=== PATIENT | female | born 1980 | race Caucasian/White ===

== ENCOUNTER 2017-06-05 09:07 | Emergency (ER) | payer MEDICAID, SELFPAY ==
[2017-06-05 09:24] LABS: UTC Influenza A Antigen Positive (Negative); UTC Influenza B Antigen Negative (Negative)
--- NOTE | 2017-06-05 09:27 | HMH.EDUTC ---
[facility] [place] Disposition Clinical Impression: Influenza A Disposition: Home, Self-Care Condition on Discharge: Good Instructions: DI for Influenza -- Adult Additional Instructions: Rest, fluids, Tylenol/Motrin as needed for fever. No work at [employer] until fever free X 24 hours. Forms: Work/School Release Time of Disposition: 09:38 Medical Decision Making - Medical Records Medical records reviewed: Yes: I reviewed the patient's medical records. - Lab Data Lab results reviewed: Yes: I reviewed the patient's lab results. Lab Results 06/05/17 09:22: Influenza Type A Ag Positive A, Influenza Type B Ag Negative - Jayden Inquiry Pt receiving controlled substance: No [facility] [place] HPI - General Stated complaint: flu like symptoms Time Seen by Provider: 06/05/17 09:28 - History of Present Illness Provider Complaint: Headache, fever, body aches, chills and sneezing X 1 day. No cough. No vomiting or diarrhea. Does have ear pain. Multiple sick contacts. Onset (ago): day(s) (1) Location: head, chest Associated symptoms: fever/chills, headaches, loss of appetite, malaise Treatments prior to arrival: NSAID - Related Data Home Medications Medication Instructions Recorded Confirmed escitalopram 20 mg tablet 20 mg PO QDAY 05/26/17 estradiol 2 mg tablet 2 mg PO QDAY 05/26/17 pantoprazole 40 mg tablet,delayed 40 mg PO QAM 05/26/17 release Previous Rx's Medication Instructions Recorded prednisone 20 mg tablet 20 mg PO BID #10 tab 05/26/17 Brompheniramine/Pseudoephed/Dm 5 - 10 ml PO Q4HP PRN 10 Days #240 06/05/17 [Bromfed DM Cough Syrup 5mL] syrup Oseltamivir Phosphate [Tamiflu 75 mg PO BID 5 Days #10 cap 06/05/17 75mg Capsule] Allergies Allergy/AdvReac Type Severity Reaction Status Date / Time lamotrigine [From Lamictal] Allergy Intermediate I-RASH Verified 05/26/17 14:15 codeine AdvReac Mild NA-NAUSEA Verified 05/26/17 14:15 [facility] History Medical History: Reports:: Depression, Gastroesophageal Reflux Disease(GERD) Other Surgeries: Yes: Appendectomy, Hysterectomy-Total, Other Amputation: No Fractures: Yes - *Social History Smoking Status: Current every day smoker Tobacco Type: cigarettes # Packs/Day (cigarettes): 1 #Yrs smoked (if former smoker): 20 Alcohol Intake: never Substance Use Type: denies use *Family Hx:: Cancer, Heart Attack, Hypertension, Thyroid Disorder ROS Obtained: Yes All systems reviewed & no additional complaints - Constitutional Constitutional: Reports body ache, Reports chills, Reports fever(s) - ENT Ears, Nose, Mouth, and Throat: Reports otalgia, Reports nasal congestion, Reports nasal discharge, Reports sinus pressure - Musculoskeletal Musculoskeletal: Reports muscle aches Physical Exam - General General appearance: alert - Head Head exam: atraumatic, normocephalic, normal inspection - Eye Eye exam: Present: normal appearance, PERRL, EOMI - ENT ENT exam: Present: normal exam, normal oropharynx, mucous membranes moist, TM's normal bilaterally, normal external ear exam - Expanded ENT Exam TM/Canal exam: Bilateral TM: effusion Nose exam: Present: sinus tenderness - Neck Neck exam: Present: normal inspection, full ROM, trachea midline. Absent: meningismus, lymphadenopathy - Chest Chest inspection: Present: normal inspection, symmetric chest wall rise. Absent: tenderness - Respiratory Respiratory exam: Present: normal lung sounds bilaterally. Absent: respiratory distress - Cardiovascular Cardiovascular exam: Present: regular rate, normal rhythm. Absent: JVD - Abdominal Exam Abdominal exam: Present: soft, normal bowel sounds. Absent: distention, tenderness, guarding - Extremities Exam Extremities exam: Present: normal inspection, full ROM, normal capillary refill. Absent: calf tenderness - Back Exam Back exam: Present: normal inspection. Absent: tenderness - Neurological Exam Neurological exam: Present: alert, oriented X3 - Psych
[2017-06-05 09:28] VITALS: BP 133/87; PULSE 95; RESP 20; TEMP 36.7; O2SAT 96; BMI 36.4
--- NOTE | 2017-06-05 09:31 | ED_ITS ---
[facility] [place]ression: Influenza A Disposition: Home, Self-Care Condition on Discharge: Good Instructions: DI for Influenza -- Adult Additional Instructions: Rest, fluids, Tylenol/Motrin as needed for fever. No work at [employer] until fever free X 24 hours. Forms: Work/School Release Time of Disposition: 09:38 Medical Decision Making - Medical Records Medical records reviewed: Yes: I reviewed the patient's medical records. - Lab Data Lab results reviewed: Yes: I reviewed the patient's lab results. Lab Results 06/05/17 09:22: Influenza Type A Ag Positive A, Influenza Type B Ag Negative - Jayden Inquiry Pt receiving controlled substance: No [facility] [place] - General Stated complaint: flu like symptoms Time Seen by Provider: 06/05/17 09:28 - History of Present Illness Provider Complaint: Headache, fever, body aches, chills and sneezing X 1 day. No cough. No vomiting or diarrhea. Does have ear pain. Multiple sick contacts. Onset (ago): day(s) (1) Location: head, chest Associated symptoms: fever/chills, headaches, loss of appetite, malaise Treatments prior to arrival: NSAID - Related Data Home Medications Medication Instructions Recorded Confirmed escitalopram 20 mg tablet 20 mg PO QDAY 05/26/17 estradiol 2 mg tablet 2 mg PO QDAY 05/26/17 pantoprazole 40 mg tablet,delayed 40 mg PO QAM 05/26/17 release Previous Rx's Medication Instructions Recorded prednisone 20 mg tablet 20 mg PO BID #10 tab 05/26/17 Brompheniramine/Pseudoephed/Dm 5 - 10 ml PO Q4HP PRN 10 Days #240 06/05/17 [Bromfed DM Cough Syrup 5mL] syrup Oseltamivir Phosphate [Tamiflu 75 mg PO BID 5 Days #10 cap 06/05/17 75mg Capsule] Allergies Allergy/AdvReac Type Severity Reaction Status Date / Time lamotrigine [From Lamictal] Allergy Intermediate I-RASH Verified 05/26/17 14:15 codeine AdvReac Mild NA-NAUSEA Verified 05/26/17 14:15 [facility] History Medical History: Reports:: Depression, Gastroesophageal Reflux Disease(GERD) Other Surgeries: Yes: Appendectomy, Hysterectomy-Total, Other Amputation: No Fractures: Yes - *Social History Smoking Status: Current every day smoker Tobacco Type: cigarettes # Packs/Day (cigarettes): 1 #Yrs smoked (if former smoker): 20 Alcohol Intake: never Substance Use Type: denies use *Family Hx:: Cancer, Heart Attack, Hypertension, Thyroid Disorder ROS Obtained: Yes All systems reviewed & no additional complaints - Constitutional Constitutional: Reports body ache, Reports chills, Reports fever(s) - ENT Ears, Nose, Mouth, and Throat: Reports otalgia, Reports nasal congestion, Reports nasal discharge, Reports sinus pressure - Musculoskeletal Musculoskeletal: Reports muscle aches Physical Exam - General General appearance: alert - Head Head exam: atraumatic, normocephalic, normal inspection - Eye Eye exam: Present: normal appearance, PERRL, EOMI - ENT ENT exam: Present: normal exam, normal oropharynx, mucous membranes moist, TM's normal bilaterally, normal external ear exam - Expanded ENT Exam TM/Canal exam: Bilateral TM: effusion Nose exam: Present: sinus tenderness - Neck Neck exam: Present: normal inspection, full ROM, trachea midline. Absent: meningismus, lymphadenopathy - Chest Chest inspection: Present: normal inspection, symmetric chest wall ri
== END 2017-06-05 09:46 | disposition home or self-care (01) ==
LOC: UTC 09:50
PROVIDERS: Emergency Provider Physician Assistant; Family Provider Nurse Practitioner Family; PCP Nurse Practitioner Family
DX: J10.1 Influenza due to other identified influenza virus with other respiratory manifestations (principal); Z79.899 Other long term (current) drug therapy; K21.9 Gastro-esophageal reflux disease without esophagitis; F17.210 Nicotine dependence, cigarettes, uncomplicated
CPT/HCPCS: 87804; 99202

== ENCOUNTER → 2017-07-31 14:45 | Outpatient (CLI) | payer MEDICAID, SELFPAY ==
[2017-07-31 19:26] LABS: Amphetamine/Metha Screen,Urine Negative ng/mL (<1000); Barbiturates Screen,Urine Negative ng/mL (<200); Benzodiazepines Screen,Urine Negative ng/mL (200); Cannabinoid Screen,Urine Negative ng/mL (<50); Cocaine Screen,Urine Negative ng/g (<300); Methadone Screen,Urine Negative ng/mL (<300); Opiate Screen,Urine Negative ng/mL (<300); Phencyclidine Screen,Urine Negative ng/mL (<25)
== END ==
PROVIDERS: Visit Provider Nurse Practitioner Family
DX: R68.89 Other general symptoms and signs (principal); Z79.899 Other long term (current) drug therapy
CPT/HCPCS: 80305

== ENCOUNTER 2017-08-09 10:21 | Emergency (ER) | payer MEDICAID, SELFPAY ==
[2017-08-09 10:32] VITALS: BP 144/91; PULSE 109; RESP 20; TEMP 36.8; O2SAT 98; BMI 35.5
--- NOTE | 2017-08-09 10:49 | HMH.EDUTC ---
[facility] [place] Clinical Impression: Upper respiratory infection Qualifiers: URI type: unspecified URI Qualified Code(s): J06.9 - Acute upper respiratory infection, unspecified Disposition: Home, Self-Care Condition on Discharge: Good Instructions: Cough, Sore Throat, DI for Sinusitis Additional Instructions: * Monitor Temp. Tylenol and/or Ibuprofen as needed. ER if fever is no less than 101 despite alternating Tylenol and Ibuprofen * Encourage fluids, water, Gatorade, powerade, pedialyte if /toddler/or child * Warm salt water gargles for throat irritation *Warm fluids *Sore throat lozenges *Sleep elevated *humidifier or vaporizer Lots of rest Increase fluids, water, Gatorade, powerade *Your throat swab was sent to lab for culture. Those results area typically sent to your primary care physician. Be sure to follow up in 2-3 days if no improvement so they can review those results and treat if necessary If you dont have primary care I recommend you get one, but in the mean time you will have to return to a walk in clinic Follow up IMMEDIATELY for new or worsening of symptoms OR no noticeable improvement over the next 48-72 hours. 911 immediately for any life threatening symptoms such as chest pain or difficulty breathing Prescriptions: Azithromycin [Z-Gold 250mg Tab] 250 mg PO UD DOSE PK #6 tab Dextromethorphan Polistirex [Delsym] 10 ml PO Q12H PRN #350 [email or web address].[email or web address] PRN Reason: Cough predniSONE [Prednisone 20mg Tab] 20 mg PO BID #10 tab Referrals: Gaetano Cai APRN [Primary Care Provider] - Time of Disposition: 11:06 Medical Decision Making - Medical Records Medical records reviewed: Yes: I reviewed the patient's medical records. - Jayden Inquiry Pt receiving controlled substance: No Jayden was queried for this patient: No Vital Signs: 08/09/17 10:32 Temperature 98.2 F Temperature Source Oral Pulse Rate [Right Brachial] 109 H Respiratory Rate 20 Blood Pressure [Right Arm] 144/91 Blood Pressure Mean [Right Arm] 108 Blood Pressure Source [Right Arm] Automatic Cuff Blood Pressure Position [Right Arm] Sitting 02 Sat by Pulse Oximetry 98 Oxygen Delivery Method Room Air - Lab Data Lab results reviewed: Yes: I reviewed the patient's lab results. [facility] [place] - General Stated complaint: sore/swollen throat sneezing cough stuffy nose Time Seen by Provider: 08/09/17 10:45 Mode of Arrival: Family Vehicle Source of Information: Patient Limitations: No Limitations Description of Symptoms (Recalled from Triage Doc. by RN): C/O SORE THROAT,COUGH AND NASAL CONGESTION HEENT Symptoms (Recalled from RN notes): Yes Resp Symptoms (Recalled from RN notes): Yes Skin Symptoms (Recalled from RN notes): No MS Symptoms (Recalled from RN notes): No Functional Status (Recalled from RN notes): N/A - History of Present Illness Provider Complaint: Patient state that she has been having sinus pain and pressure along with sore throat, cough and chills States that she has had the flu already this season and worried that she may have it again State that she feels bad and had a sinus headache - Related Data Home Medications Medication Instructions Recorded Confirmed escitalopram 20 mg tablet 20 mg PO QDAY 05/26/17 08/09/17 estradiol 2 mg tablet 2 mg PO QDAY 05/26/17 08/09/17 pantoprazole 40 mg tablet,delayed 40 mg PO QAM 05/26/17 08/09/17 release Phentermine HCl [Adipex-P] 37.5 mg PO DAILY 08/09/17 08/09/17 Previous Rx's Medication Instructions Recorded Azithromycin [Z-Gold 250mg Tab] 250 mg PO UD DOSE PK #6 tab 08/09/17 Dextromethorphan Polistirex 10 ml PO Q12H PRN #350 estefany.er.12h 08/09/17 [Delsym] predniSONE [Prednisone 20mg 20 mg PO BID #10 tab 08/09/17 Tab] Allergies Allergy/AdvReac Type Severity Reaction Status Date / Time lamotrigine [From Lamictal] Allergy Intermediate I-RASH Verified 07/31/17 09:02 codeine AdvReac Mild NA-NAUSEA Verified 07/31/17 09:02 - Worker's Comp I
--- NOTE | 2017-08-09 11:03 | ED_ITS ---
[facility] – [place] Disposition Clinical Impression: Upper respiratory infection Qualifiers: URI type: unspecified URI Qualified Code(s): J06.9 - Acute upper respiratory infection, unspecified Disposition: Home, Self-Care Condition on Discharge: Good Instructions: Cough, Sore Throat, DI for Sinusitis Additional Instructions: * Monitor Temp. Tylenol and/or Ibuprofen as needed. ER if fever is no less than 101 despite alternating Tylenol and Ibuprofen * Encourage fluids, water, Gatorade, powerade, pedialyte if /toddler/or child * Warm salt water gargles for throat irritation *Warm fluids *Sore throat lozenges *Sleep elevated *humidifier or vaporizer Lots of rest Increase fluids, water, Gatorade, powerade *Your throat swab was sent to lab for culture. Those results area typically sent to your primary care physician. Be sure to follow up in 2-3 days if no improvement so they can review those results and treat if necessary If you don? t have primary care I recommend you get one, but in the mean time you will have to return to a walk in clinic Follow up IMMEDIATELY for new or worsening of symptoms OR no noticeable improvement over the next 48-72 hours. 911 immediately for any life threatening symptoms such as chest pain or difficulty breathing Prescriptions: Azithromycin [Z-Gold 250mg Tab] 250 mg PO UD DOSE PK #6 tab Dextromethorphan Polistirex [Delsym] 10 ml PO Q12H PRN #350 [email or web address].er.12h PRN Reason: Cough predniSONE [Prednisone 20mg Tab] 20 mg PO BID #10 tab Referrals: Gaetano Cai APRN [Primary Care Provider] - Time of Disposition: 11:06 Medical Decision Making - Medical Records Medical records reviewed: Yes: I reviewed the patient's medical records. - Jayden Inquiry Pt receiving controlled substance: No Jayden was queried for this patient: No Vital Signs: 08/09/17 10:32 Temperature 98.2 F Temperature Source Oral Pulse Rate [Right Brachial] 109 H Respiratory Rate 20 Blood Pressure [Right Arm] 144/91 Blood Pressure Mean [Right Arm] 108 Blood Pressure Source [Right Arm] Automatic Cuff Blood Pressure Position [Right Arm] Sitting 02 Sat by Pulse Oximetry 98 Oxygen Delivery Method Room Air - Lab Data Lab results reviewed: Yes: I reviewed the patient's lab results. [facility] [place] HPI - General Stated complaint: sore/swollen throat sneezing cough stuffy nose Time Seen by Provider: 08/09/17 10:45 Mode of Arrival: Family Vehicle Source of Information: Patient Limitations: No Limitations Description of Symptoms (Recalled from Triage Doc. by RN): C/O SORE THROAT, COUGH AND NASAL CONGESTION HEENT Symptoms (Recalled from RN notes): Yes Resp Symptoms (Recalled from RN notes): Yes Skin Symptoms (Recalled from RN notes): No MS Symptoms (Recalled from RN notes): No Functional Status (Recalled from RN notes): N/A - History of Present Illness Provider Complaint: Patient state that she has been having sinus pain and pressure along with sore throat, cough and chills States that she has had the flu already this season and worried that she may have it again State that she feels bad and had a sinus headache - Related Data Home Medications Medication Instructions Recorded Confirmed escitalopram 20 mg tablet 20 mg PO QDAY 05/26/17 08/09/17 estradiol 2 mg tablet 2 mg PO QDAY 05/26/17 08/09/17 pantoprazole 40 mg tablet,delayed 40 mg PO QAM 05/26/17 08/09/17 release Phentermine HCl [Adipex-P] 37.5 mg PO AYANNA
[2017-08-09 11:19] LABS: UTC Influenza A Antigen Negative (Negative); UTC Influenza B Antigen Negative (Negative); UTC Strep Screen (Rapid) Negative (Negative)
[2017-08-09 11:29] VITALS: BP 140/88; PULSE 90; RESP 20; TEMP 36.6; O2SAT 98
== END 2017-08-09 11:32 | disposition home or self-care (01) ==
PROVIDERS: Emergency Provider Nurse Practitioner; Family Provider Nurse Practitioner Family; PCP Nurse Practitioner Family
DX: J10.1 Influenza due to other identified influenza virus with other respiratory manifestations (principal); F17.210 Nicotine dependence, cigarettes, uncomplicated; K21.9 Gastro-esophageal reflux disease without esophagitis; Z88.6 Allergy status to analgesic agent; Z88.8 Allergy status to other drugs, medicaments and biological substances
CPT/HCPCS: 87804; 87880; 99202

== ENCOUNTER → 2018-03-31 20:04 | Outpatient (CLI) | payer MEDICAID, SELFPAY ==
[2018-03-31 21:23] LABS: Amphetamine/Metha Screen,Urine Negative ng/mL (<1000); Barbiturates Screen,Urine Negative ng/mL (<200); Benzodiazepines Screen,Urine Negative ng/mL (<200); Cannabinoid Screen,Urine Negative ng/mL (<50); Cocaine Screen,Urine Negative ng/mL (<300); Methadone Screen,Urine Negative ng/mL (<300); Opiate Screen,Urine Negative ng/mL (<300); Phencyclidine Screen,Urine Negative ng/mL (<25)
== END ==
PROVIDERS: Visit Provider Nurse Practitioner Family
DX: Z79.899 Other long term (current) drug therapy (principal)
CPT/HCPCS: 80305

== ENCOUNTER → 2018-04-23 09:08 | Outpatient (CLI) | payer MEDICAID, SELFPAY ==
--- NOTE | 2018-04-23 09:11 | CA_ITS ---
PROCEDURE: 2-D M-mode and color Doppler study INDICATIONS FOR THE TEST: Chest pain + COPD Heart Murmur Tobacco Smoking Palpitations+ Fatigue Syncope Edema+ Hypertension+Diabetes Mellitus Rheumatic Fever SOB ELIZONDO Obesity+Hyperlipidemia Family History HD Additional History AYDE, adn EKG PATIENT INFORMATION HEIGHT: 68 WEIGHT:208 GENDER: Female B/P:158/100 2-D/M-MODE INTERPRETATION: 2-D MEASUREMENTS OBSERVED VALUES IN CMS Right Ventricular Dimension (RVDd) 1.3 Interventricular Septum (Thickness)(IVsd) 1.1 Left Ventricular Internal Dimensions(LVIDd) 4.7 Left Ventricular Posterior Wall (Thickness)(LVPWd) 1.1 Aortic Root 2.0 Aortic Cusp Separation 2.0 Left Atrial Dimensions (LAD) 3.7 2D 1. Left atrium is normal size, left ventricle is normal size, there is no concentric left ventricular hypertrophy, visually estimated ejection fraction 55% with no regional wall motion abnormality. 2. The right atrium and right ventricle are normal size and contractility. 3. The aortic, mitral and tricuspid valvular grossly normal. 4. The pulmonic valve is poorly visualized. 5. No significant pericardial effusion noted. DOPPLER INTERROGATION: Doppler interrogation of the aortic, mitral and tricuspid valvular presence of mild mitral and tricuspid regurgitation, tricuspid regurgitation jet velocity is inadequate for calculation of the right ventricular systolic pressure, diastolic parameters are within normal range. CONCLUSION: 1. Normal left ventricular size, preserved left ventricular systolic function, visually estimated ejection fraction 55% with no regional wall motion abnormality, diastolic parameters are within normal range. 2. Mild mitral and tricuspid regurgitation. 3. No significant pericardial effusion noted.
== END ==
PROVIDERS: PCP Emergency Medicine; Visit Provider Internal Medicine Cardiovascular Disease
DX: R07.9 Chest pain, unspecified (principal); R94.31 Abnormal electrocardiogram [ECG] [EKG]; I10 Essential (primary) hypertension; E66.9 Obesity, unspecified; F43.9 Reaction to severe stress, unspecified; G47.33 Obstructive sleep apnea (adult) (pediatric); K21.9 Gastro-esophageal reflux disease without esophagitis; R06.83 Snoring; Z72.0 Tobacco use
CPT/HCPCS: 93306

== ENCOUNTER → 2018-04-26 08:24 | Outpatient (CLI) | payer MEDICAID, SELFPAY ==
[2018-04-26 08:52] LABS: Basophils # 0.1 K/mm3 (0-0.2); Basophils % 0.6 % (0.1-2.0); Eosinophils # 0.1 K/mm3 (0.0-0.4); Eosinophils % 1.6 % (0.1-12.0); Hematocrit 38.2 % (37.0-47.0); Hemoglobin 12.5 g/dL (12.2-16.2); Lymphocytes # 3.1 K/mm3 (0.7-4.5); Lymphocytes % 35.7 % (10-50); Mean Corpuscular HGB Conc 32.8 g/dL (31.8-35.4); Mean Corpuscular Hemoglobin 29.3 pg (27.0-31.2); Mean Corpuscular Volume 89.2 fl (81-99); Mean Platelet Volume 8.4 fl (7.4-10.4); Monocytes # 0.4 K/mm3 (0.1-1.0); Monocytes % 4.5 % (1.7-9.3); Neutrophils # 4.9 K/mm3 (1.8-7.8); Neutrophils % 57.5 % (37.0-80.0); Platelet Count 256 K/mm3 (142-424); Red Blood Count 4.28 M/mm3 (4.20-5.40); Red Cell Distribution Width 12.8 % (11.5-17.5); White Blood Count 8.5 K/mm3 (4.8-10.8)
[2018-04-26 10:11] LABS: Alanine Aminotransferase 24 U/L (12-78); Albumin Level 3.1 gm/dL (3.4-5.0); Albumin/Globulin Ratio 0.9 (1.1-1.8); Alkaline Phosphatase 76 U/L (46-116); Anion Gap 11.6 mEq/L (5-15); Aspartate Amino Transferase 13 U/L (15-37); Bilirubin,Total 0.3 mg/dL (0.2-1.0); Blood Urea Nitrogen 9 mg/dL (7-18); Calcium 8.5 mg/dL (8.5-10.1); Carbon Dioxide 28 mmol/L (21.0-32.0); Chloride 106 mmol/L (98-107); Creatinine,Serum 0.64 mg/dL (0.55-1.02); Estimated Glomerular Filt Rate 106 ml/min (>60); GFR (African American) 128 ML/MIN (>60); Globulin 3.6 gm/dl (1.3-3.2); Glucose 105 mg/dL (74-106); Potassium 4.6 mmoL/L (3.5-5.1); Sodium 141 mmol/L (136-145); T4 (Thyroxine) 9.5 ug/dl (4.7-13.3); Thyroid Stimulating Hormone 2.45 uIU/ml (0.358-3.740); Total Protein,Serum 6.7 gm/dL (6.4-8.2)
== END ==
PROVIDERS: Visit Provider Nurse Practitioner Family
DX: I10 Essential (primary) hypertension (principal)
CPT/HCPCS: 36415; 80053; 84436; 84443; 85025

== ENCOUNTER → 2019-06-02 11:25 | Outpatient (CLI) | payer MEDICAID, SELFPAY ==
[2019-06-05 21:50] LABS: Amphetamines IA Negative ng/mL (Cutoff:50); Barbituates IA Negative ug/mL (Cutoff:0.1); Benzodiazepines IA Negative ng/mL (Cutoff:20); Cocaine & Metabolites IA Negative ng/mL (Cutoff:25); Methadone IA Negative ng/mL (Cutoff:25); Opiates IA Negative ng/mL (Cutoff:5); Oxycodone IA Negative ng/mL (Cutoff:5); Phencyclidine IA Negative ng/mL (Cutoff:8); THC (marijauna) metabolite IA Negative ng/mL (Cutoff:5)
[2019-06-08 17:34] LABS: Propoxyphene IA Negative ng/mL (Cutoff:50)
[2019-07-29 19:03] LABS: Buprenorphine NEGATIVE; Norbuprenorphine NEGATIVE
== END ==
PROVIDERS: Visit Provider Nurse Practitioner Psychiatric/Mental Health
DX: F31.81 Bipolar II disorder (principal); F41.1 Generalized anxiety disorder; G47.00 Insomnia, unspecified
CPT/HCPCS: 36415; 80307; 80348

== ENCOUNTER → 2020-05-14 14:11 | Outpatient (CLI) | payer MEDICAID, SELFPAY ==
--- NOTE | 2020-05-14 14:14 | XR_ITS ---
PROCEDURE: XR CERVICAL SPINE 4V CLINICAL INDICATION: neck pain COMPARISON: No exams were available for comparison FINDINGS: There is normal curvature and alignment. C1 through C7 appear intact. Disc spaces are normal throughout. Oblique films show normal neural foramina bilaterally. The prevertebral soft tissues are normal. The odontoid view shows the tip of the odontoid to be partially obscured by the simple skull but it appears grossly normal on the oblique views. IMPRESSION: Unremarkable cervical spine Dictated by: Dr. Shemar Zaidi MD 05/14/2020 14:33 Dr. Shemar Zaidi MD in [place] 05/14/2020 14:33
== END ==
PROVIDERS: PCP Emergency Medicine; Visit Provider Physician Assistant
DX: M54.2 Cervicalgia (principal)
CPT/HCPCS: 72050

== ENCOUNTER 2020-06-21 10:19 | Emergency (ER) | payer MEDICAID, SELFPAY ==
[2020-06-21 10:20] VITALS: BP 153/103; PULSE 74; RESP 20; TEMP 36.6; O2SAT 99; BMI 39.1
--- NOTE | 2020-06-21 10:25 | HMH.EDUTC ---
[facility] – [place] Disposition Clinical Impression: Gastroenteritis, Viral syndrome Disposition: Home, Self-Care Condition on Discharge: Good Instructions: DI for Viral Gastroenteritis -- Adult Additional Instructions: Drink plenty of fluids. Take tylenol for pain or fever. Take the zofran for nausea. Follow up with your regular doctor. GO TO THE ER FOR ANY WORSENING SYMPTOMS Prescriptions: Ondansetron [Zofran 4mg ODT] 4 mg PO Q8HP PRN #20 tab.rapdis PRN Reason: Nausea Transmission Status: Received by [facility] Referrals: Daniel Khalil MD [Primary Care Provider] - Forms: Work/School Release Time of Disposition: 10:45 Medical Decision Making - Medical Records Medical records reviewed: No: I reviewed the patient's medical records. - Jayden Inquiry Pt receiving controlled substance: No Vital Signs: 06/21/20 10:20 06/21/20 10:48 Temperature 97.8 F 97.8 F Temperature Source Oral Pulse Rate 74 Pulse Rate [Right Brachial] 74 Respiratory Rate 20 20 Blood Pressure 153/103 H Blood Pressure [Right Arm] 153/103 H Blood Pressure Mean [Right Arm] 119 Blood Pressure Source [Right Arm] Automatic Cuff Blood Pressure Position [Right Arm] Sitting 02 Sat by Pulse Oximetry 99 Oxygen Delivery Method Room Air [facility] [place] HPI - General Stated complaint: vomiting,diarrhea Time Seen by Provider: 06/21/20 10:25 - History of Present Illness Provider Complaint: She states that since yesterday evening around 1800 she has had nausea and diarrhea. She has not vomited, but she has felt like she is going to. She denies any abdominal pain. She states that she has had her appendix and gall bladder removed removed in the past. She denies any exposure to covid-19. She refuses a covid test today. - Related Data Previous Rx's Medication Instructions Recorded pantoprazole 40 mg tablet,delayed 40 mg PO DAILY #90 tab 12/11/19 release loratadine 10 mg tablet See Rx Instructions .ROUTE 03/29/20 .COMPLEX #90 tab phentermine 37.5 mg tablet 37.5 mg PO DAILY #30 tab 04/04/20 methylprednisolone 4 mg tablets in 4 mg PO PER PKG DIR 6 Days #21 tab 05/14/20 a dose pack aripiprazole 20 mg tablet 20 mg PO DAILY #30 tab 06/19/20 doxepin 25 mg capsule 25 mg PO QHS #30 cap 06/19/20 escitalopram oxalate 20 mg tablet 20 mg PO DAILY 30 Days #30 tab 06/19/20 hydroxyzine pamoate 25 mg capsule 25 mg PO TID PRN #90 cap 06/19/20 Ondansetron [Zofran 4mg ODT] 4 mg PO Q8HP PRN #20 tab.rapdis 06/21/20 Allergies Allergy/AdvReac Type Severity Reaction Status Date / Time lamotrigine [From Lamictal] Allergy Intermediate I-RASH Verified 05/14/20 10:23 codeine AdvReac Mild NA-NAUSEA Verified 05/14/20 10:23 [facility] History - Hepatitis A Screen Attestation statement:: This patient has been screened for Hepatitis A risk factors. I have reviewed the patient's past medical history: Yes Medical History: Reports:: Anxiety, Depression, Gastroesophageal Reflux Disease(GERD), Hypertension, Migraine Denies:: Atherosclerotic Heart Disease, Atrial Fibrillation, Cardiomyopathy, Congestive Heart Failure, Congenital Heart Disease, Coronary Artery Disease, Diabetes Mellitus Type 1, Diabetes Mellitus Type 2, Internal Pacemaker, Myocardial Infarction, Supraventricular Tachycardia, Valvular Heart Disease Other Surgeries: Yes: Appendectomy, Hysterectomy-Total, Other. No: Pacemaker Amputation: No Fractures: Yes (LEG) Comment: rt leg - Social History Smoking Status: Current every day smoker Tobacco Type: cigarettes # Packs/Day (cigarettes): 1 #Yrs smoked (if former smoker): 22 Alcohol Intake: never Substance Use Type: denies use, methamphetamine, crack/cocaine, marijuana Occupational Status: other - Psychiatric History Pschychiatric History:: Reports:: Anxiety, Depression Family Hx:: Cancer, Heart Attack, Hypertension, Thyroid Disorder Comment: Maternal Grandmother- of [place] at 63. Mother-AFIB ROS Obtained: Yes All syste
[2020-06-21 10:48] VITALS: BP 153/103; PULSE 74; RESP 20; TEMP 36.6; O2SAT 99
== END 2020-06-21 10:49 | disposition home or self-care (01) ==
PROVIDERS: Emergency Provider Nurse Practitioner Family; PCP Emergency Medicine
DX: K52.9 Noninfective gastroenteritis and colitis, unspecified (principal); B34.9 Viral infection, unspecified; F41.8 Other specified anxiety disorders; K21.9 Gastro-esophageal reflux disease without esophagitis; G43.709 Chronic migraine without aura, not intractable, without status migrainosus; Z88.5 Allergy status to narcotic agent; F17.210 Nicotine dependence, cigarettes, uncomplicated; Z79.899 Other long term (current) drug therapy
CPT/HCPCS: 99202; G0463

== ENCOUNTER 2020-08-11 17:18 | Emergency (ER) | payer MEDICAID, SELFPAY ==
[2020-08-11 17:25] VITALS: BP 168/90; PULSE 96; RESP 14; TEMP 36.9; O2SAT 98; BMI 39.3
--- NOTE | 2020-08-11 17:34 | HMH.EDUTC ---
[facility] [place] Clinical Impression: Contact dermatitis Qualifiers: Contact dermatitis type: allergic Contact dermatitis trigger: unspecified trigger Qualified Code(s): L23.9 - Allergic contact dermatitis, unspecified cause Disposition: Home, Self-Care Condition on Discharge: Good Instructions: DI for Contact Dermatitis, Contact Dermatitis Additional Instructions: apply cream if worsen return benadryl as needed for itching Prescriptions: Triamcinolone Acetonide 15 gm TP BID 7 Days #1 cream..g. Prescription Printed Referrals: Daniel Khalil MD [Primary Care Provider] - Time of Disposition: 17:46 Medical Decision Making - Jayden Inquiry Pt receiving controlled substance: No Vital Signs: 08/11/20 17:25 Temperature 98.5 F Temperature Source Oral Pulse Rate [Right] 96 H Respiratory Rate 14 Blood Pressure [Right Arm] 168/90 H Blood Pressure Mean [Right Arm] 116 Blood Pressure Source [Right Arm] Automatic Cuff Blood Pressure Position [Right Arm] Sitting 02 Sat by Pulse Oximetry 98 Oxygen Delivery Method Room Air [facility] [place] - General Chief complaint: [facility] Stated complaint: rash on hands Time Seen by Provider: 08/11/20 17:34 Mode of Arrival: Ambulatory Source of Information: Patient Limitations: No Limitations Description of Symptoms (Recalled from Triage Doc. by RN): pt has a rashe on both hands, both thumbs and pointing fingers. states shes been outdoors fishing. HEENT Symptoms (Recalled from RN notes): No Resp Symptoms (Recalled from RN notes): No Skin Symptoms (Recalled from RN notes): Yes (rash on hands) MS Symptoms (Recalled from RN notes): No Functional Status (Recalled from RN notes): na - History of Present Illness Provider Complaint: 39 yr old female presents with rash on both hands, both thumbs and pointing fingers. states shes been outdoors fishing. - Related Data Previous Rx's Medication Instructions Recorded pantoprazole 40 mg tablet,delayed 40 mg PO DAILY #90 tab 12/11/19 release phentermine 37.5 mg tablet 37.5 mg PO DAILY #30 tab 04/04/20 methylprednisolone 4 mg tablets in 4 mg PO PER PKG DIR 6 Days #21 tab 05/14/20 a dose pack doxepin 25 mg capsule 25 mg PO QHS #30 cap 06/19/20 escitalopram oxalate 20 mg tablet 20 mg PO DAILY 30 Days #30 tab 06/19/20 Ondansetron [Zofran 4mg ODT] 4 mg PO Q8HP PRN #20 tab.rapdis 06/21/20 meloxicam 7.5 mg tablet 7.5 mg PO DAILY 30 Days #30 tab 06/26/20 methylprednisolone 4 mg tablets in 4 mg PO PER PKG DIR 7 Days #7 tab 06/26/20 a dose pack aripiprazole 20 mg tablet 20 mg PO DAILY #30 tab 07/13/20 hydroxyzine pamoate 25 mg capsule 25 mg PO TID PRN #90 cap 07/13/20 loratadine 10 mg tablet See Rx Instructions .ROUTE 07/16/20 .COMPLEX #90 tab Triamcinolone Acetonide 15 gm TP BID 7 Days #1 cream..g. 08/11/20 Allergies Allergy/AdvReac Type Severity Reaction Status Date / Time lamotrigine [From Lamictal] Allergy Intermediate I-RASH Verified 06/26/20 13:42 codeine AdvReac Mild NA-NAUSEA Verified 06/26/20 13:42 - Worker's Comp Is this a Worker's Comp case?: No [facility] History - Hepatitis A Screen Drug use history?: No High risk sexual behaviors?: No History of sexually transmitted infection?: No Currently employed?: No Childcare worker?: No Do you have indoor plumbing?: Yes Do you have electricity?: Yes Attestation statement:: This patient has been screened for Hepatitis A risk factors. I have reviewed the patient's past medical history: Yes Medical History: Reports:: Anxiety, Depression, Gastroesophageal Reflux Disease(GERD), Hypertension, Migraine Denies:: Atherosclerotic Heart Disease, Atrial Fibrillation, Cardiomyopathy, Congestive Heart Failure, Congenital Heart Disease, Coronary Artery Disease, Diabetes Mellitus Type 1, Diabetes Mellitus Type 2, Internal Pacemaker, Myocardial Infarction, Supraventricular Tachycardia, Valvular Heart Disease Other Surgeries: Yes: Appendectomy, Hysterectomy-Total, Other
[2020-08-11 17:40] VITALS: BP 152/82; PULSE 93; RESP 16; TEMP 36.6
== END 2020-08-11 17:48 | disposition home or self-care (01) ==
PROVIDERS: Emergency Provider Nurse Practitioner Family; PCP Emergency Medicine
DX: L23.9 Allergic contact dermatitis, unspecified cause (principal); F41.8 Other specified anxiety disorders; K21.9 Gastro-esophageal reflux disease without esophagitis; I10 Essential (primary) hypertension; F17.210 Nicotine dependence, cigarettes, uncomplicated; Z88.5 Allergy status to narcotic agent; Z79.899 Other long term (current) drug therapy
CPT/HCPCS: 96372; 99202; G0463

== ENCOUNTER 2020-09-06 20:12 | Observation (INO) | payer MEDICAID, SELFPAY ==
[2020-09-06 20:13] VITALS: BMI 39.6
--- NOTE | 2020-09-06 20:14 | XR_ITS ---
PROCEDURE: XR CHEST PORTABLE CLINICAL HISTORY: Chest Pain COMPARISON: CT CTAC CTA-CHEST from 04/01/2017 CR CXR2V XR chest 2V from 04/17/2018 CR CXR2V XR chest 2V from 04/25/2018 CR CXR2V XR chest 2V from 10/03/2018 FINDINGS: The cardiomediastinal silhouette and pulmonary vascularity are within normal limits. The lungs are clear without infiltrates, suspicious nodules, or pleural effusions. No acute bony abnormalities. IMPRESSION: No acute findings. Dictated by: Cristian Garcia MD 09/07/2020 05:59 Cristian Garcia MD in [place] 09/07/2020 05:59
[2020-09-06 20:16] VITALS: BP 154/85; PULSE 78; RESP 18; TEMP 36.5; O2SAT 97; BMI 29.8
--- NOTE | 2020-09-06 20:20 | ECG_ITS ---
APPROVED REPORT Exam: Resting ECG HR:89 bpm ECG Measurements Heart Rate 89 AXES NJ 124 P 28 QRSd 76 QRS 57 QT 358 T 62 QTc 435 Conclusion Sinus rhythm with marked sinus arrhythmia ST abnormality, possible digitalis effect Abnormal ECG Electronically signed by : Parker Johnson, 09/07/2020 19:08:16
[2020-09-06 20:22] LABS: Basophils # 0.2 K/mm3 (0-0.2); Eosinophils # 0.2 K/mm3 (0.0-0.4); Eosinophils % 1.3 % (0.1-12.0); Hematocrit 44.7 % (37.0-47.0); Hemoglobin 14.9 g/dL (12.2-16.2); Lymphocytes # 5.3 K/mm3 (0.7-4.5); Mean Corpuscular HGB Conc 33.4 g/dL (31.8-35.4); Mean Corpuscular Hemoglobin 29.6 pg (27.0-31.2); Mean Corpuscular Volume 88.7 fl (81-99); Mean Platelet Volume 7.6 fl (7.4-10.4); Monocytes # 0.7 K/mm3 (0.1-1.0); Monocytes % 4.3 % (1.7-9.3); Neutrophils # 9.3 K/mm3 (1.8-7.8); Neutrophils % 59.4 % (37.0-80.0); Platelet Count 345 K/mm3 (142-424); Red Blood Count 5.04 M/mm3 (4.20-5.40); Red Cell Distribution Width 13.3 % (11.5-17.5); White Blood Count 15.6 K/mm3 (4.8-10.8)
[2020-09-06 20:25] LABS: Chloride 105 mmol/L (98-107); Sodium 141 mmol/L (136-145)
[2020-09-06 20:26] LABS: Potassium 3.6 mmoL/L (3.5-5.1)
[2020-09-06 20:28] LABS: Blood Urea Nitrogen 8 mg/dl (7-17); Estimated Glomerular Filt Rate 139 ml/min (>60); GFR (African American) 168 ML/MIN (>60)
[2020-09-06 20:29] LABS: Anion Gap 11.6 mEq/L (5-15); Carbon Dioxide 28 mmol/L (22.0-30.0); Glucose 120 mg/dl (74-100)
[2020-09-06 20:32] LABS: MANUAL DIFFERENTIAL MANUAL DIFFERENTIAL (MANUAL DIFF)
--- NOTE | 2020-09-06 20:41 | CT_ITS ---
PROCEDURE: CT ANGIO CHEST CLINCIAL INDICATION: chest pain Sudden onset of chest pain COMPARISON: CT CTAC CTA-CHEST from 04/01/2017 TECHNIQUE: IV Contrast: 70ML Isovue 370 Axial images obtained with sagittal and coronal reformats. All CT scans at the facility use one or more dose reduction, viz: automated exposure control, ma/kV adjustment per patient size (including targeted exams where dose is matched to indication, i.e. head), or iterative reconstruction technique. FINDINGS: HEART AND MEDIASTINAL STRUCTURES: 9 mm hypodense nodule in the left lobe of the thyroid gland. No evidence of pulmonary embolus, aortic aneurysm, or aortic dissection. There is some increased density in the anterior mediastinum and may be related to residual thymic tissue. LUNGS AND PLEURAL SPACES: Unremarkable. BONY STRUCTURES: No acute bony abnormalities apparent. UPPER ABDOMEN: Moderate amount of the ingested material within the stomach. ADDITIONAL FINDINGS: Scattered small axillary nodes IMPRESSION: 1. No acute finding 2. Other nonacute findings as described above. Dictated by: Cristian Garcia MD 09/07/2020 06:47 Cristian Garcia MD in [place] 09/07/2020 06:47
[2020-09-06 20:42] LABS: Creatinine Clearance Estimated 204 mL/min (50-200); Troponin I < 0.01 ng/ml (0.00-0.034)
[2020-09-06 20:56] LABS: Eosinophils % 3 % (0-3); Lymphocytes % 31 % (10-50); Monocytes % 2 % (2-9); Neutrophils % 62 % (42-76); Total Cells Counted 100
[2020-09-06 20:57] LABS: Platelet Estimate Normal; RBC Morphology Normal
--- NOTE | 2020-09-06 21:23 | HMH.EDCP ---
ED Disposition Clinical Impression: Obesity (BMI 30.0-34.9), Tobacco abuse Chest pain Qualifiers: Chest pain type: precordial pain Qualified Code(s): R07.2 - Precordial pain Hypertension Qualifiers: Hypertension type: essential hypertension Qualified Code(s): I10 - Essential (primary) hypertension Disposition: Admitted as Observation Condition on Discharge: Good - Critical Care Critical Care Time: No Attestation: On 09/06/20, the high probability of a clinically significant, sudden or life threatening deterioration of the following system(s) required my full and direct attention, intervention and personal management. The time I documented below is in addition to time spent performing reported procedures but includes the following listed in this critical care notation. Medical Decision Making - Medical Records Medical records reviewed: Yes: I reviewed the patient's medical records. - Jayden Inquiry Pt receiving controlled substance: No Vital Signs: 09/06/20 20:16 Temperature 97.7 F Temperature Source Oral Pulse Rate [Right Brachial] 78 Respiratory Rate 18 Blood Pressure [Right Arm] 154/85 H Blood Pressure Mean [Right Arm] 108 Blood Pressure Source [Right Arm] Automatic Cuff Blood Pressure Position [Right Arm] Sitting 02 Sat by Pulse Oximetry 97 Oxygen Delivery Method Room Air - Lab Data Lab results reviewed: Yes: I reviewed the patient's lab results. Lab Results 09/06/20 20:10: WBC 15.6 H, RBC 5.04, Hgb 14.9, Hct 44.7, MCV 88.7, MCH 29.6, MCHC 33.4, RDW 13.3, Plt Count 345, MPV 7.6, Neut % (Auto) 59.4, Lymph % (Auto) 34.0, Randolph % (Auto) 4.3, Eos % (Auto) 1.3, Baso % (Auto) 1.0, Neut # (Auto) 9.3 H, Lymph # (Auto) 5.3 H, Randolph # (Auto) 0.7, Eos # (Auto) 0.2, Baso # (Auto) 0.2, Total Counted 100, Neutrophils % (Manual) 62, Band Neutrophils % 2.0, Lymphocytes % (Manual) 31, Monocytes % (Manual) 2, Eosinophils % (Manual) 3, Platelet Estimate Normal, RBC Morphology Normal 09/06/20 20:10: Sodium 141, Potassium 3.6, Chloride 105, Carbon Dioxide 28, Anion Gap 11.6, BUN 8, Creatinine 0.50 L, Estimated Creat Clear 204, Estimated GFR 139, Est GFR ( Amer) 168, Glucose 120 H, Calcium 10.0, Troponin I < 0.01 Result diagrams: 09/06/20 20:10 09/06/20 20:10 Orders (Tests/Meds): ED MEDICATIONS Generic Name Dose Route Start Last Admin Trade Name Freq PRN Reason Stop Dose Admin Nitroglycerin 0.4 mg 09/06/20 20:57 09/06/20 20:57 Nitroglycerin 0.4mg Sl Tablet SL 10/06/20 20:56 0.4 mg Q5MINP PRN Administration Chest Pain Discontinued Medications Generic Name Dose Route Start Last Admin Trade Name Freq PRN Reason Stop Dose Admin Iopamidol 70 ml 09/06/20 21:14 09/06/20 21:16 Iopamidol-370 (76%);100ml Bottle IV 09/06/20 21:15 70 ml ONCE ONE Administration Nitroglycerin 1 gm 09/06/20 20:41 09/06/20 20:44 Nitroglycerin 1 Gm Ointment TD 09/06/20 20:42 1 gm ONCE ONE Administration Sodium Chloride 40 ml 09/06/20 21:14 09/06/20 21:15 0.9 % Sodium Chloride 50 Ml Vial IV 09/06/20 21:15 40 ml ONCE ONE Administration Sodium Chloride 10 ml 09/06/20 21:14 09/06/20 21:15 Sodium Chloride 0.9% 10ml Syr (Rad Only) IV 09/06/20 21:15 10 ml ONCE ONE Administration ORDERS Category Date Time Status CT angio chest Stat Cat Scan 09/06/20 20:41 Taken XR chest portable Stat Exams 09/06/20 20:14 Taken Full Resp Panel w/COVID ([facility]) Routine Lab 09/06/20 21:30 Received Troponin I Q3H Lab 09/06/20 23:15 Ordered Troponin I Q3H Lab 09/06/20 23:45 Ordered Troponin I Q3H Lab 09/07/20 02:15 Ordered Troponin I Q3H Lab 09/07/20 02:45 Ordered - Radiology Data #1 Image(s): Chest Image Reviewed: Yes I reviewed the patient's radiology image Preliminary Findings: Normal/NAD - CT Data CT Scan: Chest Time Received: 22:[address] Reviewed: Yes: I have viewed the radiologist's interpretation Preliminary Findings: Normal/NAD - ECG Data Tracing
[2020-09-06 21:34] LABS: Adenovirus,PCR Not Detected (NotDetected); Bordetella Pertussis Not Detected (NotDetected); Chlamydophila Pneumoniae, PCR Not Detected (NotDetected); Coronavirus 19, PCR Not Detected (NotDetected); Coronavirus 229E Not Detected (NotDetected); Coronavirus NL63 Not Detected (NotDetected); Coronavirus OC43 Not Detected (NotDetected); Coronovirus HKU1,PCR Not Detected (NotDetected); Human Metapneumovirus Not Detected (NotDetected); Influenza A, PCR Not Detected (NotDetected); Influenza AH1, 2009 Not Detected (NotDetected); Influenza AH1, PCR Not Detected (NotDetected); Influenza AH3,PCR Not Detected (NotDetected); Influenza B, PCR Not Detected (NotDetected); Mycoplasma Pneumoniae, PCR Not Detected (NotDetected); Parainfluenza 1, PCR Not Detected (NotDetected); Parainfluenza 2, PCR Not Detected (NotDetected); Parainfluenza 3, PCR Not Detected (NotDetected); Parainfluenza 4, PCR Not Detected (NotDetected); Respiratory Syncytial Virus Not Detected (NotDetected); Rhinovirus/Enterovirus Not Detected (NotDetected)
[2020-09-06 22:00] VITALS: BP 157/81; PULSE 85; RESP 18; TEMP 36.7; O2SAT 95; BMI 40.3
[2020-09-06 22:37] VITALS: BP 133/74; PULSE 72; RESP 17; TEMP 36.7; O2SAT 98
--- NOTE | 2020-09-06 22:44 | PC.NURSE ---
patient up to floor via wheelchair.
[2020-09-07] VITALS: PULSE 80
[2020-09-07 00:50] LABS: Troponin I < 0.01 ng/ml (0.00-0.034)
--- NOTE | 2020-09-07 03:26 | PC.NURSE ---
A&OX4. PT UP IN THE ROOM INDEPENDENTLY. PT HAS HAD NO C/O CHEST PAIN, SOB/NA/VO T/O SHIFT THUS FAR. PT HAS BEEN SLEEPING MAJORITY OF SHIFT. PT DID SHOWER, HAD SNACK BEFORE MIDNIGHT AND HAS TOLERATED NPO DIET WELL. PT NSR ON TELE. NO C/O THUS FAR, VSS WILL CONTINUE TO MONITOR.
[2020-09-07 03:28] LABS: Troponin I 0.02 ng/ml (0.00-0.034)
[2020-09-07 03:54] VITALS: BP 130/60; PULSE 82; RESP 19; TEMP 36.7; O2SAT 96
[2020-09-07 04:00] VITALS: PULSE 80
[2020-09-07 04:49] VITALS: BMI 40.4
--- NOTE | 2020-09-07 07:15 | HMH.PHAVTE ---
[facility] Pharmacy VTE Monitoring - Patient Demographics Admission date: 09/06/20 Report Date: 09/07/20 Time: 07:15 Allergies/Adverse Reactions: Patient Allergies lamotrigine [From Lamictal] Allergy (Intermediate, Verified 06/26/20 13:42) I-RASH codeine Adverse Reaction (Mild, Verified 06/26/20 13:42) NA-NAUSEA Height: 1.7 m Weight: 116.8 kg Patient Problems: Current Active Problems Chest pain (Acute) Tobacco abuse (Acute) Hypertension (Acute) Obesity (BMI 30.0-34.9) (Chronic) - VTE Risk Labs: VTE Related Lab Results Hgb 14.9 g/dL (12.2-16.2) 09/06/20 20:10 Hct 44.7 % (37.0-47.0) 09/06/20 20:10 Plt Count 345 K/mm3 (142-424) 09/06/20 20:10 BUN 8 mg/dl (7-17) 09/06/20 20:10 Creatinine 0.50 mg/dl (0.52-1.04) L 09/06/20 20:10 Estimated Creat Clear 204 mL/min (50-200) 09/06/20 20:10 - Prophylaxis VTE Prophylaxis Ordered?: Yes Types of VTE Prophylaxis: TEDS Knee High Location of Applied Device: Bilateral Lower Extremeties
[2020-09-07 07:28] LABS: Chloride 108 mmol/L (98-107)
[2020-09-07 07:29] LABS: Potassium 4.3 mmoL/L (3.5-5.1); Sodium 139 mmol/L (136-145)
[2020-09-07 07:31] LABS: Anion Gap 11.3 mEq/L (5-15); Blood Urea Nitrogen 10 mg/dl (7-17); Carbon Dioxide 24 mmol/L (22.0-30.0); Creatinine Clearance Estimated 144 mL/min (50-200); Estimated Glomerular Filt Rate 139 ml/min (>60); GFR (African American) 168 ML/MIN (>60)
[2020-09-07 07:32] LABS: Calcium 9.2 mg/dl (8.4-10.2); Chol/HDL Ratio 5.8 (1-3.5); Cholesterol 207 mg/dl (140-200); Glucose 119 mg/dl (74-100); HDL Cholesterol 36 mg/dl (40-60); Magnesium 1.8 mg/dl (1.6-2.3); Triglycerides 139 mg/dl (30-150); VLDL Cholesterol 28 mg/dL (0-40)
[2020-09-07 07:34] LABS: Basophils # 0.1 K/mm3 (0-0.2); Basophils % 0.8 % (0.1-2.0); Eosinophils # 0.2 K/mm3 (0.0-0.4); Eosinophils % 1.7 % (0.1-12.0); Hematocrit 42.7 % (37.0-47.0); Hemoglobin 13.5 g/dL (12.2-16.2); Lymphocytes # 4.2 K/mm3 (0.7-4.5); Mean Corpuscular HGB Conc 31.6 g/dL (31.8-35.4); Mean Corpuscular Hemoglobin 28.6 pg (27.0-31.2); Mean Corpuscular Volume 90.4 fl (81-99); Mean Platelet Volume 7.6 fl (7.4-10.4); Monocytes # 0.5 K/mm3 (0.1-1.0); Neutrophils # 5.8 K/mm3 (1.8-7.8); Neutrophils % 53.5 % (37.0-80.0); Platelet Count 309 K/mm3 (142-424); Red Blood Count 4.72 M/mm3 (4.20-5.40); Red Cell Distribution Width 13.2 % (11.5-17.5); White Blood Count 10.8 K/mm3 (4.8-10.8)
--- NOTE | 2020-09-07 07:37 | HMH.PHAINT ---
MEDICATION RECONCILIATION COMPLETED USING EXTERNAL FILL HISTORY
[2020-09-07 07:39] VITALS: BP 147/73; PULSE 82; RESP 20; TEMP 36.8; O2SAT 97
[2020-09-07 07:43] LABS: Direct LDL Cholesterol 133.57 mg/dL (100-129)
[2020-09-07 08:00] VITALS: PULSE 70
--- NOTE | 2020-09-07 08:00 | CA_ITS ---
APPROVED REPORT EXAM: Comprehensive 2D, Doppler, and color-flow Echocardiogram Catheterization Laboratory Technician: Jessica Walker CRT Ht: 5 ft 6 in Wt: 185lbs BSA: 1.93 BP: 154/84 mmHg Indications: Obesity, Peripheral Edema, Hypertension/HDD, AYDE, GERD, smoker 2D Dimensions LVOT 1.91 cm (M/F) 1.5-2.5 LA Volume 38.30 mL LA Volume Index 19.80 mL/m2 (M/F) 16-34 M-Mode Dimensions RVDd 2.07 cm (0.9-2.6) LA Diam 3.78 cm (1.9-4.0) LVDd 4.26 cm (3.5-5.7) Ao Diam 2.95 cm (2.0-3.7) LVDs 2.25 cm (3.5-5.7) IVSd 1.31 cm (0.6-1.1) PWd 0.81 cm (0.6-1.1) EF (Teich) 79.00% FS 47.20% EDV (Teich) 81.30 mL TAPSE 2.56 (<1.7) ESV (Teich) 17.10 mL LV Diastology E Decel Time 150.00 (160-240 msec) E/A Ratio 1.16 MED E' 9.50 (< 7 cm/sec) MED A' 7.30 cm/s E'/MED E' Ratio 8.19 (>14) LAT E' 11.30 (<10 cm/sec) LAT A' 9.20 cm/s E/LAT E' Ratio 6.88 (>14) Aortic Valve AO Peak GR. 10.30 mmHg Mitral Valve MV E Max Matthew. 78.00 (40-130 cm/s) MV A Velocity 67.00 (40-130 cm/s) E/A Ratio 1.16 MV Decel. Time 150.00 (160-240 ms) MV PHT 44.00 ms Pulmonary Valve PV Peak Velocity 71.00 (50-150 cm/s) Tricuspid Valve TR P. Velocity 224.00 cm/s RAP Estimate 10.00 mmHg RVSP 30.10 mmHg Left Ventricle Left atrium is normal size, left ventricle is normal size, there is no concentric left ventricular hypertrophy, visually estimated ejection fraction 55% with no regional wall motion abnormality, diastolic parameters are within normal range. Right Ventricle Right atrium and right ventricle are normal size and contractility. Aortic Valve Aortic valve is grossly normal, there is no aortic stenosis or aortic insufficiency. Mitral Valve Mitral valve grossly normal, there is trace mitral regurgitation. Tricuspid Valve Tricuspid grossly normal, there is trace tricuspid regurgitation, tricuspid regurgitation jet velocity is inadequate for calculation of the right ventricular systolic pressure. Pulmonic Valve Pulmonic valve is poorly visualized. Great Vessels Aortic root is normal size. Pericardium No significant pericardial effusion noted. Conclusion 1. Normal left ventricular size, preserved left ventricular systolic function, visually estimated ejection fraction 55% with no regional wall motion abnormality, diastolic parameters are within normal range. 2. Trace mitral and tricuspid regurgitation. 3. No significant pericardial effusion noted. Electronically signed by : Sudeep Triana, 09/07/2020 10:48:03
--- NOTE | 2020-09-07 08:36 | HMH.CNCARD ---
History of Present Illness Consult date: 09/07/20 Requesting physician: Daniel Khalil Consult reason: chest pain Chief complaint: chest pain Additional Medical History:: 1. Hypertension 2. Tobacco use 3. Noncompliance with medication 4. Obesity 5. History of normal routine stress test in 2016 6. GERD 7. Anxiety/depression History of present illness: 39-year-old white female with history of hypertension presented to the emergency department for evaluation of substernal chest pain with radiation to the left arm associated with headache. Patient was noted to be hypertensive in the ER and was given nitroglycerin for the chest pain which improved the blood pressure and the chest discomfort. Nitroglycerin paste was placed and patient was admitted for observation overnight. Troponins have returned normal overnight and EKG is sinus rhythm with nonspecific ST-T abnormalities consistent with prior EKGs. No acute ST segment changes noted. Preliminary echocardiogram this morning shows normal ejection fraction with only mild valvular insufficiencies. Patient relates noncompliance with her blood pressure medicine over the last 2 years, increasing headaches with accompanying high blood pressure and has gained about 30 pounds in the last year. She has a diet that is high in salt intake and has had an increase in her stress over the last week which may be contributing to all of her symptoms. Cardiology consulted for evaluation recommendations. [facility] History Medical History: Reports:: Anxiety, Depression, Gastroesophageal Reflux Disease(GERD), Hypertension, Migraine Denies:: Atherosclerotic Heart Disease, Atrial Fibrillation, Cardiomyopathy, Congestive Heart Failure, Congenital Heart Disease, Coronary Artery Disease, Diabetes Mellitus Type 1, Diabetes Mellitus Type 2, Internal Pacemaker, Myocardial Infarction, Supraventricular Tachycardia, Valvular Heart Disease *Have you ever received a pneumonia vaccine?: No *Have you received a flu vaccine this season?: No Other Surgeries: Yes: Appendectomy, Cholecystectomy, Dilation and Curettage, Hysterectomy-Total, Other. No: Pacemaker Amputation: No Fractures: Yes (LEG) - *Social History Smoking Status: Current every day smoker Tobacco Type: cigarettes # Packs/Day (cigarettes): 1 #Yrs smoked (if former smoker): 22 Alcohol Intake: never Substance Use Type: denies use, methamphetamine, crack/cocaine, marijuana *Occupational Status:: unemployed *Travel in the last 8 weeks: None - Psychiatric History Pschychiatric History:: Reports:: Anxiety, Depression Family Hx:: Cancer, Heart Attack, Hypertension, Thyroid Disorder Meds Home Medications Medication Instructions Recorded Confirmed Type pantoprazole 40 mg tablet,delayed 40 mg PO DAILY #90 tab 12/11/19 09/06/20 Rx release meloxicam 7.5 mg tablet 7.5 mg PO DAILY 30 Days #30 tab 06/26/20 09/06/20 Rx aripiprazole 20 mg tablet 20 mg PO DAILY #30 tab 08/14/20 09/06/20 Rx escitalopram oxalate 20 mg tablet 20 mg PO DAILY 30 Days #30 tab 08/14/20 09/06/20 Rx hydroxyzine pamoate 25 mg capsule 25 mg PO TID PRN #90 cap 08/14/20 09/06/20 Rx Doxepin HCl [Sinequan 25mg capsule] 25 mg PO HS 09/06/20 09/07/20 History Loratadine [Allergy] 10 mg PO DAILY 09/07/20 09/07/20 History Allergies Allergy/AdvReac Type Severity Reaction Status Date / Time lamotrigine [From Lamictal] Allergy Intermediate I-RASH Verified 06/26/20 13:42 codeine AdvReac Mild NA-NAUSEA Verified 06/26/20 13:42 Exam Vital signs and Labs for Last 24 Hours: Temp Pulse Resp BP Pulse Ox 98.2 F 82 20 147/73 H 97 09/07/20 07:39 09/07/20 07:39 09/07/20 07:39 09/07/20 07:39 09/07/20 07:39 Laboratory Results - last 24 hr 09/06/20 20:10: WBC 15.6 H, RBC 5.04, Hgb 14.9, Hct 44.7, MCV 88.7, MCH 29.6, MCHC 33.4, RDW 13.3, Plt Count 345, MPV 7.6, Neut % (Auto) 59.4, Lymph % (Auto) 34.0, Petroleum % (Auto) 4.3, Eos % (Auto) 1.3, Baso % (Auto) 1.0, Neut # (Auto) 9.3 H, Lymph # (Auto)
--- NOTE | 2020-09-07 10:15 | HMH.HPDC ---
General - General Admission date:: 09/06/20 Discharge date: 09/07/20 *Admission Date: 09/06/20 *Chief complaint: chest pain *History of present illness: this patient presented to the ed with new onset of lt sided chest pain which was new and has several risk factors for heart disease- pt with relief with asa and ntg in the ed and was admitted for eval and treatment - [facility] History I have reviewed the patient's past medical history: Yes Medical History: Reports:: Anxiety, Depression, Gastroesophageal Reflux Disease(GERD), Hypertension, Migraine Denies:: Atherosclerotic Heart Disease, Atrial Fibrillation, Cardiomyopathy, Congestive Heart Failure, Congenital Heart Disease, Coronary Artery Disease, Diabetes Mellitus Type 1, Diabetes Mellitus Type 2, Internal Pacemaker, Myocardial Infarction, Supraventricular Tachycardia, Valvular Heart Disease *Have you ever received a pneumonia vaccine?: No *Have you received a flu vaccine this season?: No Other Surgeries: Yes: Appendectomy, Cholecystectomy, Dilation and Curettage, Hysterectomy-Total, Other. No: Pacemaker Amputation: No Fractures: Yes (LEG) - *Social History Smoking Status: Current every day smoker Tobacco Type: cigarettes # Packs/Day (cigarettes): 1 #Yrs smoked (if former smoker): 22 Alcohol Intake: never Substance Use Type: denies use, methamphetamine, crack/cocaine, marijuana *Occupational Status:: unemployed *Travel in the last 8 weeks: None - Psychiatric History Pschychiatric History:: Reports:: Anxiety, Depression Family Hx:: Cancer, Heart Attack, Hypertension, Thyroid Disorder Review of Systems - Review of Systems Review of systems:: pertinent systems reviewed and negative unless documented below - Constitutional Denies fever(s) - Eyes Denies blurry vision - ENT Denies sore throat - *Cardiovascular Reports chest pain, Reports chest pain at rest, Denies shortness of breath - *Respiratory Denies cough - *Gastrointestinal Denies abdominal pain - *Genitourinary Denies heavy periods - *Musculoskeletal Denies joint pain, Denies joint swelling - Integumentary/Breasts Denies lesions - *Neurologic Reports headache(s), Denies localized weakness - Psychiatric Denies confusion Exam Vital signs and Labs for Last 24 Hours: Temp Pulse Resp BP Pulse Ox 98.2 F 70 20 147/73 H 97 09/07/20 07:39 09/07/20 08:00 09/07/20 07:39 09/07/20 07:39 09/07/20 07:39 Laboratory Results - last 24 hr 09/06/20 20:10: WBC 15.6 H, RBC 5.04, Hgb 14.9, Hct 44.7, MCV 88.7, MCH 29.6, MCHC 33.4, RDW 13.3, Plt Count 345, MPV 7.6, Neut % (Auto) 59.4, Lymph % (Auto) 34.0, Dickenson % (Auto) 4.3, Eos % (Auto) 1.3, Baso % (Auto) 1.0, Neut # (Auto) 9.3 H, Lymph # (Auto) 5.3 H, Dickenson # (Auto) 0.7, Eos # (Auto) 0.2, Baso # (Auto) 0.2, Total Counted 100, Neutrophils % (Manual) 62, Band Neutrophils % 2.0, Lymphocytes % (Manual) 31, Monocytes % (Manual) 2, Eosinophils % (Manual) 3, Platelet Estimate Normal, RBC Morphology Normal 09/06/20 20:10: Sodium 141, Potassium 3.6, Chloride 105, Carbon Dioxide 28, Anion Gap 11.6, BUN 8, Creatinine 0.50 L, Estimated Creat Clear 204, Estimated GFR 139, Est GFR ( Amer) 168, Glucose 120 H, Calcium 10.0, Troponin I < 0.01 09/06/20 21:30: Chlamy pneumoniae PCR Not detected, Adenovirus (PCR) Not detected, B. pertussis DNA (PCR) Not detected, Coronavirus OC43 (PCR) Not detected, Coronavirus HKU1 (PCR) Not detected, Coronavirus 229E (PCR) Not detected, SARS-CoV-2 (PCR) Not detected, Coronavirus NL63 (PCR) Not detected, Human Metapneumovir PCR Not detected, Influenza A (H1) PCR Not detected, Influ A (H1N1/09) PCR Not detected, Influenza A (H3) PCR Not detected, Influenza Type A (PCR) Not detected, Influenza Type B (PCR) Not detected, M. pneumoniae (PCR) Not detected, Parainfluenza 1 (PCR) Not detected, Parainfluenza 2 (PCR) Not detected, Parainfluenza 3 (PCR) Not detected, Parainfluenza 4 (PCR) Not detected, RSV (PCR) Not detected, Entero/Rhino (PCR) Not
== END 2020-09-07 11:11 | disposition home or self-care (01) ==
LOC: ER 20:26 → 2ND 21:59
PROVIDERS: Admitting Provider Emergency Medicine; Emergency Provider Emergency Medicine; PCP Nurse Practitioner Family; Visit Provider Emergency Medicine
DX: R07.9 Chest pain, unspecified (principal); I10 Essential (primary) hypertension; Z79.899 Other long term (current) drug therapy; K21.9 Gastro-esophageal reflux disease without esophagitis; Z91.19 Patient's noncompliance with other medical treatment and regimen; G43.909 Migraine, unspecified, not intractable, without status migrainosus
CPT/HCPCS: 36415; 71045; 71275; 80048; 80061; 83735; 84484; 85007; 85025; 87581; 87633; 87798; 93005; 93306; 99282; G0378; Q9967

== ENCOUNTER 2020-09-26 18:58 | Emergency (ER) | payer MEDICAID, SELFPAY ==
[2020-09-26 19:10] VITALS: BP 124/82; PULSE 86; RESP 19; TEMP 36.8; O2SAT 98; BMI 40.8
[2020-09-26 19:15] VITALS: BP 124/82; PULSE 86; RESP 19; TEMP 36.8; O2SAT 98
--- NOTE | 2020-09-26 19:25 | HMH.EDUTC ---
[facility] [place] Disposition Clinical Impression: Low back pain with radiation Sciatica Qualifiers: Laterality: left Qualified Code(s): M54.32 - Sciatica, left side Disposition: Home, Self-Care Condition on Discharge: Good Instructions: DI for Low Back Pain Additional Instructions: Go home and rest. No heavy lifting. No twisting. Take the oral medications as directed. The muscle relaxer (robaxin) will make you drowsy, so don't drive or operate heavy machinery after taking it. Don't start the oral steroids (medrol dose pack) until tomorrow, since you had the shots in here today. Follow up with your regular doctor. GO TO THE ER FOR ANY WORSENING SYMPTOMS OR CONCERN, ESPECIALLY BOWEL OR BLADDER ISSUES, SADDLE AREA NUMBNESS, FEVER, ETC Prescriptions: methylPREDNISolone [Medrol] 4 mg PO DIRECTED 6 Days #21 tab.ds.pk Transmission Status: Received by [facility] methocarbamoL [Methocarbamol] 750 mg PO BIDP PRN #30 tab PRN Reason: Muscle Spasm Transmission Status: Received by [facility] Referrals: Gaetano Cai APRN [Primary Care Provider] - Forms: Work/School Release Time of Disposition: 19:50 Medical Decision Making - Medical Records Medical records reviewed: No: I reviewed the patient's medical records. - Jayden Inquiry Pt receiving controlled substance: No Vital Signs: 09/26/20 19:10 09/26/20 19:15 Temperature 98.2 F 98.2 F Temperature Source Oral Pulse Rate 86 Pulse Rate [Left] 86 Respiratory Rate 19 19 Blood Pressure 124/82 Blood Pressure [Right Arm] 124/82 Blood Pressure Mean [Right Arm] 96 02 Sat by Pulse Oximetry 98 Orders (Tests/Meds): ED MEDICATIONS Discontinued Medications Generic Name Dose Route Start Last Admin Trade Name Freq PRN Reason Stop Dose Admin Ketorolac Tromethamine 60 mg 09/26/20 19:31 09/26/20 19:50 Ketorolac 60mg/2ml Vial IM 09/26/20 19:32 60 mg ONCE ONE Administration Methylprednisolone Sodium Succinate 125 mg 09/26/20 19:31 09/26/20 19:52 Methylprednisolone Sod Succ 125mg Vial IM 09/26/20 19:32 125 mg ONCE ONE Administration [facility] [place] HPI - General Stated complaint: back pain, numbness L Leg Time Seen by Provider: 09/26/20 19:25 Mode of Arrival: Ambulatory Source of Information: Patient Limitations: No Limitations Description of Symptoms (Recalled from Triage Doc. by RN): Lower back that radiates into the left leg and causing numbness HEENT Symptoms (Recalled from RN notes): No Resp Symptoms (Recalled from RN notes): No Skin Symptoms (Recalled from RN notes): No MS Symptoms (Recalled from RN notes): Yes Functional Status (Recalled from RN notes): wnl - History of Present Illness Provider Complaint: She c/o low back pain that radiates down her left leg. She states that her symptoms have been slowly getting worse for the past week. She denies any recent falls or injuries. - Related Data Home Medications Medication Instructions Recorded Confirmed Loratadine [Allergy] 10 mg PO DAILY 09/07/20 09/17/20 Previous Rx's Medication Instructions Recorded aripiprazole 20 mg tablet 20 mg PO DAILY #30 tab 08/14/20 escitalopram oxalate 20 mg tablet 20 mg PO DAILY 30 Days #30 tab 08/14/20 hydroxyzine pamoate 25 mg capsule 25 mg PO TID PRN #90 cap 08/14/20 Amlodipine Besylate [Norvasc 5mg 5 mg PO DAILY #30 tab 09/07/20 tablet] Atorvastatin Calcium [Lipitor 40mg 40 mg PO HS #30 tab 09/07/20 Tablet*] Nicotine [Nicotine Patch 21 mg TD DAILY #30 patch 09/07/20 21mg/24hrs] Pantoprazole Sodium [Protonix 40mg 40 mg PO HS #30 tablet. 09/07/20 tablet] lisinopriL [Zestril 10mg Tab] 10 mg PO DAILY #30 tab 09/07/20 ondansetron 8 mg disintegrating 8 mg PO Q8H PRN #20 tab 09/17/20 tablet methocarbamoL [Methocarbamol] 750 mg PO BIDP PRN #30 tab 09/26/20 methylPREDNISolone [Medrol] 4 mg PO DIRECTED 6 Days #21 09/26/20 tab.ds.pk Allergies Allergy/AdvReac Type Severity Re
== END 2020-09-26 20:03 | disposition home or self-care (01) ==
PROVIDERS: Emergency Provider Nurse Practitioner Family; PCP Nurse Practitioner Family
DX: M54.42 Lumbago with sciatica, left side (principal); F41.8 Other specified anxiety disorders; K21.9 Gastro-esophageal reflux disease without esophagitis; I10 Essential (primary) hypertension; F17.210 Nicotine dependence, cigarettes, uncomplicated
CPT/HCPCS: 96372; 99202; G0463

== ENCOUNTER 2021-02-03 14:28 | Emergency (ER) | payer MEDICAID, SELFPAY ==
[2021-02-03 17:36] VITALS: BP 144/89; PULSE 91; RESP 18; TEMP 36.7; O2SAT 99; BMI 38.5
--- NOTE | 2021-02-03 17:55 | HMH.EDUTC ---
[facility] [place] Clinical Impression: Encounter for laboratory testing for COVID-19 virus Disposition: Home, Self-Care Condition on Discharge: Good Instructions: DI for COVID-19 (Suspected or Confirmed ), Preventing the Spread of Coronavirus Discharge Instructions Additional Instructions: *Monitor Temp, Over the counter Motrin or Tylenol as directed/as needed Tylenol every 4 hours and Motrin every 6 hours (as long as your family doctor has told you that you can take it) for fever or pain. and straight to ER if unable to lower temp less than 101.0 after medication given Follow up IMMEDIATELY for new or worsening symptoms or no Noticeable improvement over the next 48-72 hours. 911 for difficulty breathing or swallowing You were tested for today for COVID19 your test result should be back in the next 24-48 hours, You was given handout for instructions to [facility] to view your result if you are unable to log on you may call You was given a handout with instructions for Self Quarantine and Self isolation for while you wait on test results and what to do if they are positive If you are positive the Health Dept will be contacting you also Make sure to take your Vitamins Vit. C Vit D and Zinc if you can take them Referrals: Daniel Khalil MD [Primary Care Provider] - As needed Forms: Work/School Release Medical Decision Making - Jayden Inquiry Pt receiving controlled substance: No Jayden was queried for this patient: No Vital Signs: 02/03/21 17:36 Temperature 98.1 F Temperature Source Oral Pulse Rate [Right Brachial] 91 H Respiratory Rate 18 Blood Pressure [Right Arm] 144/89 H Blood Pressure Mean [Right Arm] 107 Blood Pressure Source [Right Arm] Automatic Cuff Blood Pressure Position [Right Arm] Sitting 02 Sat by Pulse Oximetry 99 Oxygen Delivery Method Room Air Orders (Tests/Meds): ORDERS Category Date Time Status Covid-19 Nasal PCR ([facility]) Routine Lab 02/03/21 17:36 Received [facility] [place] HPI - General Stated complaint: covid test Time Seen by Provider: 02/03/21 17:56 Mode of Arrival: Ambulatory Source of Information: Patient Description of Symptoms (Recalled from Triage Doc. by RN): covid kraig HEENT Symptoms (Recalled from RN notes): No Resp Symptoms (Recalled from RN notes): No Skin Symptoms (Recalled from RN notes): No MS Symptoms (Recalled from RN notes): No Functional Status (Recalled from RN notes): yes - History of Present Illness Provider Complaint: Patient states that daughter recently tested positive for COVID and she needed to come in and get tested States that she is not having any symptoms but has been around her - Related Data Home Medications Medication Instructions Recorded Confirmed escitalopram oxalate 20 mg tablet 20 mg PO DAILY tab 01/31/21 Previous Rx's Medication Instructions Recorded loratadine 10 mg tablet See Rx Instructions .ROUTE 10/22/20 .COMPLEX #90 tablet aripiprazole 20 mg tablet 20 mg PO DAILY #30 tab 01/07/21 atorvastatin 40 mg tablet See Rx Instructions .ROUTE 01/07/21 .COMPLEX #90 tab pantoprazole 40 mg tablet,delayed See Rx Instructions .ROUTE 01/07/21 release .COMPLEX #90 tablet losartan 50 mg-hydrochlorothiazide 1 tab PO DAILY #30 tab 01/31/21 12.5 mg tablet Allergies Allergy/AdvReac Type Severity Reaction Status Date / Time lamotrigine [From Lamictal] Allergy Intermediate I-RASH Verified 02/03/21 17:35 codeine AdvReac Mild NA-NAUSEA Verified 02/03/21 17:35 - Worker's Comp Is this a Worker's Comp case?: No Is this an [facility] Worker's Comp?: No Is this a [facility] Worker's Comp?: No H History - Hepatitis A Screen Drug use history?: No High risk sexual behaviors?: No History of sexually transmitted infection?: No Currently employed?: No Childcare worker?: No Do you have indoor plumbing?: Yes Do you have electricity?: Yes Attestation statement:: This patient has been screened for Hepatitis A risk factors.
[2021-02-03 18:11] VITALS: BP 144/89; PULSE 91; RESP 18; TEMP 36.7; O2SAT 99
== END 2021-02-03 18:11 | disposition home or self-care (01) ==
PROVIDERS: Emergency Provider Nurse Practitioner; PCP Emergency Medicine
DX: U07.1 COVID-19 (principal); K21.9 Gastro-esophageal reflux disease without esophagitis; G43.709 Chronic migraine without aura, not intractable, without status migrainosus; I10 Essential (primary) hypertension; F41.8 Other specified anxiety disorders; F17.210 Nicotine dependence, cigarettes, uncomplicated
CPT/HCPCS: 99202; C9803; G0463; U0003; U0005

== ENCOUNTER 2021-02-13 15:54 | Emergency (ER) | payer MEDICAID, SELFPAY ==
--- NOTE | 2021-02-13 16:00 | XR_ITS ---
PROCEDURE INFORMATION: Exam: XR Right Foot Exam date and time: 02/13/2021 4:00 PM Age: 40 years old Clinical indication: Injury or trauma; Fall; Blunt trauma; Toes; Patient HX: Patient fell walking up stairs. Right great toe bruised. ; Additional info: Tripped over dog TECHNIQUE: Imaging protocol: XR Right foot. Views: 3 or more views. COMPARISON: CR FTR3 FOOT-RT-3 VIEWS 09/16/2014 9:58 PM FINDINGS: Bones/joints: Acute intra-articular fracture base distal phalanx of the great toe with 2 mm offset. Soft tissues: Soft tissue swelling. IMPRESSION: Acute small intra-articular fracture base distal phalanx of the great toe with 2 mm offset.
[2021-02-13 16:08] VITALS: BP 126/86; PULSE 82; RESP 16; TEMP 36.6; O2SAT 98; BMI 40.7
--- NOTE | 2021-02-13 16:38 | HMH.EDUTC ---
[facility] [place] Disposition Clinical Impression: Fracture of left great toe Qualifiers: Encounter type: initial encounter Fracture type: closed Phalanx: distal Fracture alignment: nondisplaced Qualified Code(s): S92.425A - Nondisplaced fracture of distal phalanx of left great toe, initial encounter for closed fracture Disposition: Home, Self-Care Condition on Discharge: Good Instructions: DI for Toe Fracture, Toe Fracture, How to Use Crutches Additional Instructions: Rest the extremity, apply ice for 15 minutes as tolerated three or four times per day, Elevate the extremity as tolerated while you are resting. Take ibuprofen for pain. I sent in a prescription to your pharmacy. Follow up with Dr. Barnett (podiatry). I put in a referral but you need to call her office and schedule an appointment. Wear the hard shoe and use the crutches for ambulation until you are seen by Dr. Barnett. Follow her instructions from there. Follow up with your regular doctor. GO TO THE ER FOR ANY WORSENING SYMPTOMS Prescriptions: Ibuprofen [Ibuprofen 800mg Tablet] 800 mg PO Q8HP PRN #30 tab PRN Reason: Moderate Pain Transmission Status: Pending to [facility] Referrals: Daniel Khalil MD [Primary Care Provider] - Denisa Barnett DPM [Staff Physician] - Time of Disposition: 16:52 Medical Decision Making - Medical Records Medical records reviewed: No: I reviewed the patient's medical records. - Jayden Inquiry Pt receiving controlled substance: No Vital Signs: 02/13/21 16:08 Temperature 98 F Temperature Source Oral Pulse Rate [Radial] 82 Respiratory Rate 16 Blood Pressure [Right Arm] 126/86 Blood Pressure Mean [Right Arm] 99 Blood Pressure Position [Right Arm] Sitting 02 Sat by Pulse Oximetry 98 Oxygen Delivery Method Room Air - Radiology Data #1 Image(s): Foot/Toes Image Reviewed: Yes I reviewed the patient's radiology image, Yes I have reviewed radiologist's interpretation Preliminary Findings: Abnormal PROCEDURE INFORMATION: Exam: XR Right Foot Exam date and time: 02/13/2021 4:00 PM Age: 40 years old Clinical indication: Injury or trauma; Fall; Blunt trauma; Toes; Patient HX: Patient fell walking up stairs. Right great toe bruised. ; Additional info: Tripped over dog TECHNIQUE: Imaging protocol: XR Right foot. Views: 3 or more views. COMPARISON: CR FTR3 FOOT-RT-3 VIEWS 09/16/2014 9:58 PM FINDINGS: Bones/joints: Acute intra-articular fracture base distal phalanx of the great toe with 2 mm offset. Soft tissues: Soft tissue swelling. IMPRESSION: Acute small intra-articular fracture base distal phalanx of the great toe with 2 mm offset. [facility] [place] HPI - General Stated complaint: AO 02/12@home injuredR foot big toe Time Seen by Provider: 02/13/21 16:38 Mode of Arrival: Ambulatory Source of Information: Patient Limitations: No Limitations Description of Symptoms (Recalled from Triage Doc. by RN): to [facility] with c/o rt great toe pain states walking up stairs yesterday and jammed toe munira step HEENT Symptoms (Recalled from RN notes): No Resp Symptoms (Recalled from RN notes): No Skin Symptoms (Recalled from RN notes): No MS Symptoms (Recalled from RN notes): Yes Functional Status (Recalled from RN notes): na - History of Present Illness Provider Complaint: She states that she was walking up some steps last night when her dog tripped her. She stubbed her left great toe directly into the side of the steps as she fell forward. She denies any additional injury. Since this happened, she has had bruising and pain of her left great toe. - Related Data Home Medications Medication Instructions Recorded Confirmed escitalopram oxalate 20 mg tablet 20 mg PO DAILY tab 01/31/21 Previous Rx's Medication Instructions Recorded loratadine 10 mg tablet See Rx Instructions .ROUTE 10/22/20
[2021-02-13 17:01] VITALS: BP 132/65; PULSE 74; RESP 16; TEMP 36.6; O2SAT 98
== END 2021-02-13 17:03 | disposition home or self-care (01) ==
PROVIDERS: Emergency Provider Nurse Practitioner Family; PCP Emergency Medicine
DX: S92.425A Nondisplaced fracture of distal phalanx of left great toe, initial encounter for closed fracture (principal); W23.1XXA Caught, crushed, jammed, or pinched between stationary objects, initial encounter
CPT/HCPCS: 73630; 99202; G0463

== ENCOUNTER 2021-02-19 18:15 | Emergency (ER) | payer MEDICAID, SELFPAY ==
[2021-02-19 18:30] VITALS: BP 157/103; PULSE 91; RESP 16; TEMP 36.8; O2SAT 100; BMI 40.7
--- NOTE | 2021-02-19 19:07 | HMH.EDUTC ---
[facility] [place] Clinical Impression: UTI (urinary tract infection) Qualifiers: Urinary tract infection type: site unspecified Hematuria presence: with hematuria Qualified Code(s): N39.0 - Urinary tract infection, site not specified; R31.9 - Hematuria, unspecified Disposition: Home, Self-Care Condition on Discharge: Good Instructions: Urinary Tract Infection, DI for Urinary Tract Infection (UTI), Phenazopyridine Additional Instructions: Drink plenty of fluids. Take tylenol or ibuprofen for pain or fever. Take the medications as directed. Follow up with your regular doctor. GO TO THE ER FOR ANY WORSENING SYMPTOMS The pyridium will make your urine turn orange, this is an expected side effect. It will stain your clothes if it comes into contact with them. Prescriptions: Ciprofloxacin HCl [Cipro 500mg Tab] 500 mg PO BID 7 Days #14 tab Transmission Status: Pending to [facility] Phenazopyridine HCl [Pyridium 200mg Tablet] 200 pow PO TID #6 tab Transmission Status: Pending to [facility] Referrals: Daniel Khalil MD [Primary Care Provider] - Forms: Work/School Release Time of Disposition: 19:28 Medical Decision Making - Medical Records Medical records reviewed: No: I reviewed the patient's medical records. - Jayden Inquiry Pt receiving controlled substance: No Vital Signs: 02/19/21 18:30 Temperature 98.2 F Temperature Source Oral Pulse Rate [Apical] 91 H Respiratory Rate 16 Blood Pressure [Right Arm] 157/103 H Blood Pressure Mean [Right Arm] 121 Blood Pressure Source [Right Arm] Automatic Cuff Blood Pressure Position [Right Arm] Sitting 02 Sat by Pulse Oximetry 100 Oxygen Delivery Method Room Air - Lab Data Lab results reviewed: Yes: I reviewed the patient's lab results. Orders (Tests/Meds): ED MEDICATIONS Discontinued Medications Generic Name Dose Route Start Last Admin Trade Name Freq PRN Reason Stop Dose Admin Ceftriaxone Sodium 1 gm 02/19/21 19:11 02/19/21 19:23 Ceftriaxone 1gm Vial IM 02/19/21 19:12 1 gm ONCE ONE Administration Lidocaine HCl 0 ml 02/19/21 19:11 02/19/21 19:23 Lidocaine 1% 5ml Pf Vial IM 02/19/21 19:12 2.1 ml ONCE ONE Administration Ondansetron HCl 4 mg 02/19/21 19:12 02/19/21 19:23 Ondansetron 4mg Odt SL 02/19/21 19:13 4 mg ONCE ONE Administration Phenazopyridine HCl 200 mg 02/19/21 19:12 02/19/21 19:23 Phenazopyridine 200mg Tablet PO 02/19/21 19:13 200 mg ONCE ONE Administration ORDERS Category Date Time Status UA [Urinalysis and Microscopic] Stat Lab 02/19/21 19:02 Ordered Urine Culture Routine Micro 02/19/21 18:25 Received [facility] [place] HPI - General Stated complaint: Possible UTI Time Seen by Provider: 02/19/21 19:11 Mode of Arrival: Ambulatory Source of Information: Patient Limitations: No Limitations Description of Symptoms (Recalled from Triage Doc. by RN): bladder pain HEENT Symptoms (Recalled from RN notes): No Resp Symptoms (Recalled from RN notes): No Skin Symptoms (Recalled from RN notes): No MS Symptoms (Recalled from RN notes): No Functional Status (Recalled from RN notes): na - History of Present Illness Provider Complaint: She states that for the past 4 days she has had worsening burning and pressure when urinating. She has also had urinary frequency and urgency. She does get uti's occasionally and she thinks that is what she has going on right now. - Related Data Home Medications Medication Instructions Recorded Confirmed escitalopram oxalate 20 mg tablet 20 mg PO DAILY tab 01/31/21 Previous Rx's Medication Instructions Recorded loratadine 10 mg tablet See Rx Instructions .ROUTE 10/22/20 .COMPLEX #90 tablet aripiprazole 20 mg tablet 20 mg PO DAILY #30 tab 01/07/21 atorvastatin 40 mg tablet See Rx Instructions .ROUTE 01/07/21 .COMPLEX #90 tab pantoprazole 40 mg tablet,delayed See Rx Instructions .ROUTE 01/07
[2021-02-19 19:37] VITALS: BP 157/103; PULSE 91; RESP 16; TEMP 36.8; O2SAT 100
[2021-02-20 11:03] LABS: Apearance,Urine Clear (Clear); Bilirubin,Urine Negative (Negative); Blood, Urine Trace (Negative); Color,Urine Yellow (Yellow); Glucose,Urine (UA) Negative (Negative); Ketones,Urine Negative (Negative); PH,Urine 7.5 (5.0-8.5); Protein,Urine Negative (Negative); Specific Gravity, Urine 1.025 (1.005-1.030); UTC Leukocyte Esterase,Urine 1+ (Negative); UTC Nitrate,Urine Negative (Negative); Urobilinogen,Urine 0.2 EU/dl (0.2)
== END 2021-02-19 19:39 | disposition home or self-care (01) ==
PROVIDERS: Emergency Provider Nurse Practitioner Family; PCP Emergency Medicine
DX: N39.0 Urinary tract infection, site not specified (principal)
CPT/HCPCS: 81003; 87086; 87088; 87186; 99202; G0463

== ENCOUNTER → 2021-03-27 14:16 | Outpatient (CLI) | payer MEDICAID, SELFPAY | PROVIDERS: PCP Emergency Medicine; Visit Provider Internal Medicine Cardiovascular Disease | DX: R06.83 Snoring (principal); R40.0 Somnolence ==

== ENCOUNTER 2021-03-31 09:14 | Emergency (ER) | payer MEDICAID, SELFPAY ==
[2021-03-31 09:15] VITALS: BP 123/94; PULSE 104; RESP 22; TEMP 36.6; O2SAT 97; BMI 40.7
--- NOTE | 2021-03-31 09:42 | HMH.EDUTC ---
[facility] [place] Disposition Clinical Impression: Cough Disposition: Home, Self-Care Condition on Discharge: Good Instructions: Cough, Fluticasone Nasal [place] Additional Instructions: Make sure to take your Prescribed medications as they are prescribed Follow up with your Family Doctor if no improvement or any worsening of symptoms Return if needed Straight to ER if any life threatening symptoms If you are having issues with Acid Reflux this can cause you to have irritated throat and cough make sure that you are taking your medication Prescriptions: Benzonatate [Benzonatate 100mg cap] 100 mg PO TID PRN #30 cap PRN Reason: Cough Transmission Status: Pending to [facility] Fluticasone Propionate [Flonase 50mcg nasal spray 16gm] 1 spr NS DAILY #1 each Transmission Status: Pending to [facility] Referrals: Daniel Khalil MD [Primary Care Provider] - As needed Forms: Work/School Release Time of Disposition: 09:56 Medical Decision Making - Jayden Inquiry Pt receiving controlled substance: No Jayden was queried for this patient: No Vital Signs: 03/31/21 09:15 Temperature 97.9 F Temperature Source Oral Pulse Rate [Right Brachial] 104 H Respiratory Rate 22 Blood Pressure [Right Arm] 123/94 H Blood Pressure Mean [Right Arm] 103 Blood Pressure Source [Right Arm] Automatic Cuff Blood Pressure Position [Right Arm] Sitting 02 Sat by Pulse Oximetry 97 Oxygen Delivery Method Room Air - Lab Data Lab results reviewed: Yes: I reviewed the patient's lab results. Medical Decision Narrative: Patient states that cough is worse when she lays down States that she has not been taking her daily prescribed medications States that her schedule at work has been crazy and she has just not been able to take it for the last couple of weeks States that she plans to start her medication back shortly Patient educated that she is on several medications and one being for GERD could be the reason for the cough since cough is worse when she lays down and started after she stopped taking her medication Patient verbalized understanding Patient educated to follow up with PCP sherwin [facility] [place] HPI - General Stated complaint: dry cough Time Seen by Provider: 03/31/21 09:42 Mode of Arrival: Ambulatory Source of Information: Patient Limitations: No Limitations Description of Symptoms (Recalled from Triage Doc. by RN): PATIENT C/O DRY COUGH WITH SORE CHEST X 3 DAYS HEENT Symptoms (Recalled from RN notes): No Resp Symptoms (Recalled from RN notes): Yes Skin Symptoms (Recalled from RN notes): No MS Symptoms (Recalled from RN notes): No Functional Status (Recalled from RN notes): WNL - History of Present Illness Provider Complaint: Patient states that she has been having sore throat and dry cough for about 3-4 days State that she had COVID last month States that she hasnt been coughing anything up but felt sore in her throat and chest area from coughing so much - Related Data Previous Rx's Medication Instructions Recorded Benzonatate [Benzonatate 100mg 100 mg PO TID PRN #30 cap 03/31/21 cap] Fluticasone Propionate [Flonase 1 spr NS DAILY #1 each 03/31/21 50mcg nasal spray 16gm] Allergies Allergy/AdvReac Type Severity Reaction Status Date / Time lamotrigine [From Lamictal] Allergy Intermediate I-RASH Verified 02/25/21 13:30 codeine AdvReac Mild NA-NAUSEA Verified 02/25/21 13:30 - Worker's Comp Is this a Worker's Comp case?: No [facility] History - Hepatitis A Screen Drug use history?: No High risk sexual behaviors?: No History of sexually transmitted infection?: No Currently employed?: No Childcare worker?: No Do you have indoor plumbing?: Yes Do you have electricity?: Yes Attestation statement:: This patient has been screened for Hepatitis A risk factors. I have reviewed the patient's past medical history: Yes Medical History: Reports:: Anxiety, Depression, Gastroesophageal Reflux Disease(NETTA
[2021-03-31 09:51] LABS: UTC Strep Screen (Rapid) Negative (Negative)
[2021-03-31 10:03] VITALS: BP 123/94; PULSE 104; RESP 22; TEMP 36.6; O2SAT 97
== END 2021-03-31 10:06 | disposition home or self-care (01) ==
PROVIDERS: Emergency Provider Nurse Practitioner; PCP Emergency Medicine
DX: R07.9 Chest pain, unspecified (principal); R05.1 Acute cough; F41.8 Other specified anxiety disorders; K21.9 Gastro-esophageal reflux disease without esophagitis; I10 Essential (primary) hypertension; F17.210 Nicotine dependence, cigarettes, uncomplicated
CPT/HCPCS: 87880; 99202; G0463

== ENCOUNTER 2021-04-10 16:54 | Emergency (ER) | payer MEDICAID, SELFPAY ==
[2021-04-10 17:49] VITALS: BP 147/88; PULSE 93; RESP 20; TEMP 36.8; O2SAT 96; BMI 37.5
[2021-04-10 18:02] LABS: Adenovirus,PCR Not Detected (NotDetected); Bordetella Pertussis Not Detected (NotDetected); Chlamydophila Pneumoniae, PCR Not Detected (NotDetected); Coronavirus 19, PCR Not Detected (NotDetected); Coronavirus 229E Not Detected (NotDetected); Coronavirus NL63 Not Detected (NotDetected); Coronavirus OC43 Not Detected (NotDetected); Coronovirus HKU1,PCR Not Detected (NotDetected); Human Metapneumovirus Not Detected (NotDetected); Influenza A, PCR Not Detected (NotDetected); Influenza AH1, 2009 Not Detected (NotDetected); Influenza AH1, PCR Not Detected (NotDetected); Influenza AH3,PCR Not Detected (NotDetected); Influenza B, PCR Not Detected (NotDetected); Mycoplasma Pneumoniae, PCR Not Detected (NotDetected); Parainfluenza 1, PCR Not Detected (NotDetected); Parainfluenza 2, PCR Not Detected (NotDetected); Parainfluenza 3, PCR Not Detected (NotDetected); Parainfluenza 4, PCR Not Detected (NotDetected); Respiratory Syncytial Virus Not Detected (NotDetected); Rhinovirus/Enterovirus Not Detected (NotDetected)
--- NOTE | 2021-04-10 18:25 | HMH.EDUTC ---
[facility] [place] Disposition Clinical Impression: Strep throat, Bronchitis, RSV exposure Disposition: Home, Self-Care Condition on Discharge: Good Instructions: Strep Throat, DI for Strep Throat Additional Instructions: Drink plenty of fluids. Take tylenol or ibuprofen for pain or fever. Take the medications as directed. Follow up with your regular doctor. GO TO THE ER FOR ANY WORSENING SYMPTOMS Throw your tooth brush away and get a new one. Don't start the oral steroids until tomorrow, since you had the shot here today. Prescriptions: Albuterol Sulfate [Albuterol Sulfate Hfa] 2 puffs IH Q6HP PRN 30 Days #1 each PRN Reason: Shortness Of Breath Transmission Status: Received by [facility] Amoxicillin/Potassium Clav [Augmentin 875-125 Tablet] 1 tab PO Q12H 10 Days #20 tab Transmission Status: Received by [facility] methylPREDNISolone [Medrol] 4 mg PO DIRECTED 6 Days #21 packet Transmission Status: Received by [facility] Referrals: Daniel Khalil MD [Primary Care Provider] - Forms: Work/School Release Time of Disposition: 19:13 Medical Decision Making - Medical Records Medical records reviewed: No: I reviewed the patient's medical records. - Jayden Inquiry Pt receiving controlled substance: No Vital Signs: 04/10/21 17:49 Temperature 98.2 F Temperature Source Oral Pulse Rate [Left] 93 H Respiratory Rate 20 Blood Pressure [Right Arm] 147/88 H Blood Pressure Mean [Right Arm] 107 02 Sat by Pulse Oximetry 96 - Lab Data Lab results reviewed: Yes: I reviewed the patient's lab results. Lab Results 04/10/21 18:30: Strep Scn [facility] Positive A Orders (Tests/Meds): ED MEDICATIONS Discontinued Medications Generic Name Dose Route Start Last Admin Trade Name Freq PRN Reason Stop Dose Admin Ceftriaxone Sodium 1 gm 04/10/21 18:46 Ceftriaxone 1gm Vial IM 04/10/21 18:47 ONCE ONE Lidocaine HCl 0 ml 04/10/21 18:46 Lidocaine 1% 5ml Pf Vial IM 04/10/21 18:47 ONCE ONE Methylprednisolone Sodium Succinate 125 mg 04/10/21 18:46 Methylprednisolone Sod Succ 125mg Vial IM 04/10/21 18:47 ONCE ONE ORDERS Category Date Time Status Full Resp Panel w/COVID ([facility]) Routine Lab 04/10/21 17:56 Received [facility] [place] HPI - General Stated complaint: cough and congestion sob Time Seen by Provider: 04/10/21 18:25 Mode of Arrival: Ambulatory Source of Information: Patient Limitations: No Limitations Description of Symptoms (Recalled from Triage Doc. by RN): pt c/o cough, soa, and burning in her lungs with breathing. HEENT Symptoms (Recalled from RN notes): No Resp Symptoms (Recalled from RN notes): Yes (cough, soa and burning with breathing) Skin Symptoms (Recalled from RN notes): No MS Symptoms (Recalled from RN notes): No Functional Status (Recalled from RN notes): wnl - History of Present Illness Provider Complaint: She c/o cough, chest congestion, and feeling bad for the past 1 day. She has ran a fever up to 101. She denies any shortness of breath. - Related Data Previous Rx's Medication Instructions Recorded Benzonatate [Benzonatate 100mg 100 mg PO TID PRN #30 cap 03/31/21 cap] Fluticasone Propionate [Flonase 1 spr NS DAILY #1 each 03/31/21 50mcg nasal spray 16gm] Albuterol Sulfate [Albuterol 2 puffs IH Q6HP PRN 30 Days #1 each 04/10/21 Sulfate Hfa] Amoxicillin/Potassium Clav 1 tab PO Q12H 10 Days #20 tab 04/10/21 [Augmentin 875-125 Tablet] methylPREDNISolone [Medrol] 4 mg PO DIRECTED 6 Days #21 04/10/21 packet Allergies Allergy/AdvReac Type Severity Reaction Status Date / Time lamotrigine [From Lamictal] Allergy Intermediate I-RASH Verified 02/25/21 13:30 codeine AdvReac Mild NA-NAUSEA Verified 02/25/21 13:30 - Worker's Comp Is this a Worker's Comp case?: No [facility] History - Hepatitis A Screen Drug use history?: No High risk sexual behaviors?: No History of
[2021-04-10 18:36] LABS: UTC Strep Screen (Rapid) Positive (Negative)
[2021-04-10 19:27] VITALS: BP 147/88; PULSE 93; RESP 20; TEMP 36.8
== END 2021-04-10 19:28 | disposition home or self-care (01) ==
PROVIDERS: Emergency Provider Nurse Practitioner Family; PCP Emergency Medicine
DX: J02.0 Streptococcal pharyngitis (principal); J20.9 Acute bronchitis, unspecified; F41.8 Other specified anxiety disorders; K21.9 Gastro-esophageal reflux disease without esophagitis; I10 Essential (primary) hypertension; F17.210 Nicotine dependence, cigarettes, uncomplicated
CPT/HCPCS: 87581; 87632; 87798; 87880; 96372; 99202; C9803; G0463; U0003; U0005

== ENCOUNTER → 2021-05-23 09:57 | Outpatient (CLI) | payer MEDICAID, SELFPAY ==
[2021-05-23 10:52] LABS: Basophils # 0.2 K/mm3 (0-0.2); Basophils % 1.8 % (0.1-2.0); Eosinophils # 0.1 K/mm3 (0.0-0.4); Hematocrit 44.4 % (37.0-47.0); Hemoglobin 14.2 g/dL (12.2-16.2); Lymphocytes # 3.3 K/mm3 (0.7-4.5); Lymphocytes % 31.6 % (10-50); Mean Corpuscular Hemoglobin 28.9 pg (27.0-31.2); Mean Corpuscular Volume 90.2 fl (81-99); Mean Platelet Volume 8.1 fl (7.4-10.4); Monocytes # 0.4 K/mm3 (0.1-1.0); Monocytes % 4.3 % (1.7-9.3); Neutrophils # 6.4 K/mm3 (1.8-7.8); Neutrophils % 61.5 % (37.0-80.0); Platelet Count 363 K/mm3 (142-424); Red Blood Count 4.92 M/mm3 (4.20-5.40); Red Cell Distribution Width 13.8 % (11.5-17.5); White Blood Count 10.4 K/mm3 (4.8-10.8)
[2021-05-23 11:51] LABS: Chloride 105 mmol/L (98-107)
[2021-05-23 11:52] LABS: Potassium 4.4 mmoL/L (3.5-5.1); Sodium 139 mmol/L (136-145)
[2021-05-23 11:54] LABS: Alanine Aminotransferase 32 U/L (12-78); Anion Gap 10.4 mEq/L (5-15); Aspartate Amino Transferase 31 U/L (14-36); Bilirubin,Unconjugated 0.3 mg/dL (0.0-1.1); Blood Urea Nitrogen 7 mg/dl (7-17); Carbon Dioxide 28 mmol/L (22.0-30.0); Estimated Glomerular Filt Rate 112 ml/min (>60); GFR (African American) 135 ML/MIN (>60)
[2021-05-23 11:55] LABS: Albumin Level 4.1 g/dl (3.5-5.0); Alkaline Phosphatase 110 U/L (38-126); Bilirubin,Direct 0.3 mg/dl (0.0-0.4); Bilirubin,Indirect 0.3 mg/dL (0.0-0.9); Bilirubin,Total 0.6 mg/dl (0.2-1.3); Calcium 9.6 mg/dl (8.4-10.2); Cholesterol 189 mg/dl (140-200); Glucose 104 mg/dl (74-100); HDL Cholesterol 38 mg/dl (40-60); Total Protein,Serum 7.2 g/dl (6.3-8.2); Triglycerides 91 mg/dl (30-150); VLDL Cholesterol 18 mg/dL (0-40)
[2021-05-23 12:06] LABS: Direct LDL Cholesterol 124.68 mg/dL (100-129)
[2021-05-23 12:12] LABS: Free T4 (Free Thyroxine) 1.11 ng/dl (0.78-2.19)
[2021-05-23 12:25] LABS: Thyroid Stimulating Hormone 2.65 uIU/mL (0.465-4.68)
== END ==
PROVIDERS: PCP Emergency Medicine; Visit Provider Physician Assistant
DX: R00.2 Palpitations (principal); I10 Essential (primary) hypertension; E78.2 Mixed hyperlipidemia; Z72.0 Tobacco use
CPT/HCPCS: 36415; 80048; 80061; 80076; 84439; 84443; 85025; 93270

== ENCOUNTER → 2021-07-20 15:16 | Outpatient (CLI) | payer MEDICAID, SELFPAY | PROVIDERS: PCP Emergency Medicine; Visit Provider Nurse Practitioner Family | DX: Z20.822 Contact with and (suspected) exposure to COVID-19 (principal) | CPT/HCPCS: 87275; 87276; C9803; U0003; U0005 ==

== ENCOUNTER 2021-08-21 15:45 | Emergency (ER) | payer MEDICAID, SELFPAY ==
[2021-08-21 16:00] VITALS: BP 152/94; PULSE 89; RESP 19; TEMP 36.8; O2SAT 100; BMI 41.3
[2021-08-21 16:06] LABS: Apearance,Urine Clear (Clear); Bilirubin,Urine Negative (Negative); Blood, Urine Trace (Negative); Color,Urine Yellow (Yellow); Glucose,Urine (UA) Negative (Negative); Ketones,Urine Negative (Negative); PH,Urine 7.5 (5.0-8.5); Protein,Urine Negative (Negative); UTC Leukocyte Esterase,Urine Negative (Negative); UTC Nitrate,Urine Negative (Negative); Urobilinogen,Urine 4 EU/dl (0.2)
--- NOTE | 2021-08-21 16:35 | HMH.EDUTC ---
[facility] [place] Impression: Low back pain Qualifiers: Chronicity: unspecified Back pain laterality: midline Sciatica presence: with sciatica Sciatica laterality: sciatica of left side Qualified Code(s): M54.42 - Lumbago with sciatica, left side Disposition: Home, Self-Care Condition on Discharge: Good Instructions: DI for Chronic Pain -- Adult, DI for Low Back Pain, DI for Sciatica, DI for Back Pain With Sciatica Additional Instructions: *Ibuprofen reji 6 hours with meal as needed for pain/inflammation *Not additional anti-inflammatory like motrin, aleve, advil with the above amount of ibuprofen. You can still take Tylenol every 4 hours as needed if you need something else for pain *Ice 20 minutes every 2 hours for the first 48 hours after the initial injury followed by moist heat every 20 minutes 3-4 times a day to affected area *Muscle relaxer every 8 hours as needed for muscle spasms but remember, it WILL cause drowsiness You cannot take it and drive, operate machinery or care for small children. *Keep this area active, no movement leads to more stiffness, However take it easy and avoid heavy lifting pushing or pulling *Follow up with you family doctor if no improvement for further treatment Prescriptions: Cyclobenzaprine HCl [Flexeril 10mg tablet] 10 mg PO Q8HP PRN #12 tab PRN Reason: Muscle Spasm Transmission Status: Pending to [facility] Ibuprofen [Ibuprofen 800mg Tablet] 800 mg PO Q8HP PRN #20 tab PRN Reason: Moderate Pain Transmission Status: Pending to [facility] methylPREDNISolone [Medrol 4mg tab] 4 mg PO DIRECTED #21 tab Transmission Status: Pending to [facility] Referrals: Daniel Khalil MD [Primary Care Provider] - As needed Forms: Work/School Release Time of Disposition: 16:43 Medical Decision Making - Jayden Inquiry Pt receiving controlled substance: No Jayden was queried for this patient: No Vital Signs: 08/21/21 16:00 Temperature 98.3 F Temperature Source Oral Pulse Rate [Right Brachial] 89 Respiratory Rate 19 Blood Pressure [Right Arm] 152/94 H Blood Pressure Mean [Right Arm] 113 Blood Pressure Source [Right Arm] Automatic Cuff Blood Pressure Position [Right Arm] Sitting 02 Sat by Pulse Oximetry 100 Oxygen Delivery Method Room Air - Lab Data Lab results reviewed: Yes: I reviewed the patient's lab results. Lab Results 08/21/21 16:05: Urine Color Yellow, Urine Appearance Clear, Urine pH 7.5, Ur Specific Lynn 1.020, Urine Protein Negative, Urine Glucose (UA) Negative, Urine Ketones Negative, Urine Blood Trace, Urine Nitrate Negative, Urine Bilirubin Negative, Urine Urobilinogen 4, Ur Leukocyte Esterase Negative Orders (Tests/Meds): ORDERS Category Date Time Status Covid-19 Nasal PCR ([facility]) Routine Lab 08/21/21 16:20 Ordered [facility] [place] - General Stated complaint: back pain Time Seen by Provider: 08/21/21 16:35 Mode of Arrival: Ambulatory Source of Information: Patient Limitations: No Limitations Description of Symptoms (Recalled from Triage Doc. by RN): PATIENT C/O LOWER BACK PAIN, COUGH, AND HEADACHE X 2 WEEKS HEENT Symptoms (Recalled from RN notes): Yes Resp Symptoms (Recalled from RN notes): Yes Skin Symptoms (Recalled from RN notes): No MS Symptoms (Recalled from RN notes): Yes Functional Status (Recalled from RN notes): WNL - History of Present Illness Provider Complaint: Patient states that she has been having pain in her lower back for about 2 weeks States that pain in lower back area is going into her buttock and left upper leg States that she has been working alot lately and not sure if she may have over did it States that also she has had a cough and headache last couple of days and wanted to get checked because her daughter had flu last week denies loss of control of bowel and bladder - Related Data Home Medications Medication Instructions Recorded Confirmed losartan 50 mg
[2021-08-21 16:41] VITALS: BP 152/94; PULSE 89; RESP 19; TEMP 36.8; O2SAT 100
[2021-08-21 16:41] LABS: UTC Influenza A Antigen Negative (Negative); UTC Influenza B Antigen Negative (Negative)
== END 2021-08-21 16:53 | disposition home or self-care (01) ==
PROVIDERS: Emergency Provider Nurse Practitioner; PCP Emergency Medicine
DX: M54.16 Radiculopathy, lumbar region (principal); I10 Essential (primary) hypertension; K21.9 Gastro-esophageal reflux disease without esophagitis; G43.909 Migraine, unspecified, not intractable, without status migrainosus; E66.9 Obesity, unspecified; F32.A Depression, unspecified; F41.9 Anxiety disorder, unspecified; F17.210 Nicotine dependence, cigarettes, uncomplicated; Z79.51 Long term (current) use of inhaled steroids; Z88.5 Allergy status to narcotic agent; Z88.8 Allergy status to other drugs, medicaments and biological substances; Z68.30 Body mass index [BMI] 30.0-30.9, adult; Z82.49 Family history of ischemic heart disease and other diseases of the circulatory system; Z80.9 Family history of malignant neoplasm, unspecified; Z83.49 Family history of other endocrine, nutritional and metabolic diseases
CPT/HCPCS: 81003; 87804; 99213; G0463

== ENCOUNTER 2021-08-25 11:34 | Emergency (ER) | payer MEDICAID, SELFPAY ==
[2021-08-25 12:32] VITALS: BP 152/102; PULSE 81; RESP 19; TEMP 36.9; O2SAT 97; BMI 40.1
--- NOTE | 2021-08-25 12:48 | HMH.EDUTC ---
[facility] [place]ression: Influenza A Disposition: Home, Self-Care Condition on Discharge: Good Instructions: Influenza, DI for Influenza -- Adult Additional Instructions: Drink plenty of fluids. Take tylenol or ibuprofen for pain or fever. Take the medications as directed. Follow up with your regular doctor. GO TO THE ER FOR ANY WORSENING SYMPTOMS The cough medication (promethazine dm) will make you drowsy, so don't drive or operate heavy machinery after taking it. Prescriptions: Promethazine/Dextromethorphan [Promethazine-Dm Syrup] 5 ml PO Q6HP PRN #240 ml PRN Reason: Cough Transmission Status: Pending to [facility] Ondansetron [Zofran 4mg ODT] 4 mg PO Q8HP PRN #20 tab PRN Reason: Nausea Transmission Status: Pending to [facility] Oseltamivir Phosphate [Tamiflu 75mg Capsule] 75 mg PO BID #10 cap Transmission Status: Pending to [facility] Azithromycin [Z-Gold 250mg Tab*] 250 mg PO UD DOSE PK #6 tab Transmission Status: Pending to [facility] Referrals: Gaetano Cai APRN [Primary Care Provider] - Forms: Work/School Release Time of Disposition: 13:20 Medical Decision Making - Medical Records Medical records reviewed: No: I reviewed the patient's medical records. - Jayden Inquiry Pt receiving controlled substance: No Vital Signs: 08/25/21 12:32 Temperature 98.5 F Temperature Source Oral Pulse Rate [Left] 81 Respiratory Rate 19 Blood Pressure [Right Arm] 152/102 H Blood Pressure Mean [Right Arm] 118 02 Sat by Pulse Oximetry 97 - Lab Data Lab results reviewed: Yes: I reviewed the patient's lab results. Lab Results 08/25/21 12:38: Influenza Type A Ag Positive A, Influenza Type B Ag Negative [facility] [place] - General Stated complaint: covid test Time Seen by Provider: 08/25/21 12:48 Mode of Arrival: Ambulatory Source of Information: Patient Limitations: No Limitations Description of Symptoms (Recalled from Triage Doc. by RN): pt c/o nasal drainage/congestion, sneezing, coughing, SMITH and body aches since yesterday. exposed to the flu. HEENT Symptoms (Recalled from RN notes): Yes Resp Symptoms (Recalled from RN notes): Yes Skin Symptoms (Recalled from RN notes): No MS Symptoms (Recalled from RN notes): No Functional Status (Recalled from RN notes): wnl - History of Present Illness Provider Complaint: She states that for the past 2 days she has had worsening chills, body aches, cough, sore throat and fever. - Related Data Home Medications Medication Instructions Recorded Confirmed losartan 50 mg-hydrochlorothiazide 1 tab PO DAILY tab 05/23/21 06/13/21 12.5 mg tablet pantoprazole 40 mg tablet,delayed 40 mg PO DAILY tab 05/23/21 06/13/21 release Previous Rx's Medication Instructions Recorded Albuterol Sulfate [Albuterol 2 puffs IH Q6HP PRN 30 Days #1 each 04/10/21 Sulfate Hfa] aripiprazole 5 mg tablet 5 mg PO QHS #30 tab 04/29/21 escitalopram oxalate 10 mg tablet 10 mg PO DAILY #30 tab 04/29/21 Cyclobenzaprine HCl [Flexeril 10mg 10 mg PO Q8HP PRN #12 tab 08/21/21 tablet] Ibuprofen [Ibuprofen 800mg 800 mg PO Q8HP PRN #20 tab 08/21/21 Tablet] methylPREDNISolone [Medrol 4mg 4 mg PO DIRECTED #21 tab 08/21/21 tab] Azithromycin [Z-Gold 250mg Tab*] 250 mg PO UD DOSE PK #6 tab 08/25/21 Ondansetron [Zofran 4mg ODT] 4 mg PO Q8HP PRN #20 tab 08/25/21 Oseltamivir Phosphate [Tamiflu 75 mg PO BID #10 cap 08/25/21 75mg Capsule] Promethazine/Dextromethorphan 5 ml PO Q6HP PRN #240 ml 08/25/21 [Promethazine-Dm Syrup] Allergies Allergy/AdvReac Type Severity Reaction Status Date / Time lamotrigine [From Lamictal] Allergy Intermediate I-RASH Verified 06/13/21 10:04 codeine AdvReac Mild NA-NAUSEA Verified 06/13/21 10:04 - Worker's Comp Is this a Worker's Comp case?: No [facility] History - Hepatitis A Screen Drug use history?: No High risk s
[2021-08-25 12:52] LABS: UTC Influenza A Antigen Positive (Negative)
[2021-08-25 12:53] LABS: UTC Influenza B Antigen Negative (Negative)
[2021-08-25 13:30] VITALS: BP 152/102; PULSE 81; RESP 19; TEMP 36.9
== END 2021-08-25 13:31 | disposition home or self-care (01) ==
PROVIDERS: Emergency Provider Nurse Practitioner Family; PCP Nurse Practitioner Family
DX: J10.1 Influenza due to other identified influenza virus with other respiratory manifestations (principal); R00.0 Tachycardia, unspecified; I35.9 Nonrheumatic aortic valve disorder, unspecified; K21.9 Gastro-esophageal reflux disease without esophagitis; G43.909 Migraine, unspecified, not intractable, without status migrainosus; F32.A Depression, unspecified; F41.9 Anxiety disorder, unspecified; F17.210 Nicotine dependence, cigarettes, uncomplicated; Z88.5 Allergy status to narcotic agent; Z88.8 Allergy status to other drugs, medicaments and biological substances; Z82.49 Family history of ischemic heart disease and other diseases of the circulatory system; Z83.49 Family history of other endocrine, nutritional and metabolic diseases
CPT/HCPCS: 87804; 99213; G0463

== ENCOUNTER 2021-10-27 16:08 | Emergency (ER) | payer MEDICAID, SELFPAY ==
--- NOTE | 2021-10-27 16:11 | XR_ITS ---
PROCEDURE INFORMATION: Exam: XR Left Ribs Exam date and time: 10/27/2021 4:08 PM Age: 40 years old Clinical indication: Injury or trauma; Fall; Rib area, left side; Blunt trauma; Injury date: 10/27/21; Additional info: Fall on left rib TECHNIQUE: Imaging protocol: XR Left ribs. Views: 2 views. COMPARISON: CR XR CHEST PORTABLE 09/06/2020 8:45 PM FINDINGS: Bones/joints: There are mild degenerative changes of the acromioclavicular joint. There is no evidence of acutely displaced skeletal fractures. There is no evidence of joint dislocation. No aggressive osseous lesions. Soft tissues: Visualized chest is unremarkable. There is no significant soft tissue swelling. IMPRESSION: No acute skeletal pathology.
[2021-10-27 16:20] VITALS: BP 165/101; PULSE 109; RESP 22; O2SAT 98; BMI 40.3
--- NOTE | 2021-10-27 16:36 | HMH.EDUTC ---
[facility] [place] Disposition Clinical Impression: Rib pain on left side Disposition: Home, Self-Care Condition on Discharge: Good Instructions: DI for Rib Contusion Additional Instructions: Over the counter Motrin and/or Tylenol as directed on package for pain Ice to the area 20 min every couple hours Over the counter Lidocaine patches may help with rib pain Return if needed Straight to ER if any life threatening symptoms Referrals: Gaetano Cai APRN [Primary Care Provider] - As needed Time of Disposition: 17:01 Medical Decision Making - Jayden Inquiry Pt receiving controlled substance: No Jayden was queried for this patient: No Vital Signs: 10/27/21 16:20 Pulse Rate [Right Brachial] 109 H Respiratory Rate 22 Blood Pressure [Right Arm] 165/101 H Blood Pressure Mean [Right Arm] 122 Blood Pressure Source [Right Arm] Automatic Cuff Blood Pressure Position [Right Arm] Sitting 02 Sat by Pulse Oximetry 98 Oxygen Delivery Method Room Air - Radiology Data #1 Image(s): Other (left rib) Image Reviewed: Yes I have reviewed radiologist's interpretation IMPRESSION: No acute skeletal pathology. [facility] [place] HPI - General Stated complaint: possible broken rib Time Seen by Provider: 10/27/21 16:36 Mode of Arrival: Ambulatory Source of Information: Patient Limitations: No Limitations Description of Symptoms (Recalled from Triage Doc. by RN): PATIENT C/O LEFT RIB PAIN. SHE STATES SHE WAS CHASING HER CAT WHEN SHE FELT HER RIB CRACK TODAY HEENT Symptoms (Recalled from RN notes): No Resp Symptoms (Recalled from RN notes): No Skin Symptoms (Recalled from RN notes): No MS Symptoms (Recalled from RN notes): Yes Functional Status (Recalled from RN notes): WNL - History of Present Illness Provider Complaint: Patient state that she was chasing her cat and it ran across the table over her lap top and she was trying to reach and catch everything when leaned over the arm of the chair and she felt a crack in her left ribs States that she has been having pain in left ribs ever since - Related Data Previous Rx's Medication Instructions Recorded fluconazole 100 mg tablet 100 mg PO DAILY #1 tab 08/28/21 Allergies Allergy/AdvReac Type Severity Reaction Status Date / Time lamotrigine [From Lamictal] Allergy Intermediate I-RASH Verified 08/28/21 15:41 codeine AdvReac Mild NA-NAUSEA Verified 08/28/21 15:41 - Worker's Comp Is this a Worker's Comp case?: No [facility] History - Hepatitis A Screen Attestation statement:: This patient has been screened for Hepatitis A risk factors. I have reviewed the patient's past medical history: Yes Medical History: Reports:: Anxiety, Depression, Gastroesophageal Reflux Disease(GERD), Hypertension, Migraine Denies:: Atherosclerotic Heart Disease, Atrial Fibrillation, Cardiomyopathy, Congestive Heart Failure, Congenital Heart Disease, Coronary Artery Disease, Diabetes Mellitus Type 1, Diabetes Mellitus Type 2, Internal Pacemaker, Myocardial Infarction, Supraventricular Tachycardia, Valvular Heart Disease Other Surgeries: Yes: Appendectomy, Cholecystectomy, Dilation and Curettage, Hysterectomy-Total, Other. No: Pacemaker Amputation: No Fractures: Yes (LEG) Comment: rt leg. Ovary drained - Social History Smoking Status: Current every day smoker Tobacco Type: cigarettes # Packs/Day (cigarettes): 1 #Yrs smoked (if former smoker): 22 Alcohol Intake: never Substance Use Type: denies use, methamphetamine, crack/cocaine, marijuana Occupational Status: other - Psychiatric History Pschychiatric History:: Reports:: Anxiety, Depression Family Hx:: Cancer, Heart Attack, Hypertension, Thyroid Disorder Comment: Maternal Grandmother- of [place] at 63. Mother-AFIB ROS Obtained: Yes All systems reviewed & no additional complaints, Yes Systems reviewed as appropriate & no additional complaints - Constitutional Constitutional: Reports system reviewed and no additional complaints, except as docu,
[2021-10-27 17:02] VITALS: BP 165/101; PULSE 109; RESP 22; TEMP 36.7; O2SAT 98
== END 2021-10-27 17:05 | disposition home or self-care (01) ==
PROVIDERS: Emergency Provider Nurse Practitioner; PCP Nurse Practitioner Family
DX: R07.81 Pleurodynia (principal); F17.210 Nicotine dependence, cigarettes, uncomplicated
CPT/HCPCS: 71100; 99212; G0463

== ENCOUNTER 2022-03-11 23:25 | Emergency (ER) | payer MEDICAID, SELFPAY ==
[2022-03-11 23:43] VITALS: BP 148/90; PULSE 73; RESP 18; TEMP 36.6; O2SAT 99
--- NOTE | 2022-03-11 23:44 | PC.NURSE ---
Patient came into the ER with a cough, runny nose and body aches. Patient stated during triage that she just wants a flu test , states that she doesn't want to be seen by the ER doctor but just wants swabbed. I advised of the patient concerns. Outpatient order for rapid flu with covid order given to patient.
== END 2022-03-11 23:44 | disposition left against medical advice (07) ==
LOC: ER 23:37
PROVIDERS: Emergency Provider Emergency Medicine; PCP Emergency Medicine
DX: Z53.21 Procedure and treatment not carried out due to patient leaving prior to being seen by health care provider (principal)

== ENCOUNTER → 2022-03-11 23:38 | Outpatient (CLI) | payer MEDICAID, SELFPAY ==
[2022-03-11 23:44] LABS: Coronavirus 19, PCR Not Detected (NotDetected); Influenza A, PCR Not Detected (NotDetected); Influenza B, PCR Not Detected (NotDetected)
== END ==
PROVIDERS: PCP Emergency Medicine; Visit Provider Emergency Medicine
DX: Z20.822 Contact with and (suspected) exposure to COVID-19 (principal); J06.9 Acute upper respiratory infection, unspecified
CPT/HCPCS: C9803; U0003; U0005

== ENCOUNTER 2022-06-10 08:36 | Emergency (ER) | payer MEDICAID, SELFPAY ==
--- NOTE | 2022-06-10 08:59 | EXP.UTC ---
Discharge Plan Disposition Patient Disposition: Home, Self-Care Condition: Good Prescriptions Prescriptions: New azithromycin [Zithromax] 250 mg tablet 250 mg PO UD DOSE PK Qty: 6 0RF Rx Instructions: Take two (2) tablets today, then one (1) tablet days #2 thru #5 benzonatate [benzonatate] 100 mg capsule 100 mg PO TIDP PRN (Reason: Cough) Qty: 30 0RF methylprednisolone 4 mg Tablets,Dose Pack 4 mg PO DIRECTED Qty: 21 0RF Referrals Follow up/Referrals: Daniel Khalil MD [Primary Care Provider] - See instructions Activity Restrictions/Add. Instructions Additional Instructions/Restrictions: Drink plenty of fluids. Take tylenol or ibuprofen for pain or fever. Take the medications as directed. Follow up with your regular doctor. GO TO THE ER FOR ANY WORSENING SYMPTOMS Clinical Impressions Clinical Impression: Viral syndrome, Pharyngitis Stand Alone Forms Stand Alone Forms: Work/School Release Instructions Patient Instructions: DI for Pharyngitis/Tonsillopharyngitis -- Adult, DI for Viral Syndrome Discharge ED Provider: Nate Yusuf [facility] General Stated complaint: Congestion drainage sore throat cough headache Time Seen by Provider: 06/10/22 08:59 History of Present Illness Provider Complaint: She states that for the past 2 days she has had sore throat, fever, chills, and malaise. Related Data Previous Rx's Medication Instructions Recorded azithromycin 250 mg tablet 250 mg PO UD DOSE PK #6 tabs 06/10/22 (Zithromax) benzonatate 100 mg capsule 100 mg PO TIDP PRN Cough #30 caps 06/10/22 methylprednisolone 4 mg tablets in 4 mg PO DIRECTED #21 tabs 06/10/22 a dose pack Allergies Allergy/AdvReac Type Severity Reaction Status Date / Time lamotrigine [From Lamictal] Allergy Intermediate I-RASH Verified 06/10/22 09:10 codeine AdvReac Mild NA-NAUSEA Verified 06/10/22 09:10 [facility] Disclaimer: The information contained in this section may have been updated after the patient was seen, as this information can be updated by other users. Medical History Chronic migraine Cough GERD (gastroesophageal reflux disease) Hyperlipidemia Hypertension Insomnia Obesity (BMI 30.0-34.9) Pain, foot, right, chronic Somnolence Tobacco abuse disorder Wheezing Family History Other Cancer Heart attack Hypertension Thyroid disorder Social History Smoking Status: Current every day smoker tobacco type: cigarettes packs per day: 1 second hand exposure: No alcohol intake: never substance use type: denies use, marijuana, crack/cocaine and methamphetamine current occupational status: other Travel in the last 8 weeks: [place] the [place] number of children: 2 ROS Obtained: Yes All systems reviewed & no additional complaints except as documented Constitutional Constitutional: Reports chills and Reports fever(s) Eyes Eyes: Denies eye discharge ENT Ears, Nose, Mouth, and Throat: Reports as per HPI Cardiovascular Cardiovascular: Denies chest pain Respiratory Respiratory: Denies chest congestion and Reports cough Gastrointestinal Gastrointestingal: Reports nausea; Denies abdominal pain, constipation, cramping, diarrhea or vomiting Musculoskeletal Musculoskeletal: Denies arthralgias Integumentary/Breasts Skin/Breast: Denies rash Neurologic Neurologic: Denies paresthesias Physical Exam General General appearance: alert and in no apparent distress Head Head exam: atraumatic, normocephalic and normal inspection Eye Eye exam: Present normal appearance, PERRL and EOMI ENT ENT exam: Present mucous membranes moist and normal external ear exam Expanded ENT Exam TM/Canal exam: Bilateral TM: erythema and bulging Nose exam: Absent sinus tenderness Mouth exam: Present normal external inspection;
[2022-06-10 09:00] VITALS: BP 149/96; PULSE 87; RESP 20; TEMP 36.6; O2SAT 98; BMI 38.7
[2022-06-10 09:13] LABS: UTC Strep Screen (Rapid) Negative (Negative)
[2022-06-10 09:50] VITALS: BP 149/96; PULSE 87; RESP 20; TEMP 36.6; O2SAT 98
== END 2022-06-10 09:50 | disposition home or self-care (01) ==
PROVIDERS: Emergency Provider Nurse Practitioner Family; PCP Emergency Medicine
DX: J02.9 Acute pharyngitis, unspecified (principal); B34.9 Viral infection, unspecified
CPT/HCPCS: 87880; 99212; 99213; C9803; G0463; U0003; U0005

== ENCOUNTER 2022-08-30 23:43 | Emergency (ER) | payer MEDICAID, SELFPAY ==
[2022-08-30 23:43] VITALS: BP 191/82; PULSE 92; RESP 16; TEMP 36.6; O2SAT 97; BMI 38.0
--- NOTE | 2022-08-30 23:44 | HMH.EDCP ---
Discharge Plan Disposition Patient Disposition: Home, Self-Care Prescriptions Prescriptions: No Action azithromycin [Zithromax] 250 mg tablet 250 mg PO UD DOSE PK Qty: 6 0RF Rx Instructions: Take two (2) tablets today, then one (1) tablet days #2 thru #5 benzonatate [benzonatate] 100 mg capsule 100 mg PO TIDP PRN (Reason: Cough) Qty: 30 0RF methylprednisolone 4 mg Tablets,Dose Pack 4 mg PO DIRECTED Qty: 21 0RF Activity Restrictions/Add. 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 Do this even if you feel well. Your work-up today in the emergency department did not reveal any life-threatening or dangerous causes for your chest pain. Your blood test for heart attack was undetectable. Your chest x-ray did not show pneumonia or dropped lung. Your risk for heart attack and or blood clot in the lungs is extremely low at this point. Nevertheless, it is important that you follow-up to have your heart checked out in more detail than I can do in the emergency department today. I believe that your symptoms are secondary to something called pleurisy. This usually resolves on its own. You can take Tylenol and/or Motrin for this. Please return to the emergency department immediately if you feel worse in any way. Clinical Impressions Clinical Impression: Chest pain, atypical, Acute pleurisy without pleural effusion Instructions Patient Instructions: DI for Atypical Chest Pain Discharge ED Provider: Diann Lisa Chest Pain HPI General Chief Complaint: Chest Pain Stated Complaint: Chest Pain Time Seen by Provider: 08/30/22 23:45 Mode of Arrival: Family Vehicle History of Present Illness HPI narrative: The patient presents to the emergency department complaining of pleuritic chest pain in the left lower chest since 2 PM. The pain has been constant. It is not exacerbated with exertion or movement. MD complaint: chest pain Pain location: left chest Quality: sharp SERINA Score for Non-Stemi Age of Patient: 30-39 years old Heart Rate: 70-89 bpm Systolic Blood Pressure: 160-199 mmHg Serum Creatinine: 0.40-0.79 mg/dl CHF [place] Class: I-No CHF Other Risk Factors: None Non-Stemi Risk Score: 31 Related Data Previous Rx's Medication Instructions Recorded azithromycin 250 mg tablet 250 mg PO UD DOSE PK #6 tabs 06/10/22 (Zithromax) benzonatate 100 mg capsule 100 mg PO TIDP PRN Cough #30 caps 06/10/22 methylprednisolone 4 mg tablets in 4 mg PO DIRECTED #21 tabs 06/10/22 a dose pack Allergies Allergy/AdvReac Type Severity Reaction Status Date / Time lamotrigine [From Lamictal] Allergy Intermediate I-RASH Verified 06/10/22 09:10 codeine AdvReac Mild NA-NAUSEA [facility]22 [facility] Disclaimer: The information contained in this section may have been updated after the patient was seen, as this information can be updated by other users. Medical History Chronic migraine Cough GERD (gastroesophageal reflux disease) Hyperlipidemia Hypertension Insomnia Obesity (BMI 30.0-34.9) Pain, foot, right, chronic Somnolence Tobacco abuse disorder Wheezing Family History Other Cancer Heart attack Hypertension Thyroid disorder Social History Smoking Status: Current every day smoker tobacco type: cigarettes packs per day: 1 second hand exposure: No alcohol intake: never substance use type: denies use, marijuana, crack/cocaine and methamphetamine current occupational status: other Travel in the last 8 weeks: Inside the [place] number of children: 2 ROS Obtained: Yes All systems reviewed & no additional complaints except as documented Physical Exam General General appearance: alert Head Head exam: atraumatic Eye Eye exam:
--- NOTE | 2022-08-30 23:45 | ECG_ITS ---
APPROVED REPORT Exam: Resting ECG HR:81 bpm ECG Measurements Heart Rate 81 AXES MO 139 P 5 QRSd 84 QRS 55 QT 372 T 53 QTc 410 Conclusion SINUS RHYTHM WITH OCCASIONAL SUPRAVENTRICULAR PREMATURE COMPLEXES UNCONFIRMED REPORT Electronically signed by : Parker Johnson MD 08/31/2022 09:04:56
--- NOTE | 2022-08-30 23:49 | XR_ITS ---
PROCEDURE INFORMATION: Exam: XR Chest Exam date and time: 08/30/2022 11:46 PM Age: 41 years old Clinical indication: Chest wall pain; Additional info: Cp TECHNIQUE: Imaging protocol: Radiologic exam of the chest. Views: 2 views. COMPARISON: CR XR CHEST PORTABLE 09/06/2020 8:45 PM FINDINGS: Lungs: The lungs appear clear. No focal areas of consolidation. Pleural spaces: No pleural effusions. Negative for pneumothorax. Heart/Mediastinum: Cardiac silhouette and pulmonary vasculature are within range of normal. Bones/joints: There is no evidence of acute fracture. IMPRESSION: Negative for an acute cardiopulmonary abnormality.
[2022-08-31 00:01] LABS: Basophils # 0.1 K/mm3 (0-0.2); Basophils % 0.8 % (0.1-2.0); Eosinophils # 0.3 K/mm3 (0.0-0.4); Eosinophils % 2.3 % (0.1-12.0); Hematocrit 43.5 % (37.0-47.0); Hemoglobin 14.6 g/dL (12.2-16.2); Lymphocytes # 4.9 K/mm3 (0.7-4.5); Lymphocytes % 36.1 % (10-50); Mean Corpuscular HGB Conc 33.5 g/dL (31.8-35.4); Mean Corpuscular Hemoglobin 29.5 pg (27.0-31.2); Mean Corpuscular Volume 88.3 fl (81-99); Mean Platelet Volume 8.2 fl (7.4-10.4); Monocytes # 0.6 K/mm3 (0.1-1.0); Monocytes % 4.3 % (1.7-9.3); Neutrophils # 7.7 K/mm3 (1.8-7.8); Neutrophils % 56.6 % (37.0-80.0); Platelet Count 298 K/mm3 (142-424); Red Blood Count 4.93 M/mm3 (4.20-5.40); Red Cell Distribution Width 13.3 % (11.5-17.5); White Blood Count 13.6 K/mm3 (4.8-10.8)
[2022-08-31 00:09] LABS: Anion Gap 10.8 mEq/L (5-15); Blood Urea Nitrogen 16 mg/dl (7-17); Calcium 9.1 mg/dl (8.4-10.2); Carbon Dioxide 26 mmol/L (22.0-30.0); Chloride 103 mmol/L (98-107); Creatinine Clearance Estimated 329 mL/min (50-200); Estimated Glomerular Filt Rate 178 ml/min (>60); GFR (African American) 215 ML/MIN (>60); Glucose 95 mg/dl (74-100); Potassium 4.8 mmoL/L (3.5-5.1); Sodium 135 mmol/L (136-145)
[2022-08-31 00:22] LABS: Troponin I < 0.01 ng/ml (0.00-0.034)
--- NOTE | 2022-08-31 00:31 | PC.NURSE ---
Dr. Lisa at
[2022-08-31 00:49] VITALS: BP 140/73; PULSE 76; RESP 19; TEMP 36.9; O2SAT 96
== END 2022-08-31 00:52 | disposition home or self-care (01) ==
PROVIDERS: Emergency Provider Emergency Medicine; PCP Emergency Medicine
DX: R07.89 Other chest pain (principal); R09.1 Pleurisy; F17.210 Nicotine dependence, cigarettes, uncomplicated
CPT/HCPCS: 71046; 80048; 84484; 85025; 93005; 96372; 96374; 99285

== ENCOUNTER 2022-10-15 13:00 | Emergency (ER) | payer MEDICAID, SELFPAY ==
[2022-10-15 13:01] VITALS: BP 143/83; PULSE 83; RESP 16; TEMP 36.9; O2SAT 99; BMI 42.7
--- NOTE | 2022-10-15 13:16 | EXP.UTC ---
Discharge Plan Disposition Patient Disposition: Home, Self-Care Condition: Good Prescriptions Prescriptions: New ketoconazole 2 % cream 1 applic topical DAILY 21 Days Qty: 60 0RF Rx Instructions: apply as directed for 3wks or until rash clears No Action losartan 25 mg tablet 25 mg PO DAILY Qty: 30 2RF Referrals Follow up/Referrals: Dot Pedroza MD [Referring] - See instructions (call for appointment) Daniel Khalil MD [Primary Care Provider] - See instructions Activity Restrictions/Add. Instructions Additional Instructions/Restrictions: Make sure to follow up in the next 72 hours to have your TB skin test read Use topical cream as prescribed Follow up with your Family Doctor or Dermatology for further evaluation if no improvement in rash Return if needed Straight to ER if any life threatening symptoms Clinical Impressions Clinical Impression: Skin problem Instructions Patient Instructions: Ketoconazole Topical Discharge ED Provider: Vivian Rivera [facility] [place], [place] HPI General Stated complaint: Red splotches on body Mode of Arrival: Ambulatory Source of Information: Patient Limitations: No Limitations Time Seen by Provider: 10/15/22 13:16 Description of Symptoms (Recalled from Triage Doc. by RN): Patient comlains of red splotches all over her body for 1 month now. HEENT Symptoms (Recalled from RN notes): No Resp Symptoms (Recalled from RN notes): No Skin Symptoms (Recalled from RN notes): Yes MS Symptoms (Recalled from RN notes): No Functional Status (Recalled from RN notes): wnl History of Present Illness Provider Complaint: Patient states that she has been having red dry spots on her upper legs front and back for about a month and on her buttock area States that area does not itchy or anything but hasnt got any better so today she came in to get it checked out states that also she is wanting a TB skin test due to recently was around sister and brother that was dx with latent TB Related Data Previous Rx's Medication Instructions Recorded losartan 25 mg tablet 25 mg PO DAILY #30 tabs 09/24/22 ketoconazole 2 % topical cream 1 applic topical DAILY 3 weeks #60 10/15/22 grams Allergies Allergy/AdvReac Type Severity Reaction Status Date / Time lamotrigine [From Lamictal] Allergy Intermediate I-RASH Verified 09/24/22 09:10 codeine AdvReac Mild NA-NAUSEA Verified 09/24/22 09:10 Worker's Comp Is this a Worker's Comp case?: No [facility] Disclaimer: The information contained in this section may have been updated after the patient was seen, as this information can be updated by other users. Medical History Chronic migraine Cough GERD (gastroesophageal reflux disease) Hyperlipidemia Hypertension Insomnia Obesity (BMI 30.0-34.9) Pain, foot, right, chronic Somnolence Tobacco abuse disorder Wheezing Family History Other Cancer Heart attack Hypertension Thyroid disorder Social History Smoking Status: Current every day smoker tobacco type: cigarettes packs per day: 1 second hand exposure: No alcohol intake: never substance use type: denies use, marijuana, crack/cocaine and methamphetamine current occupational status: other Travel in the last 8 weeks: Inside the [place] number of children: 2 ROS Obtained: Yes All systems reviewed & no additional complaints except as documented and Yes Systems reviewed as appropriate & no additional complaints except as documented ENT Ears, Nose, Mouth, and Throat: Reports system reviewed and no additional complaints, except as documented and Reports as per HPI Cardiovascular Cardiovascular: Reports system reviewed and no additional complaints, except as documented and Reports as per HPI Respiratory Respiratory: Reports system reviewed and no additional complaints, except as
[2022-10-15 13:44] VITALS: BP 143/83; PULSE 83; RESP 16; TEMP 36.9; O2SAT 99
== END 2022-10-15 13:46 | disposition home or self-care (01) ==
PROVIDERS: Emergency Provider Nurse Practitioner; PCP Emergency Medicine
DX: L98.9 Disorder of the skin and subcutaneous tissue, unspecified (principal); F17.210 Nicotine dependence, cigarettes, uncomplicated; K21.9 Gastro-esophageal reflux disease without esophagitis; E78.5 Hyperlipidemia, unspecified; I10 Essential (primary) hypertension; E66.9 Obesity, unspecified; Z11.1 Encounter for screening for respiratory tuberculosis
CPT/HCPCS: 86580; 99212; 99214; G0463

== ENCOUNTER → 2022-12-31 21:15 | Outpatient (CLI) | payer MEDICAID, SELFPAY | PROVIDERS: PCP Emergency Medicine; Visit Provider Nurse Practitioner Family | DX: J02.9 Acute pharyngitis, unspecified (principal) | CPT/HCPCS: 87070 ==

== ENCOUNTER 2023-01-15 06:34 | Emergency (ER) | payer MEDICAID, SELFPAY ==
[2023-01-15 06:36] VITALS: BP 166/129; PULSE 97; RESP 20; TEMP 36.6; O2SAT 99; BMI 42.6
[2023-01-15 07:05] VITALS: PULSE 74; O2SAT 99
--- NOTE | 2023-01-15 07:07 | PC.NURSE ---
DR NELSON AT BEDSIDE
--- NOTE | 2023-01-15 07:11 | XR_ITS ---
FINAL REPORT CLINICAL HISTORY: fell on L ankle, dorsal/lateral foot/ankle pain COMPARISON: 03/17/2018 FINDINGS: LEFT FOOT Three views of the left foot demonstrate no acute fracture or dislocation. The visualized joint spaces are normally aligned. There is a small plantar spur. The soft tissues are unremarkable. IMPRESSION: No acute bony abnormality. Reviewed, Interpreted and Dictated by Jerome Olivares MD Transcribed by Lisa Ramos Authenticated and [facility]
--- NOTE | 2023-01-15 07:11 | XR_ITS ---
FINAL REPORT CLINICAL HISTORY: fell on L ankle, dorsal/lateral foot/ankle pain COMPARISON: None FINDINGS: LEFT ANKLE Three views demonstrate no acute fracture or dislocation. The visualized joint spaces are normally aligned. Small plantar spur is noted. The soft tissues are unremarkable. IMPRESSION: No acute bony abnormality. Reviewed, Interpreted and Dictated by Jerome Olivares MD Transcribed by Lisa Ramos Authenticated and [facility]
--- NOTE | 2023-01-15 07:15 | HMH.EDGENADL ---
Discharge Plan Disposition Patient Disposition: Home, Self-Care Chief Complaint: Fall Prescriptions Prescriptions: No Action losartan 25 mg tablet 25 mg PO DAILY Qty: 30 2RF ketoconazole 2 % cream 1 applic topical DAILY 21 Days Qty: 60 0RF Rx Instructions: apply as directed for 3wks or until rash clears Referrals Follow up/Referrals: Daniel Khalil MD [Primary Care Provider] - See instructions Clinical Impressions Clinical Impression: Sprain of ankle, left Discharge ED Provider: Naseem Pathak General Adult HPI General Chief complaint: Fall Stated complaint: ao 01/15 06:15 injury left ankle Time Seen by Provider: 01/15/23 06:54 Mode of Arrival: Wheelchair Source of Information: Patient Limitations: No Limitations Description of Symptoms (Recalled from ER Triage Doc. by RN): pt stated she tripped over a gas pump line fell and c\o a twisted ankle pain 12/25 History of Present Illness HPI narrative: Is a 42-year-old female with history of hypertension, hyperlipidemia, type 2 diabetes, obesity, anxiety, bipolar 2 disorder presenting with left ankle pain. Patient states that just prior to arrival, she was at a gas station. She went to fill up her tank and tried to step over the gas hose, tripping on it. Stepped with her right foot first, tripped and landed on her left ankle. Had immediate pain and top of her left foot/lateral ankle so came to the ED for further evaluation. Denies numbness, weakness, tingling, any other trauma, or any other complaints at this time. Able to bear weight, but with significant difficulty/pain Related Data Previous Rx's Medication Instructions Recorded losartan 25 mg tablet 25 mg PO DAILY #30 tabs 09/24/22 ketoconazole 2 % topical cream 1 applic topical DAILY 3 weeks #60 10/15/22 grams Allergies Allergy/AdvReac Type Severity Reaction Status Date / Time lamotrigine [From Lamictal] Allergy Intermediate I-RASH Verified 12/31/22 15:53 codeine AdvReac Mild NA-NAUSEA Verified 12/31/22 15:53 [facility] Disclaimer: The information contained in this section may have been updated after the patient was seen, as this information can be updated by other users. Medical History (Updated 01/15/23 @ 09:35 by Naseem Pathak MD) Bronchitis Chest pain Chest pain, atypical Chronic migraine Contact dermatitis Cough Cough Encounter for laboratory testing for COVID-19 virus Fracture of left great toe Gastroenteritis GERD (gastroesophageal reflux disease) Headache Heel pain, bilateral Heel spur Hyperlipidemia Hypertension Influenza A Insomnia Low back pain Low back pain with radiation Obesity (BMI 30.0-34.9) Pain, foot, right, chronic Palpitations Patient left without being seen Pharyngitis Rib pain on left side RSV exposure Sciatica Skin problem Somnolence Strep throat Thyroid nodule Tobacco abuse disorder UTI (urinary tract infection) Viral syndrome Wheezing Family History Other Cancer Heart attack Hypertension Thyroid disorder Social History Smoking Status: Current every day smoker tobacco type: cigarettes packs per day: 1 second hand exposure: No alcohol intake: never substance use type: denies use, marijuana, crack/cocaine and methamphetamine current occupational status: other Travel in the last 8 weeks: Inside the [place] number of children: 2 ROS Obtained: Yes All systems reviewed & no additional complaints except as documented Physical Exam General General appearance: alert, in no apparent distress and other ( ) Head Head exam: atraumatic and normocephalic Eye Eye exam: Present normal appearance, PERRL and EOMI ENT ENT exam: Present mucous membranes moist Neck Neck exam: Present normal inspection, full ROM and trachea midline Respiratory Respiratory exam: Absent respiratory distress, wheezes, stri
--- NOTE | 2023-01-15 07:26 | PC.NURSE ---
PT TO XR
--- NOTE | 2023-01-15 07:38 | PC.NURSE ---
RETURNED FROM XR
--- NOTE | 2023-01-15 09:15 | PC.NURSE ---
PT UPDATED AT THIS TIME, NO NEEDS VOICED
[2023-01-15 09:44] VITALS: BP 136/69; PULSE 68; RESP 18; TEMP 36.7; O2SAT 100
== END 2023-01-15 09:46 | disposition home or self-care (01) ==
PROVIDERS: Emergency Provider Emergency Medicine; PCP Emergency Medicine
DX: S93.402A Sprain of unspecified ligament of left ankle, initial encounter (principal); K21.9 Gastro-esophageal reflux disease without esophagitis; W01.0XXA Fall on same level from slipping, tripping and stumbling without subsequent striking against object, initial encounter; I10 Essential (primary) hypertension; E04.1 Nontoxic single thyroid nodule; E78.5 Hyperlipidemia, unspecified; F17.210 Nicotine dependence, cigarettes, uncomplicated
CPT/HCPCS: 73610; 73630; 99284

== ENCOUNTER 2023-03-23 18:21 | Emergency (ER) | payer MEDICAID, SELFPAY ==
--- NOTE | 2023-03-23 18:25 | XR_ITS ---
PROCEDURE INFORMATION: Exam: XR Right Knee Exam date and time: 03/23/2023 6:24 PM Age: 42 years old Clinical indication: Injury or trauma; Fall; Blunt trauma; Knee; Right; Prior surgery; Surgery date: 6+ months; Surgery type: Tibfib broke in 2014, taiwo placed. ; Additional info: Pain from fall TECHNIQUE: Imaging protocol: Radiologic exam of the right knee. Views: 3 views. COMPARISON: CR XR FOOT RT MIN 3V 02/13/2021 4:04 PM FINDINGS: Bones/joints: No acute fracture or malalignment. Patellar enthesopathy. Partially visualized intramedullary taiwo fixation hardware within the proximal tibia without acute complication. Moderate joint effusion. Soft tissues: Normal. IMPRESSION: Moderate joint effusion. No acute osseous findings.
[2023-03-23 18:40] VITALS: BP 140/83; PULSE 83; RESP 19; TEMP 36.8; O2SAT 98; BMI 41.4
--- NOTE | 2023-03-23 18:54 | EXP.UTC ---
Discharge Plan Disposition Patient Disposition: Home, Self-Care Condition: Good Prescriptions Prescriptions: New ibuprofen 600 mg tablet 600 mg PO Q6HP PRN (Reason: Moderate Pain) Qty: 20 0RF No Action losartan 25 mg tablet 25 mg PO DAILY Qty: 30 2RF ketoconazole 2 % cream 1 applic topical DAILY 21 Days Qty: 60 0RF Rx Instructions: apply as directed for 3wks or until rash clears Referrals Follow up/Referrals: Manohar Carpio DO [Staff Physician] - See instructions (Call office for appointment) Daniel Khalil MD [Primary Care Provider] - See instructions Activity Restrictions/Add. Instructions Additional Instructions/Restrictions: *weight bearing as tolerated use crutches to get around *RICE, Rest the extremity, Ice 15-20 minutes 3-4 times daily, Compress- wear the eduar wrap as discussed as much as possible to help reduce swelling and pain, Elevate the extremity when at rest *Knee immobilizer is for support and help control swelling, use it except in the shower. Be sure that is not to tight but not to loose either *Elevate when resting? *Ibuprofen 600mg every 6-8 hours as needed for pain an inflammation. If need something more can take Tylenol in between doses of Ibuprofen to help Follow up with Orthopedics call office for appointment Clinical Impressions Clinical Impression: Effusion of knee joint Qualifiers: Laterality: right Qualified Code(s): M25.461 - Effusion, right knee Stand Alone Forms Stand Alone Forms: Work/School Release Instructions Patient Instructions: How To Perform RICE (Rest, Ice, Compress, Elevate), DI for Knee Effusion Discharge ED Provider[place] [facility] [place] General Stated complaint: pain in Rt knee, no accident Mode of Arrival: Ambulatory Source of Information: Patient Limitations: No Limitations Time Seen by Provider: 03/23/23 18:54 Description of Symptoms (Recalled from Triage Doc. by RN): PATIENT C/O RIGHT KNEE PAIN THAT STARTED AFTER SHE WAS RUNNING 3 DAYS AGO HEENT Symptoms (Recalled from RN notes): No Resp Symptoms (Recalled from RN notes): No Skin Symptoms (Recalled from RN notes): No MS Symptoms (Recalled from RN notes): Yes Functional Status (Recalled from RN notes): WNL History of Present Illness Provider Complaint: Patient states that her son was in an accident last week and she was running to the scene of the accident and not sure if she twisted her right knee or what but she has been having pain in her right knee ever since so tonight when her knee was still hurting she came in to get it checked Related Data Previous Rx's Medication Instructions Recorded losartan 25 mg tablet 25 mg PO DAILY #30 tabs 09/24/22 ketoconazole 2 % topical cream 1 applic topical DAILY 3 weeks #60 10/15/22 grams ibuprofen 600 mg tablet 600 mg PO Q6HP PRN Moderate Pain 03/23/23 #20 tabs Allergies Allergy/AdvReac Type Severity Reaction Status Date / Time lamotrigine [From Lamictal] Allergy Intermediate I-RASH Verified 12/31/22 15:53 codeine AdvReac Mild NA-NAUSEA Verified 12/31/22 15:53 Worker's Comp Is this a Worker's Comp case?: No [facility] Disclaimer: The information contained in this section may have been updated after the patient was seen, as this information can be updated by other users. Medical History (Updated 03/23/23 @ 19:04 by Vivian Rivera APRN) Bronchitis Chest pain Chest pain, atypical Chronic migraine Contact dermatitis Cough Cough Encounter for laboratory testing for COVID-19 virus Fracture of left great toe Gastroenteritis GERD (gastroesophageal reflux disease) Headache Heel pain, bilateral Heel spur Hyperlipidemia Hypertension Influenza A Insomnia Low back pain Low back pain with radiation Obesity (BMI 30.0-34.9) Pain, foot, right, chronic Palpitations Patient left without being seen Pharyngitis Rib pain on left side RSV exposure Sciatica Skin problem Somnolence Strep throat Thyroid nodule
[2023-03-23 19:25] VITALS: BP 140/83; PULSE 83; RESP 18; TEMP 36.8; O2SAT 98
== END 2023-03-23 19:25 | disposition home or self-care (01) ==
PROVIDERS: Emergency Provider Nurse Practitioner; PCP Emergency Medicine
DX: M25.461 Effusion, right knee (principal); F17.210 Nicotine dependence, cigarettes, uncomplicated; K21.9 Gastro-esophageal reflux disease without esophagitis; I10 Essential (primary) hypertension; E78.5 Hyperlipidemia, unspecified
CPT/HCPCS: 73562; 99212; 99214; G0463

== ENCOUNTER → 2023-04-16 07:54 | Outpatient (CLI) | payer MEDICAID, SELFPAY ==
--- NOTE | 2023-04-16 07:55 | CA_ITS ---
FINAL REPORT TECHNIQUE: Grayscale, color Doppler and duplex Doppler ultrasound of the kidneys, aorta and renal arteries was performed. Multiple velocities were measured. CLINICAL HISTORY: HTN,SMOKER COMPARISON: None FINDINGS: Aorta velocity: 107 cm/sec Right kidney: 12.4 cm. No evidence of hydronephrosis or mass. Right intrarenal RI: 0.63-0.69 Right renal artery velocity: 171 cm/sec. Right RAR (Renal artery-Aortic Ratio): 1.6 Left Kidney: 12.2 cm. No evidence of hydronephrosis or mass. Left intrarenal RI: 0.69-0.73 Left renal artery velocity: 156 cm/sec. Left RAR (Renal Artery-Aortic Ratio): 1.5 IMPRESSION: No evidence of significant renal artery stenosis. CT angiogram or postcontrast MR angiogram would be more sensitive for evaluation of possible renal artery stenosis. Reviewed, Interpreted and Dictated by Jerome Olivares MD Transcribed by Lisa Ramos Authenticated and [facility]
== END ==
PROVIDERS: PCP Emergency Medicine; Visit Provider Emergency Medicine
DX: I10 Essential (primary) hypertension (principal); Z72.0 Tobacco use
CPT/HCPCS: 93976

== ENCOUNTER → 2023-04-29 15:55 | Outpatient (CLI) | payer MEDICAID, SELFPAY ==
--- NOTE | 2023-04-29 15:55 | MR_ITS ---
FINAL REPORT CLINICAL HISTORY: right knee pain. pain inferior to patella. knee instability COMPARISON: None FINDINGS: Multi planar MR imaging was performed of the right knee. There is magnetic susceptibility artifact overlying the proximal tibia secondary to an intramedullary taiwo which somewhat limits overall image quality. The anterior and posterior cruciate ligaments are intact. The quadriceps and patellar tendons are intact. The medial and lateral menisci are intact without evidence of tear. The medial and lateral collateral ligaments appear intact. The medial and lateral retinacula appear intact. There is grade I chondromalacia involving the lateral facet of the the patella. No evidence of soft tissue inflammatory reaction. A small joint effusion is present. 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 A small joint effusion is present as well. Overall somewhat limited exam secondary to magnetic susceptibility artifact in the proximal tibia secondary to an IM taiwo as described. Reviewed, Interpreted and Dictated by Jerome Olivares MD Transcribed by Maritza De Dios Authenticated and [facility]
== END ==
PROVIDERS: PCP Internal Medicine; Visit Provider Orthopaedic Surgery
DX: M25.561 Pain in right knee (principal)
CPT/HCPCS: 73721

== ENCOUNTER 2023-08-24 13:44 | Outpatient (CLI) | payer MEDICAID, SELFPAY ==
--- NOTE | 2023-08-24 13:53 | XR_ITS ---
FINAL REPORT CLINICAL HISTORY: Left Foot pain COMPARISON: 01/15/2023 FINDINGS: LEFT ANKLE: Three views of the left ankle were obtained. There is no acute fracture or dislocation. The joint spaces and mortise are intact. There are small calcaneal spurs. There is no soft tissue abnormality. IMPRESSION: No acute bony abnormality. Small calcaneal spurs. Reviewed, Interpreted and Dictated by Patrice Palacios III, MD Transcribed by Lisa Ramos Authenticated and [facility]
--- NOTE | 2023-08-24 13:53 | XR_ITS ---
FINAL REPORT CLINICAL HISTORY: Left foot pain COMPARISON: 01/15/2023 FINDINGS: LEFT FOOT: Three views of the left foot were obtained. There is no acute fracture or dislocation. Small calcaneal spurs are noted. There is mild degenerative change of the midfoot. There is no soft tissue abnormality. IMPRESSION: Mild degenerative change without acute bony abnormality. Small calcaneal spurs. Reviewed, Interpreted and Dictated by Patrice Palacios III, MD Transcribed by Lisa Ramos Authenticated and [facility]
[2023-08-24 14:26] LABS: Basophils # 0.3 K/mm3 (0-0.2); Basophils % 3.4 % (0.1-2.0); Chloride 110 mmol/L (98-107); Eosinophils # 0.1 K/mm3 (0.0-0.4); Eosinophils % 1.3 % (0.1-12.0); Hematocrit 45.5 % (37.0-47.0); Hemoglobin 14.9 g/dL (12.2-16.2); Lymphocytes % 29.8 % (10-50); Mean Corpuscular HGB Conc 32.7 g/dL (31.8-35.4); Mean Corpuscular Hemoglobin 29.8 pg (27.0-31.2); Mean Corpuscular Volume 91.1 fl (81-99); Mean Platelet Volume 8.1 fl (7.4-10.4); Monocytes # 0.4 K/mm3 (0.1-1.0); Monocytes % 3.7 % (1.7-9.3); Neutrophils # 6.3 K/mm3 (1.8-7.8); Neutrophils % 61.8 % (37.0-80.0); Platelet Count 289 K/mm3 (142-424); Potassium 4.2 mmoL/L (3.5-5.1); Red Cell Distribution Width 13.4 % (11.5-17.5); Sodium 140 mmol/L (136-145); White Blood Count 10.1 K/mm3 (4.8-10.8)
[2023-08-24 14:29] LABS: Alanine Aminotransferase 32 U/L (12-78); Albumin/Globulin Ratio 1.3 (1.1-1.8); Alkaline Phosphatase 122 U/L (38-126); Anion Gap 8.2 mEq/L (5-15); Aspartate Amino Transferase 31 U/L (14-36); Bilirubin,Total 0.4 mg/dl (0.2-1.3); Blood Urea Nitrogen 12 mg/dl (7-17); Carbon Dioxide 26 mmol/L (22.0-30.0); Estimated Glomerular Filt Rate 137 ml/min (>60); GFR (African American) 165 ML/MIN (>60)
[2023-08-24 14:30] LABS: Calcium 10.2 mg/dl (8.4-10.2); Glucose 111 mg/dl (74-100)
[2023-08-24 15:16] LABS: Erythrocyte Sedimentation Rate 22 mm/hr (0-20)
[2023-08-24 16:40] LABS: Vitamin B12 198 pg/mL (239-931)
[2023-08-24 16:45] LABS: Hemoglobin A1C 5.7 % (4.0-6.0)
[2023-08-29 21:58] LABS: 1,25 Dihydroxy Vitamin D 50 pg/mL (.); 1,25-Dihydroxy, Vitamin D-2 <10 pg/mL (.); 1,25-Dihydroxy, Vitamin D-3 48 pg/mL (.)
== END 2023-08-24 23:59 | disposition home or self-care (01) ==
LOC: LAB 15:27
PROVIDERS: PCP Internal Medicine; Visit Provider Podiatrist
DX: M79.672 Pain in left foot; M72.2 Plantar fascial fibromatosis; R73.9 Hyperglycemia, unspecified; E53.8 Deficiency of other specified B group vitamins; E66.9 Obesity, unspecified; Z68.41 Body mass index [BMI] 40.0-44.9, adult
CPT/HCPCS: 36415; 73610; 73630; 80053; 82607; 82652; 83036; 85025; 85651

== ENCOUNTER 2023-09-03 12:10 | Outpatient (CLI) | payer MEDICAID, SELFPAY ==
[2023-09-03 19:52] LABS: Microalbumin/Creatinine Ratio 16.8
[2023-09-03 20:08] LABS: Creatinine,Urine Random 114 mg/dL (Not Estab.)
== END 2023-09-03 23:59 ==
LOC: LAB.DROPOF 09-04 12:11
PROVIDERS: PCP Internal Medicine; Visit Provider Internal Medicine
DX: R73.09 Other abnormal glucose (principal); R35.0 Frequency of micturition; N39.0 Urinary tract infection, site not specified
CPT/HCPCS: 82043; 82570; 87086

== ENCOUNTER 2023-09-07 18:28 | Outpatient (CLI) | payer MEDICAID, SELFPAY ==
[2023-09-07 18:56] LABS: Basophils # 0.1 K/mm3 (0-0.2); Eosinophils # 0.1 K/mm3 (0.0-0.4); Eosinophils % 1.1 % (0.1-12.0); Hematocrit 47.3 % (37.0-47.0); Hemoglobin 15.1 g/dL (12.2-16.2); Lymphocytes # 3.2 K/mm3 (0.7-4.5); Mean Corpuscular Hemoglobin 29.9 pg (27.0-31.2); Mean Corpuscular Volume 93.3 fl (81-99); Mean Platelet Volume 8.7 fl (7.4-10.4); Monocytes # 0.5 K/mm3 (0.1-1.0); Monocytes % 4.6 % (1.7-9.3); Neutrophils # 6.5 K/mm3 (1.8-7.8); Neutrophils % 62.3 % (37.0-80.0); Platelet Count 302 K/mm3 (142-424); Red Blood Count 5.07 M/mm3 (4.20-5.40); Red Cell Distribution Width 13.6 % (11.5-17.5); White Blood Count 10.4 K/mm3 (4.8-10.8)
[2023-09-07 20:10] LABS: Alanine Aminotransferase 29 U/L (12-78); Albumin/Globulin Ratio 1.2 (1.1-1.8); Alkaline Phosphatase 128 U/L (38-126); Anion Gap 10.6 mEq/L (5-15); Aspartate Amino Transferase 31 U/L (14-36); Bilirubin,Total 0.7 mg/dl (0.2-1.3); Blood Urea Nitrogen 16 mg/dl (7-17); Calcium 9.8 mg/dl (8.4-10.2); Carbon Dioxide 25 mmol/L (22.0-30.0); Chloride 109 mmol/L (98-107); Chol/HDL Ratio 5.3 (1-3.5); Cholesterol 197 mg/dl (140-200); Estimated Glomerular Filt Rate 137 ml/min (>60); GFR (African American) 165 ML/MIN (>60); Globulin 3.4 g/dL (1.3-3.2); Glucose 99 mg/dl (74-100); HDL Cholesterol 37 mg/dl (40-60); Hemoglobin A1C 5.7 % (4.0-6.0); Potassium 4.6 mmoL/L (3.5-5.1); Sodium 140 mmol/L (136-145); Total Protein,Serum 7.4 g/dl (6.3-8.2); Triglycerides 78 mg/dl (30-150); VLDL Cholesterol 16 mg/dL (0-40)
[2023-09-07 20:23] LABS: Direct LDL Cholesterol 123.93 mg/dL (100-129)
[2023-09-07 20:45] LABS: Thyroid Stimulating Hormone 1.72 uIU/mL (0.465-4.68)
[2023-09-07 20:53] LABS: 25-OH Vitamin D, Total < 12.8 ng/mL (30-100)
[2023-09-07 21:03] LABS: Vitamin B12 785 pg/mL (239-931)
[2023-09-09 06:41] LABS: HIV Screen 4th Generation wRfx Non Reactive (Non Reactive)
[2023-09-10 08:50] LABS: Hep A Ab, Total Negative
[2023-09-10 08:51] LABS: Hep B Core Ab, Total Negative; Hep B Surface Ab, Qual Non Reactive; Hepatitis B Surface Antigen Negative
[2023-09-10 08:52] LABS: HCV Genotype Not Indicated; Hepatitis C Antibody Non Reactive
[2023-09-10 08:53] LABS: Alpha 2-Macroglobulins, Qn 201; Fibrosis Score 0.09; Fibrosis Stage F0-NO FIBROSIS; Necroinflammat Activity Score 0.09
[2023-09-10 08:54] LABS: ALT (SGPT) P5P 26; Apolipoprotein A-1 141; Bilirubin, Total 0.3; GGT 41; Haptoglobin 223
== END 2023-09-07 23:59 | disposition home or self-care (01) ==
LOC: LAB.DROPOF 18:29
PROVIDERS: PCP Internal Medicine; Visit Provider Internal Medicine
DX: E55.9 Vitamin D deficiency, unspecified (principal); R53.83 Other fatigue; B34.9 Viral infection, unspecified; E53.8 Deficiency of other specified B group vitamins; R73.09 Other abnormal glucose; Z68.41 Body mass index [BMI] 40.0-44.9, adult
CPT/HCPCS: 80053; 80061; 81596; 82306; 82607; 83036; 84443; 85025; 86703; 86704; 86706; 86708; 87340; 87380; 87522; 87902; G0432

== ENCOUNTER 2023-12-27 16:45 | Emergency (ER) | payer MEDICAID, SELFPAY ==
[2023-12-27 16:50] VITALS: BP 150/71; PULSE 85; RESP 20; TEMP 36.7; O2SAT 98; BMI 41.9
[2023-12-27 17:04] LABS: Apearance,Urine Clear (Clear); Color,Urine Orange (Yellow)
[2023-12-27 17:05] LABS: Bilirubin,Urine Negative (Negative); Blood, Urine Negative (Negative); Glucose,Urine (UA) 100 (Negative); Ketones,Urine Negative (Negative); Protein,Urine Negative (Negative); UTC Leukocyte Esterase,Urine Negative (Negative); UTC Nitrate,Urine Positive (Negative); Urobilinogen,Urine 1 EU/dl (0.2)
--- NOTE | 2023-12-27 17:24 | EXP.UTC ---
Discharge Plan Disposition Patient Disposition: Home, Self-Care Condition: Good Prescriptions Prescriptions: New phenazopyridine 200 mg Tablet 200 mg PO TID 2 Days Qty: 6 0RF ciprofloxacin HCl [Cipro] 500 mg tablet 500 mg PO BID 7 Days Qty: 14 0RF ondansetron 4 mg Tablet,Disintegrating 4 mg PO Q8H PRN (Reason: Nausea) Qty: 12 0RF Referrals Follow up/Referrals: Jesse Sanchez DO [Primary Care Provider] - See instructions Activity Restrictions/Add. Instructions Additional Instructions/Restrictions: Drink plenty of fluids. Take tylenol or ibuprofen for pain or fever. Take the medications as directed. Follow up with your regular doctor. GO TO THE ER FOR ANY WORSENING SYMPTOMS The pyridium will make your urine turn orange, this is an expected side effect. It will stain your clothes if it comes into contact with them. We will culture the urine. That will tell what bacteria is causing your infection and which antibiotics will treat it best. Sometimes the first antibiotic we prescribe turns out to not work against different bacteria. So, make sure you follow up within 3 days if you are not getting better. Clinical Impressions Clinical Impression: UTI (urinary tract infection) Instructions Patient Instructions: Urine Culture, DI for Urinary Tract Infection (UTI), Phenazopyridine Print Language Print Language: Indonesian Discharge ED Provider: Nate Yusuf [facility] [place] General Stated complaint: abd pain Mode of Arrival: Ambulatory Source of Information: Patient Limitations: No Limitations Time Seen by Provider: 12/27/23 17:24 Description of Symptoms (Recalled from Triage Doc. by RN): PATIENT C/O LEFT LOWER ABDOMINAL AND SIDE PAIN THAT STARTED YESTERDAY MORNING HEENT Symptoms (Recalled from RN notes): No Resp Symptoms (Recalled from RN notes): No Skin Symptoms (Recalled from RN notes): No MS Symptoms (Recalled from RN notes): No Functional Status (Recalled from RN notes): WNL History of Present Illness Provider Complaint: She states that she has had left flank pain and left sided lower abdomen pain since yesterday. She is also having urinary frequency, but denies dysuria. Related Data Previous Rx's ?Medication ?Instructions ?Recorded ciprofloxacin HCl 500 mg tablet 500 mg PO BID 7 days #14 tabs 12/27/23 (Cipro) ondansetron 4 mg disintegrating 4 mg PO Q8H PRN Nausea #12 tabs 12/27/23 tablet phenazopyridine 200 mg tablet 200 mg PO TID 2 days #6 tabs 12/27/23 Allergies Allergy/AdvReac Type Severity Reaction Status Date / Time lamotrigine [From Lamictal] Allergy Intermediate I-RASH Verified 11/30/23 11:46 codeine AdvReac Mild NA-NAUSEA Verified 11/30/23 11:46 Worker's Comp Is this a Worker's Comp case?: No PFSH [facility] Disclaimer: The information contained in this section may have been updated after the patient was seen, as this information can be updated by other users. Medical History UTI (urinary tract infection) Will place this patient on Augmentin. She will return in about 3 weeks for further evaluation. Borderline personality disorder Bipolar 1 disorder Skin problem Palpitations Heel pain, bilateral Chest pain, atypical Pharyngitis Patient left without being seen Wheezing Cough Somnolence Insomnia Tobacco abuse disorder Chronic migraine Rib pain on left side Influenza A Low back pain RSV exposure Bronchitis Strep throat Cough Fracture of left great toe Encounter for laboratory testing for COVID-19 virus Sciatica Low back pain with radiation Thyroid nodule Hyperlipidemia Patient is to return for nurse visit for the labs that we will draw which include a lipid panel fasting. GERD (gastroesophageal reflux disease) Not a complaint today we will follow-up. Chest pain Contact dermatitis Viral syndrome Gastroenteritis Headache Hypertension I discussed this blood pressure issue with this patient. She is to use her blood pressure cuff record her blood pressures at least 3-4 times a week in the morning. She is bring these back with her to the clinic at follow-up. Additionally we will add chlorthalidone at low-dose 25 mg/day. She is to let me know if dizziness or lightheadedness increase. She does seem to have routinely elevated blood pressures greater than 140/70 on a regular basis. Patient is to continue her losartan. Heel spur Pain, foot, right, chronic Obesity (BMI 30.0-34.9) Family History Other Cancer Heart attack Hypertension Thyroid disorder Social History Smoking Status: Current every day smoker tobacco type: cigarettes packs per day: 1 second hand exposure: No alcohol intake: never substance use type: denies use current occupational status: employed Travel in the last 8 weeks: Inside the [place] number of children: 2 ROS Obtained: Yes All systems reviewed & no additional complaints except as documented Constitutional Constitutional: Reports system reviewed and no additional complaints, except as documented, Denies chills and Denies fever(s) Eyes Eyes: Denies eye discharge ENT Ears, Nose, Mouth, and Throat: Denies dysphagia, Denies sore throat and Denies throat swelling Cardiovascular Cardiovascular: Denies chest pain and Denies dyspnea Respiratory Respiratory: Denies chest congestion, Denies cough and Denies dyspnea Gastrointestinal Gastrointestingal: Denies abdominal pain, constipation, diarrhea, dysphagia, nausea or vomiting Genitourinary Female Genitourinary: Reports dysuria, Reports urinary frequency, Denies urinary incontinence, Reports urinary hesitancy and Reports urinary urgency Musculoskeletal Musculoskeletal: Denies arthralgias and Reports back pain Integumentary/Breasts Skin/Breast: Denies rash Neurologic Neurologic: Denies paresthesias Allergic/Immunologic Allergic/Immunologic: Denies throat swelling Physical Exam General General appearance: alert and in no apparent distress Head Head exam: atraumatic and normocephalic Eye Eye exam: Present normal appearance, PERRL and EOMI ENT ENT exam: Present normal exam, mucous membranes moist, TM's normal bilaterally and normal external ear exam Neck Neck exam: Present normal inspection, full ROM and trachea midline; Absent tenderness, meningismus or lymphadenopathy Chest Chest inspection: Present normal inspection and symmetric chest wall rise; Absent tenderness Respiratory Respiratory exam: Present normal lung sounds bilaterally; Absent respiratory distress, wheezes or stridor Cardiovascular Cardiovascular exam: Present regular rate, normal rhythm and normal heart sounds Abdominal Exam Abdominal exam: Present soft and normal bowel sounds; Absent distention, tenderness, guarding, rebound, rigidity, incision, psoas sign, obturator sign, heel tap sign, Jones's sign, Rovsing's sign or tenderness at McBurney's Point Extremities Exam Extremities exam: Present normal inspection, full ROM and normal capillary refill; Absent tenderness, edema, joint swelling, calf tenderness or cyanosis Back Exam Back exam: Present normal inspection and full ROM; Absent tenderness, CVA tenderness (R) or CVA tenderness (L) Neurological Exam Neurological exam: Present alert, oriented X3 and normal gait Psychiatric Psychiatric exam: Present normal affect and normal mood Skin Skin exam: Present warm, dry, intact and normal color Lymphatic Lymphatic Findings: no adenopathy Medical Decision Making Medical Records Medical records reviewed: No I reviewed the patient's medical records. Jayden Inquiry Pt receiving controlled substance: No Vital Signs: 12/27/23 16:50 Temperature 98.1 F Temperature Source Oral Pulse Rate [Left Brachial] 85 Respiratory Rate 20 Blood Pressure [Left Arm] 150/71 H Blood Pressure Mean [Left Arm] 97 Blood Pressure Source [Left Arm] Automatic Cuff Blood Pressure Position [Left Arm] Sitting 02 Sat by Pulse Oximetry 98 Oxygen Delivery Method Room Air Lab Data Lab results reviewed: Yes I reviewed the patient's lab results. Lab Results 12/27/23 17:04: Urine Color [place], Urine Appearance Clear, Urine pH 7.0, Ur Specific [place] 1.010, Urine Protein Negative, Urine Glucose (UA) 100, Urine Ketones Negative, Urine Blood Negative, Urine Nitrate Positive A, Urine Bilirubin Negative, Urine Urobilinogen 1, Ur Leukocyte Esterase Negative Orders (Tests/Meds): ORDERS Category Date Time Status Urine Culture Stat Micro 12/27/23 16:44 Received
[2023-12-27 17:30] VITALS: BP 150/71; PULSE 85; RESP 20; TEMP 36.7; O2SAT 98
== END 2023-12-27 17:33 | disposition home or self-care (01) ==
PROVIDERS: Emergency Provider Nurse Practitioner Family; PCP Internal Medicine
DX: N39.0 Urinary tract infection, site not specified (principal); R10.32 Left lower quadrant pain; R35.0 Frequency of micturition; B96.89 Other specified bacterial agents as the cause of diseases classified elsewhere
CPT/HCPCS: 81003; 87086; 99212; 99214; G0463

== ENCOUNTER 2024-09-19 16:20 | Emergency (ER) | payer SELFPAY ==
[2024-09-19 16:45] VITALS: BP 137/86; PULSE 84; RESP 17; TEMP 37; O2SAT 98; BMI 38.7
--- NOTE | 2024-09-19 17:23 | CT_ITS ---
PROCEDURE INFORMATION: Exam: CT Abdomen And Pelvis Without Contrast Exam date and time: 09/19/2024 6:23 PM Age: 43 years old Clinical indication: Abdominal pain; Additional info: Left flank TECHNIQUE: Imaging protocol: Computed tomography of the abdomen and pelvis without contrast. Radiation optimization: All CT scans at this facility use at least one of these dose optimization techniques: automated exposure control; mA and/or kV adjustment per patient size (includes targeted exams where dose is matched to clinical indication); or iterative reconstruction. COMPARISON: US [facility] RENAL ARTERY DUPLEX 04/16/2023 8:08 AM FINDINGS: Lungs: Bilateral dependent pulmonary atelectasis is demonstrated within the lungs. Liver: Unremarkable. No mass. Gallbladder and biliary ducts: The gallbladder has been surgically removed. Surgical clips identified in the gallbladder fossa. No evidence for biliary dilatation. Pancreas: Unremarkable. Spleen: Unremarkable. No splenomegaly. Adrenal glands: Normal. No mass. Kidneys and ureters: Unremarkable. No hydronephrosis or calculi. Stomach and bowel: Colonic diverticulosis is noted, with greatest involvement of the sigmoid colon region. No definite visible evidence for focal acute diverticulitis. Calcified phleboliths are identified adjacent to the distal left ureter but are not within the ureter. Appendix: No evidence of appendicitis. Intraperitoneal space: No free air. No significant fluid collection. Vasculature: Calcifications in the pelvis, most compatible with phleboliths. Lymph nodes: No enlarged lymph nodes. Urinary bladder: Unremarkable as visualized. Reproductive: Unremarkable as visualized. Bones/joints: Mild generalized bony degenerative changes. Bony structures appear otherwise unremarkable. Soft tissues: Unremarkable. IMPRESSION: 1. No acute abnormality identified. 2. Colonic diverticulosis.
--- NOTE | 2024-09-19 17:25 | HMH.EDGENADL ---
Discharge Plan Disposition Patient Disposition: Home, Self-Care Prescriptions Prescriptions: New cefdinir 300 mg capsule 300 mg PO BID 7 Days Qty: 14 0RF Referrals Follow up/Referrals: Parker Diaz MD [Primary Care Provider] - See instructions Activity Restrictions/Add. Instructions Additional Instructions/Restrictions: Call your family doctor to establish care for this visit to the emergency department and schedule follow-up within 48 hours to ensure improvement. If you have any worsening of your condition or any other concerning signs or symptoms, return to the emergency department or your primary care doctor for further evaluation. Cefdinir twice daily for 7 days Clinical Impressions Clinical Impression: Pyelonephritis Instructions Patient Instructions: DI for Urinary Tract Infection (UTI), DI for Urinary Tract Infection in Children Print Language Print Language: Turkmen Discharge ED Provider: Naseem aPthak General Adult HPI <Denise Chavez APRN - Last Filed: 09/19/24 18:48> General Chief complaint: Urogenital-Female Stated complaint: pain in lower back, when urinating Time Seen by Provider: 09/19/24 16:36 History of Present Illness HPI narrative: Patient is a 43-year-old female PMHx obesity, prediabetic, hypertension, hyperlipidemia, GERD, anxiety, history of multiple UTIs who presents to the ED for left flank pain that started yesterday morning, has been constant. Related Data Previous Rx's ?Medication ?Instructions ?Recorded cefdinir 300 mg capsule 300 mg PO BID 7 days #14 caps 09/19/24 Allergies Allergy/AdvReac Type Severity Reaction Status Date / Time lamotrigine (From Lamictal) Allergy Intermediate I-RASH Verified 07/28/24 18:01 codeine AdvReac Mild NA-NAUSEA Verified 07/28/24 18:01 PFSH <Denise Chavez APRN - Last Filed: 09/19/24 18:48> [facility] Disclaimer: The information contained in this section may have been updated after the patient was seen, as this information can be updated by other users. Medical History (Updated 09/19/24 @ 19:39 by Naseem Pathak MD) Viral syndrome UTI (urinary tract infection) Borderline personality disorder Bipolar 1 disorder Skin problem Palpitations Heel pain, bilateral Chest pain, atypical Pharyngitis Patient left without being seen Wheezing Cough Somnolence Insomnia Tobacco abuse disorder Chronic migraine Rib pain on left side Influenza A Low back pain RSV exposure Bronchitis Strep throat Cough Fracture of left great toe Encounter for laboratory testing for COVID-19 virus Sciatica Low back pain with radiation Thyroid nodule Hyperlipidemia GERD (gastroesophageal reflux disease) Chest pain Contact dermatitis Viral syndrome Gastroenteritis Headache Hypertension Heel spur Pain, foot, right, chronic Obesity (BMI 30.0-34.9) Family History Other Cancer Heart attack Hypertension Thyroid disorder Social History Smoking Status: Never smoker second hand exposure: No alcohol intake: never substance use type: denies use current occupational status: employed Travel in the last 8 weeks?: Inside the [place] number of children: 2 Have you lived/traveled outside US in past 30 days?: No Contact w/someone who lives/traveled outside US past 30 days?: No Exposure to someone with infectious disease in past 14 days?: No Do you have a fever (greater than 100.4 F or 38 C)?: No Have you tested positive for COVID-19?: No Exposed to someone with COVID-19 in past 14 days?: No Do you have a sore throat?: No Do you have a cough?: No Do you have any weakness?: No Do you have any diarrhea?: No Are you experiencing any unusual bleeding?: No Do you have any muscle aches/pain?: No Do you have any abdominal pain?: No Are you experiencing loss of taste or smell?: No Other Medical History Have you received the Flu Vaccine for this season: No Have you received the Pneumonia Vaccine: No <Denise Chavez APRN - Last Filed: 09/19/24 18:48> ROS Obtained: Yes Systems reviewed as appropriate & no additional complaints except as documented Physical Exam <Denise Chavez APRN - Last Filed: 09/19/24 18:48> General General appearance: alert and in no apparent distress Head Head exam: atraumatic and normocephalic Eye Eye exam: Present normal appearance and PERRL ENT ENT exam: Present normal exam Neck Neck exam: Present normal inspection Chest Chest inspection: Present normal inspection and symmetric chest wall rise; Absent tenderness Respiratory Respiratory exam: Present normal lung sounds bilaterally Cardiovascular Cardiovascular exam: Present regular rate Abdominal Exam Abdominal exam: Present soft and normal bowel sounds; Absent tenderness Extremities Exam Extremities exam: Present normal inspection and full ROM Back Exam Back exam: Present full ROM and CVA tenderness (L) Neurological Exam Neurological exam: Present alert and oriented X3 Psychiatric Psychiatric exam: Present normal affect and normal mood Skin Skin exam: Present warm and dry Medical Decision Making <Denise Chavez APRN - Last Filed: 09/19/24 18:48> Medical Records Screening: Per USPSTF and CDC recommendations, given the prevalence of disease in our region, it is our hospital?s policy to screen for HIV and viral Hepatitis for all patients aged 18 and over and those with ongoing risk factors. Jayden Inquiry Pt receiving controlled substance: No Vital Signs: 09/19/24 16:45 Temperature 98.6 F Temperature Source Oral Pulse Rate [Left Radial] 84 Respiratory Rate 17 Blood Pressure [Right Arm] 137/86 Blood Pressure Mean [Right Arm] 103 Blood Pressure Source [Right Arm] Automatic Cuff Blood Pressure Position [Right Arm] Sitting 02 Sat by Pulse Oximetry 98 Oxygen Delivery Method Room Air Lab Data Lab Results 09/19/24 17:13: Urine Color [place], Urine Appearance Slightly cloudy, Urine pH 7.0, Ur Specific [place] 1.015, Urine Protein Trace, Urine Glucose (UA) Negative, Urine Ketones Negative, Urine Blood Negative, Urine Nitrate Positive A, Urine Bilirubin Negative, Urine Urobilinogen 2.0, Ur Leukocyte Esterase Negative, Urine RBC None, Urine WBC Occasional, Ur Squamous Epith Cells 3-5, Urine Bacteria 1+ 09/19/24 17:35: WBC 12.3 H, RBC 4.89, Hgb 14.4, Hct 43.6, MCV 89.2, MCH 29.4, MCHC 33.0, RDW 12.7, Plt Count 307, MPV 9.6, Neut % (Auto) 56.5, Lymph % (Auto) 35.7, [place] % (Auto) 6.7, Eos % (Auto) 0.1, Baso % (Auto) 0.6, Neut # (Auto) 7.0, Lymph # (Auto) 4.4, [place] # (Auto) 0.8, Eos # (Auto) 0.0, Baso # (Auto) 0.1, Total Counted 100, Neutrophils % (Manual) 65, Lymphocytes % (Manual) 30, Monocytes % (Manual) 4, Eosinophils % (Manual) 1, Platelet Estimate Normal, RBC Morphology Normal, Sodium 140, Potassium 4.3, Chloride 107, Carbon Dioxide 28, Anion Gap 9.3, BUN 11, Creatinine 0.50 L, Estimated GFR 136, Est GFR ( Amer) 165, Glucose 103 H, Calcium 9.6, Total Bilirubin 0.5, AST 34, ALT 30, Alkaline Phosphatase 106, Total Protein 7.8, Albumin 4.5, Globulin 3.3 H, Albumin/Globulin Ratio 1.4, Serum HCG, Qual Negative 09/19/24 17:35 09/19/24 17:35 Orders (Tests/Meds): ED MEDICATIONS Discontinued Medications Generic Name Dose Route Start Last Admin Trade Name Freq PRN Reason Stop Dose Admin Cefdinir 300 mg 09/19/24 18:49 09/19/24 19:23 Cefdinir 300mg Capsule PO 09/19/24 18:50 300 mg ONCE ONE Administration Sodium Chloride 500 mls @ 999 mls/hr 09/19/24 17:23 09/19/24 17:54 Sod Chlor 0.9% 1000ml Bag IV 09/19/24 17:53 999 mls/hr .Q31M ONE Administration Ketorolac Tromethamine 15 mg 09/19/24 17:23 09/19/24 17:55 Ketorolac 30mg/Ml Vial IV 09/19/24 17:24 15 mg ONCE ONE Administration ORDERS Category Date Time Status CT abdomen pelvis wo con Stat Cat Scan 09/19/24 17:23 Completed CBC w/Auto Diff [Complete Blood Count Auto Diff] Stat Lab 09/19/24 17:35 Completed CMP [Comprehensive Metabolic Panel] Stat Lab 09/19/24 17:35 Completed HCG Qualitative, Serum Stat Lab 09/19/24 17:35 Completed Urinalysis and Microscopic Stat Lab 09/19/24 17:13 Completed Urine Culture Stat Micro 09/19/24 17:13 Received Medical Decision Narrative: In summary, patient is a 43-year-old female PMHx obesity, prediabetic, hypertension, hyperlipidemia, GERD, anxiety, history of multiple UTIs who presents to the ED for left flank pain that started yesterday morning, has been constant. Patient states she has a history of flank pain, normally drinks cranberry juice and takes Azo and symptoms resolved. However, today pain has persisted in spite of doing this. Patient states she has urgency and frequency however no dysuria. Patient denies malodorous urine. Denies fever, chills, body aches, headache, chest pain, shortness of breath, nausea, vomiting. Differential diagnosis include UTI, interstitial cystitis, renal calculi, pyelonephritis, among others. Upon initial evaluation, patient is alert and oriented, she is hemodynamically stable. Physical exam is remarkable for obesity, left flank tenderness, no suprapubic tenderness. Abdomen is soft. Will proceed with IV fluids, Toradol for symptomatic relief. Discussed with patient we will obtain hematologic labs and CT imaging. Hematologic labs reviewed. CBC remarkable for WBC 12.3, stable H&H. CMP overall unremarkable. Urinalysis color orange, slightly cloudy, negative ketones, positive nitrite, negative leuk esterase, squames and bacteria noted. hCG negative. <Naseem Pathak MD - Last Filed: 09/19/24 19:39> Vital Signs: 09/19/24 16:45 Temperature 98.6 F Temperature Source Oral Pulse Rate [Left Radial] 84 Respiratory Rate 17 Blood Pressure [Right Arm] 137/86 Blood Pressure Mean [Right Arm] 103 Blood Pressure Source [Right Arm] Automatic Cuff Blood Pressure Position [Right Arm] Sitting 02 Sat by Pulse Oximetry 98 Oxygen Delivery Method Room Air Lab Data Lab Results 09/19/24 17:13: Urine Color [place], Urine Appearance Slightly cloudy, Urine pH 7.0, Ur Specific [place] 1.015, Urine Protein Trace, Urine Glucose (UA) Negative, Urine Ketones Negative, Urine Blood Negative, Urine Nitrate Positive A, Urine Bilirubin Negative, Urine Urobilinogen 2.0, Ur Leukocyte Esterase Negative, Urine RBC None, Urine WBC Occasional, Ur Squamous Epith Cells 3-5, Urine Bacteria 1+ 09/19/24 17:35: WBC 12.3 H, RBC 4.89, Hgb 14.4, Hct 43.6, MCV 89.2, MCH 29.4, MCHC 33.0, RDW 12.7, Plt Count 307, MPV 9.6, Neut % (Auto) 56.5, Lymph % (Auto) 35.7, [place] % (Auto) 6.7, Eos % (Auto) 0.1, Baso % (Auto) 0.6, Neut # (Auto) 7.0, Lymph # (Auto) 4.4, [place] # (Auto) 0.8, Eos # (Auto) 0.0, Baso # (Auto) 0.1, Total Counted 100, Neutrophils % (Manual) 65, Lymphocytes % (Manual) 30, Monocytes % (Manual) 4, Eosinophils % (Manual) 1, Platelet Estimate Normal, RBC Morphology Normal, Sodium 140, Potassium 4.3, Chloride 107, Carbon Dioxide 28, Anion Gap 9.3, BUN 11, Creatinine 0.50 L, Estimated GFR 136, Est GFR ( Amer) 165, Glucose 103 H, Calcium 9.6, Total Bilirubin 0.5, AST 34, ALT 30, Alkaline Phosphatase 106, Total Protein 7.8, Albumin 4.5, Globulin 3.3 H, Albumin/Globulin Ratio 1.4, Serum HCG, Qual Negative Orders (Tests/Meds): ED MEDICATIONS Discontinued Medications Generic Name Dose Route Start Last Admin Trade Name Freq PRN Reason Stop Dose Admin Cefdinir 300 mg 09/19/24 18:49 09/19/24 19:23 Cefdinir 300mg Capsule PO 09/19/24 18:50 300 mg ONCE ONE Administration Sodium Chloride 500 mls @ 999 mls/hr 09/19/24 17:23 09/19/24 17:54 Sod Chlor 0.9% 1000ml Bag IV 09/19/24 17:53 999 mls/hr .Q31M ONE Administration Ketorolac Tromethamine 15 mg 09/19/24 17:23 09/19/24 17:55 Ketorolac 30mg/Ml Vial IV 09/19/24 17:24 15 mg ONCE ONE Administration ORDERS Category Date Time Status CT abdomen pelvis wo con Stat Cat Scan 09/19/24 17:23 Completed CBC w/Auto Diff [Complete Blood Count Auto Diff] Stat Lab 09/19/24 17:35 Completed CMP [Comprehensive Metabolic Panel] Stat Lab 09/19/24 17:35 Completed HCG Qualitative, Serum Stat Lab 09/19/24 17:35 Completed Urinalysis and Microscopic Stat Lab 09/19/24 17:13 Completed Urine Culture Stat Micro 09/19/24 17:13 Received Medical Decision Narrative: In summary, patient is a 43-year-old female PMHx obesity, prediabetic, hypertension, hyperlipidemia, GERD, anxiety, history of multiple UTIs who presents to the ED for left flank pain that started yesterday morning, has been constant. Patient states she has a history of flank pain, normally drinks cranberry juice and takes Azo and symptoms resolved. However, today pain has persisted in spite of doing this. Patient states she has urgency and frequency however no dysuria. Patient denies malodorous urine. Denies fever, chills, body aches, headache, chest pain, shortness of breath, nausea, vomiting. Differential diagnosis include UTI, interstitial cystitis, renal calculi, pyelonephritis, among others. Upon initial evaluation, patient is alert and oriented, she is hemodynamically stable. Physical exam is remarkable for obesity, left flank tenderness, no suprapubic tenderness. Abdomen is soft. Will proceed with IV fluids, Toradol for symptomatic relief. Discussed with patient we will obtain hematologic labs and CT imaging. Hematologic labs reviewed. CBC remarkable for WBC 12.3, stable H&H. CMP overall unremarkable. Urinalysis color orange, slightly cloudy, negative ketones, positive nitrite, negative leuk esterase, squames and bacteria noted. hCG negative. I was consulted by the ESPERANZA, and we discussed the complexity of the problems being addressed. I approved the treatment and management plan for this patient's care in the Emergency Department, thus performing a substantive portion of the medical decision making. Independent interpretation of patient's workup, mild leukocytosis and urinalysis with concern for UTI. Patient's CT scan of the abdomen and pelvis independently interpreted with with mild perinephric fat stranding, but otherwise normal. Because patient at baseline without signs or symptoms of clinical decompensation, deemed appropriate for discharge. Results were relayed to patient who voiced understanding and were agreeable to outpatient management and follow up. I discussed my clinical impression with patient and answered all questions. At this time, the evidence for any other entities in the differential is insufficient to warrant any further testing or ED observation. This was explained as well. Advisory was given that persistent or worsening symptoms require further evaluation. I confirmed the understanding of this discussion. Naseem Pathak MD Critical Care <Denise Chavez APRN - Last Filed: 09/19/24 18:48> Critical Care Time Critical Care Time: No
[2024-09-19 17:28] LABS: Microscopic, Urine URINE MICROSCOPIC (MICROSCOPIC)
[2024-09-19 17:31] LABS: Bilirubin,Urine Negative (Negative); Blood, Urine Negative (Negative); Glucose,Urine (UA) Negative (Negative); Ketones,Urine Negative (Negative); Leukocyte Esterase,Urine Negative (Negative); Nitrate,Urine POSITIVE (Negative); Protein,Urine TRACE (Negative); Specific Gravity, Urine 1.015 (1.005-1.030)
[2024-09-19 17:34] LABS: Color,Urine Orange (Yellow)
[2024-09-19 17:35] LABS: Appearance,Urine Slightly Cloudy (Clear)
[2024-09-19 17:45] LABS: Basophils # 0.1 K/mm3 (0-0.2); Basophils % 0.6 % (0.1-2.0); Eosinophils % 0.1 % (0.1-12.0); Hematocrit 43.6 % (37.0-47.0); Hemoglobin 14.4 g/dL (12.2-16.2); Lymphocytes # 4.4 K/mm3 (0.7-4.5); Lymphocytes % 35.7 % (10-50); Mean Corpuscular Hemoglobin 29.4 pg (27.0-31.2); Mean Corpuscular Volume 89.2 fl (81-99); Mean Platelet Volume 9.6 fl (7.4-10.4); Monocytes # 0.8 K/mm3 (0.1-1.0); Monocytes % 6.7 % (1.7-9.3); Neutrophils % 56.5 % (37.0-80.0); Nucleated Red Blood Cells # 0 10^3/uL; Nucleated Red Blood Cells % 0 %; Platelet Count 307 K/mm3 (142-424); Red Blood Count 4.89 M/mm3 (4.20-5.40); Red Cell Distribution Width 12.7 % (11.5-17.5); Red Cell Distribution Width-SD 41.7 fL; White Blood Count 12.3 K/mm3 (4.8-10.8)
[2024-09-19 17:50] LABS: Alanine Aminotransferase 30 U/L (12-78); Albumin Level 4.5 g/dl (3.5-5.0); Albumin/Globulin Ratio 1.4 (1.1-1.8); Alkaline Phosphatase 106 U/L (38-126); Anion Gap 9.3 mEq/L (5-15); Aspartate Amino Transferase 34 U/L (14-36); Bilirubin,Total 0.5 mg/dl (0.2-1.3); Blood Urea Nitrogen 11 mg/dl (7-17); Calcium 9.6 mg/dl (8.4-10.2); Carbon Dioxide 28 mmol/L (22.0-30.0); Chloride 107 mmol/L (98-107); Estimated Glomerular Filt Rate 136 ml/min (>60); GFR (African American) 165 ML/MIN (>60); Globulin 3.3 g/dL (1.3-3.2); Glucose 103 mg/dl (74-100); Potassium 4.3 mmoL/L (3.5-5.1); Sodium 140 mmol/L (136-145); Total Protein,Serum 7.8 g/dl (6.3-8.2)
[2024-09-19] MEDS: 0.9 % SODIUM CHLORIDE 1000ML 500 ML 999 ML IV (17:54)
[2024-09-19] MEDS: KETOROLAC 30MG/ML VIAL 15 MG IV (17:55)
[2024-09-19 18:06] LABS: Bacteria,Urine 1+ /lpf; WBC,Urine Occasional #/hpf (0-3)
[2024-09-19 18:14] LABS: HCG Qualitative, Serum Negative (Negative)
[2024-09-19 18:49] LABS: Total Cells Counted 100
[2024-09-19 18:50] LABS: MANUAL DIFFERENTIAL MANUAL DIFFERENTIAL (MANUAL DIFF)
[2024-09-19 18:53] LABS: Eosinophils % 1 % (0-3); Lymphocytes % 30 % (10-50); Monocytes % 4 % (2-9); Neutrophils % 65 % (42-76); Platelet Estimate Normal; RBC Morphology Normal
--- NOTE | 2024-09-19 19:18 | PC.NURSE ---
Report received from Jermaine JONES Pt resting quietly in recliner awaiting results Skin pink warm and dry Resp full and easy Speech clear and appropriate
[2024-09-19] MEDS: CEFDINIR 300MG CAPSULE 300 MG PO (19:23)
[2024-09-19 19:52] VITALS: BP 130/80; PULSE 82; RESP 20; TEMP 36.7; O2SAT 97
--- NOTE | 2024-09-23 09:18 | PC.NURSE ---
I spoke with about the pts final urine culture results. no change needed to treatment plan at this time.
== END 2024-09-19 19:53 | disposition home or self-care (01) ==
PROVIDERS: Nurse Practitioner; Emergency Provider Emergency Medicine; PCP Family Medicine
DX: N10 Acute pyelonephritis (principal); M54.59 Other low back pain; R39.15 Urgency of urination; R35.0 Frequency of micturition
CPT/HCPCS: 74176; 80053; 81001; 84703; 85007; 85025; 85027; 87086; 96374; 99284; J1885; J7030

== ENCOUNTER 2024-12-06 23:24 | Emergency (ER) | payer MEDICAID, SELFPAY ==
[2024-12-06 23:29] VITALS: BP 160/78; PULSE 59; RESP 18; TEMP 37.1; O2SAT 100; BMI 40.3
--- NOTE | 2024-12-06 23:34 | ED_ITS ---
Discharge Plan Disposition Patient Disposition: Home, Self-Care Prescriptions Prescriptions: New lidocaine 5 % adhesive patch,medicated 1 patch topical DAILY PRN (Reason: pain) Qty: 30 0RF Rx Instructions: leave on most painful area for up to 12 hrs No Action cefdinir 300 mg capsule 300 mg PO BID 7 Days Qty: 14 0RF Referrals Follow up/Referrals: Parker Diaz MD [Primary Care Provider, Family Practice] - See instructions Activity Restrictions/Add. Instructions Additional Instructions/Restrictions: Please follow-up with your primary care provider for further workup including possible biopsy. Please return to the emergency department if you develop any new or worsening symptoms or become concerned for your health. Clinical Impressions Clinical Impression: Skin lesion Instructions Patient Instructions: DI for Skin Abscess Print Language Print Language: [place]ican Discharge ED Provider: Pete Jiménez General Adult HPI General Chief complaint: Skin/Abscess/Foreign Body Stated complaint: mass on side of forehead, pain Time Seen by Provider: 12/06/24 23:34 Mode of Arrival: Ambulatory Source of Information: Patient Description of Symptoms (Recalled from ER Triage Doc. by RN): pt to ED with lump to left side of forehead x3 months, is now sore and getting bigger History of Present Illness HPI narrative: 43-year-old female without significant past medical history presents for knot on her left forehead/catholic it has been getting bigger for the last 3 months or so, more sore and painful today. No overlying redness. It is firm to touch. It is mobile. No reported injury. It has been growing in size. Related Data Previous Rx's ?Medication ?Instructions ?Recorded cefdinir 300 mg capsule 300 mg PO BID 7 days #14 cap s 09/19/24 lidocaine 5 % topical patch 1 patch topical DAILY PRN pain #30 12/06/24 ea Allergies Allergy/AdvReac Type Severity Reaction Status Date / Time lamotrigine (From Lamictal) Allergy Intermediate I-RASH Verified 07/28/24 18:01 codeine AdvReac Mild NA-NAUSEA Verified 07/28/24 18:01 [facility] Disclaimer: The information contained in this section may have been updated after the patient was seen, as this information can be updated by other users. Medical History (Updated 12/06/24 @ 23:35 by Pete Jiménez MD) Viral syndrome UTI (urinary tract infection) Borderline personality disorder Bipolar 1 disorder Skin problem Palpitations Heel pain, bilateral Chest pain, atypical Pharyngitis Patient left without being seen Wheezing Cough Somnolence Insomnia Tobacco abuse disorder Chronic migraine Rib pain on left side Influenza A Low back pain RSV exposure Bronchitis Strep throat Cough Fracture of left great toe Encounter for laboratory testing for COVID-19 virus Sciatica Low back pain with radiation Thyroid nodule Hyperlipidemia GERD (gastroesophageal reflux disease) Chest pain Contact dermatitis Viral syndrome Gastroenteritis Headache Hypertension Heel spur Pain, foot, right, chronic Obesity (BMI 30.0-34.9) Family History Other Cancer Heart attack Hypertension Thyroid disorder Social History Smoking Status: Unknown if ever smoked second hand exposure: No alcohol intake: never substance use type: denies use current occupational status: employed Travel in the last 8 weeks?: Inside [facility] number of children: 2 Have you lived/traveled outside US in past 30 days?: No Contact w/someone who lives/traveled outside [place] past 30 days?: No Exposure to someone with infectious disease in past 14 days?: No Do you have a fever (greater than 100.4 F or 38 C)?: No Have you tested positive for COVID-19?: No Exposed to someone with COVID-19 in past 14 days?: No Do you have a sore throat?: No Do you have a cough?: No Do you have any weakness?: No Do you have any diarrhea?: No Are you experiencing any unusual bleeding?: No Do you have any muscle aches/pain?: No Do you have any abdominal pain?: No Are you experiencing loss of taste or smell?: No Other Medical History Have you received the Flu Vaccine for this season: No Have you received the Pneumonia Vaccine: No ROS Obtained: Yes All systems reviewed & no additional complaints except as documented Physical Exam General General appearance: alert and in no apparent distress Head Head exam: atraumatic, normocephalic and other (Approximately 1 cm diameter raised tender knot on the left catholic/lateral forehead. Mobile, firm, no overlying erythema or skin injury) Eye Eye exam: Present normal appearance, PERRL and EOMI ENT ENT exam: Present normal oropharynx and normal external ear exam Neck Neck exam: Present normal inspection and full ROM Chest Chest inspection: Present normal inspection and symmetric chest wall rise; Absent tenderness Respiratory Respiratory exam: Present normal lung sounds bilaterally; Absent respiratory distress Cardiovascular Cardiovascular exam: Present regular rate and normal rhythm Abdominal Exam Abdominal exam: Present soft; Absent distention, tenderness or guarding Extremities Exam Extremities exam: Present normal inspection; Absent edema or joint swelling Back Exam Back exam: Present normal inspection; Absent tenderness Neurological Exam Neurological exam: Present alert and oriented X3; Absent motor sensory deficit Psychiatric Psychiatric exam: Present normal affect and normal mood Skin Skin exam: Present warm, dry and normal color Lymphatic Lymphatic Findings: no adenopathy Medical Decision Making Medical Records Medical records reviewed: Yes I reviewed the patient's medical records. Screening: Per USPSTF and CDC recommendations, given the prevalence of disease in our region, it is our hospital?s policy to screen for HIV and viral Hepatitis for all patients aged 18 and over and those with ongoing risk factors. Jayden Inquiry Pt receiving controlled substance: No Jayden was queried for this patient: No Vital Signs: 12/06/24 23:29 12/06/24 23:42 Temperature 98.7 F 98.7 F Temperature Source Oral Oral Pulse Rate 58 L Pulse Rate [Left Radial] 59 L Respiratory Rate 18 18 Blood Pressure 160/78 H Blood Pressure [Right Arm] 160/78 H Blood Pressure Mean [Right Arm] 105 Blood Pressure Source [Right Arm] Automatic Cuff Blood Pressure Position [Right Arm] Sitting 02 Sat by Pulse Oximetry 100 Oxygen Delivery Method Room Air Room Air Lab Data Lab results reviewed: Yes I reviewed the patient's lab results. Orders (Tests/Meds): ED MEDICATIONS Discontinued Medications Generic Name Dose Route Start Last Admin Trade Name Joseq PRN Reason Stop Dose Admin Lidocaine 1 each 12/06/24 23:35 12/06/24 23:57 Lidocaine 5% Transdermal Patch TD 12/06/24 23:36 1 each ONCE ONE Administration ORDERS Category Date Time Status POCUS Point of Care (ER Only) Stat Exams 12/06/24 23:52 Completed Medical Decision Narrative: 43-year-old female without significant past medical history presents for slow-growing knot on the left catholic.. History was obtained via interactive discussion with patient, family, chart review. On arrival, patient is [afebrile, hemodynamically stable, satting appropriately, alert, oriented x4, GCS 15], moving all extremities spontaneously. Full physical exam performed and significant for Approximately 1 cm diameter raised tender knot on the left catholic/lateral forehead. Mobile, firm, no overlying erythema or skin injury Differential includes but is not limited to temporal artery aneurysm, cyst, abscess, stromal tumor, lymph node. Bedside ultrasound was performed. Approx imately 1 cm diameter round solid nodule, no vascularity, does not appear to be a lymph node, no surrounding cobblestoning to suggest cellulitis. Unclear exactly what it is, my guess would be a small soft tissue tumor. The patient follow-up with her PCP for further assessment, formal ultrasound, biopsy etc. Limited soft tissue ultrasound Indication: Soft tissue swelling Identified structures: Location: Left catholic/forehead Findings: Proximately 1 cm diameter round solid nodule without surrounding cobblestoning, no vascularity Impression: Soft tissue nodule without infection Images were saved to permanent archive The study was technically adequate Soft Tissue CPT Codes: CPT Other Soft Tissue: 38288-26 This study was performed by me, and I personally interpreted all images/videos. Procedures Risk/Benefits of Procedure(s) Were Explained: Yes Critical Care Critical Care Time Critical Care Time: No
--- OUTSIDE RECORDS SUMMARY | 2024-12-06 23:38 | XMS_ITS | Clinical Summary ---
Author Organization Healthcare Address [address] [place] [address] Care Team Providers Care Pm Technician Name Role Phone Parker Rose MD Primary Care Provider [phone] Family History Medical History Relation Name Comments Lung cancer Father Cardiac disorder Mother Thyroid disease Mother Cardiac disorder Other 1 Diabetes Other 2 Relation Name Status Comments Father Mother Other 1 Other 2 Social History Tobacco Use Types Packs/Day Years Used Date Smoking Tobacco: Every Day Comments:Smokes 1 pack of ci garettes per day Alcohol Use Standard Drinks/Week Comments No 0 (1 standard drink = 0.6 oz pur e alcohol) Comments Unknown Sex and Gender Information Value Date Recorded Sex Assigned at Not on file Legal Sex Female 8:17 PM EDT Gender Identity Not on file Sexual Orientation Not on file Last Filed Vital Signs Vital Sign Reading Time Taken Comments Blood Pressure - - Pulse - - Temperature - - Respiratory Rate - - Oxygen Saturation - - Inhaled Oxygen Concentration - - Weight 103 kg (225 lb 15.9 oz) 04/29/2017 8:54 A M EST Height 167.6 cm (5' 6 ) 04/29/2017 8:54 AM EST Body Mass Index 36.48 04/29/2017 8:54 AM EST Plan of Treatment Not on file Care Teams Pm Technician Relationship Specialty Start Date End Date Parker Rose MD [address] [place] [address] [place] [address] PCP - General 09/28/20
--- OUTSIDE RECORDS SUMMARY | 2024-12-06 23:38 | XMS_ITS | Encounter Summary ---
Author Organization Healthcare Address [address] [place] [address] Care Team Providers Care Bulk Plant Agent Name Role Phone Parker Rose MD Primary Care Provider [phone] Encounter Details Date Type Department Care Team (Late st Contact Info) Description 06/08/2023 Community [facility] [address] [place] [address] Jaydon Shook, DMD [address] [facility] [place] [address] Caries (Primary Dx); Edentulism Social History Tobacco Use Types Packs/Day Years [...] on file Sexual Orientation Not on file documented as of this encounter Plan of Treatment Not on file documented as of this encounter Visit Diagnoses Diagnosis Caries- Primary Edentulism documented in this encounter Care Teams Bulk Plant Agent Relationship Specialty Start Date End Date [place] [address] PCP - General 09/28/20 documented as of this encounter
[2024-12-06 23:42] VITALS: BP 160/78; PULSE 58; RESP 18; TEMP 37.1; O2SAT 99
[2024-12-06] MEDS: LIDOCAINE 5% TRANSDERMAL PATCH 1 EACH TD (23:57)
== END 2024-12-06 23:57 | disposition home or self-care (01) ==
PROVIDERS: Emergency Provider Emergency Medicine; PCP Family Medicine
DX: L98.9 Disorder of the skin and subcutaneous tissue, unspecified (principal); I10 Essential (primary) hypertension; E78.5 Hyperlipidemia, unspecified; K21.9 Gastro-esophageal reflux disease without esophagitis; F41.9 Anxiety disorder, unspecified
CPT/HCPCS: 99284